=== PATIENT | female | born 1930 | race Caucasian/White ===

== ENCOUNTER → 2016-06-18 | Outpatient (CLI) | payer MEDICARE, OTHER ==
[~2016-06-18] MED LIST: ACID1CHW5 PO; ALLE180T33 PO; AMLO5TAB2 PO; ASPI1TAB PO; ASPI81TA85 PO; CALCTAB68 PO; CLOP75TA2 PO; GABA-279 PO; MULTCAP PO; PLAV75TA38 PO; STRETAB4 PO; VALS1TAB47 PO
--- NOTE | 2016-06-18 17:07 | REPMRS ---
Patient History The patient states she had a clinical breast exam in 05/2016. Patient is postmenopausal and has history of other cancer at age 37. No known family history of cancer. Benign lumpectomy of the left breast. Digital Woman Screen Mammo: June 18, 2016 - Exam #: [id number] Bilateral CC and MLO view(s) were taken. Technologist: Yudy Corrigan, Technologist Prior study comparison: March 20, 2015, digital woman screen mammo performed at [facility]. February 16, 2014, digital woman screen mammo performed at [facility] to [facility]. March 23, 2012, bilateral bilat screen digital mammo, performed at [facility] ([facility]). FINDINGS: The breast tissue is heterogeneously dense. This may lower the sensitivity of mammography. There is a moderate amount of heterogeneously dense fibroglandular tissue which is fairly symmetric. There is no interval development of dominant mass, architectural distortion, or clustered microcalcification typical of malignancy. There has been no change in the appearance of the mammogram from the prior studies. ASSESSMENT: BI-RADS/ACR category 1 mammogram. Negative. Recommendation Routine screening mammogram of both breasts in 1 year (for women over age 40). This mammogram was interpreted with the aid of an FDA-approved computer-aided dectection system. Electronically Signed By: Wu Mathur MD 06/18/16 [id number]
== END ==
LOC: M WHC 14:28
PROVIDERS: ATTEND Nurse Practitioner Family
DX: Z12.31 Encounter for screening mammogram for malignant neoplasm of breast (principal); Z78.0 Asymptomatic menopausal state; Z92.89 Personal history of other medical treatment
CPT/HCPCS: G0202; G0463

== ENCOUNTER → 2016-09-18 | Outpatient (REF) | payer MEDICARE, OTHER ==
[2016-09-18 19:15] LABS: PERCENT SATURATION 15.1 % (13.2-37.4)
== END ==
LOC: M LAB REF 17:23
PROVIDERS: ATTEND Internal Medicine
DX: D64.9 Anemia, unspecified (principal)

== ENCOUNTER → 2017-01-22 | Outpatient (REF) | payer MEDICARE, OTHER, MEDICAID ==
[~2017-01-22] MED LIST changes: +PLAV1TAB2 PO; -PLAV75TA38 PO
[2017-01-22 21:27] LABS: PERCENT SATURATION 20.1 % (13.2-45.0)
== END ==
LOC: M LAB REF 15:01
PROVIDERS: ATTEND Internal Medicine
DX: D50.9 Iron deficiency anemia, unspecified (principal)

== ENCOUNTER → 2017-01-27 | Outpatient (REF) | payer MEDICARE, OTHER, MEDICAID | LOC: M LAB REF 14:54 | PROVIDERS: ATTEND Internal Medicine | DX: N30.00 Acute cystitis without hematuria (principal) ==

== ENCOUNTER 2017-04-13 05:51 | Inpatient (IN) | payer MEDICARE, OTHER, MEDICAID ==
[~2017-04-13] VITALS: Ht 157.5 cm; Wt 58.7 kg
[2017-04-13 07:13] LABS: BASO # 0.1 10^3/uL (0.0-0.2); BASO % 0.4 % (0.0-1.0); EOS # 0.5 10^3/uL (0.0-0.50); EOS % 3.2 % (0.0-3.0); IMMATURE GRANULOCYTE % 0.7 % (0-0); LYMPH # 1.2 10^3/uL (1.5-4.5); LYMPH % 8.2 % (24.0-44.0); MEAN CORPUSCULAR HEMOGLOBIN 30.6 pg (27.0-33.0); MEAN CORPUSCULAR HGB CONC 32.7 g/dl (32.0-36.5); MEAN CORPUSCULAR VOLUME 93.6 fl (80.0-96.0); MONO # 0.5 10^3/uL (0.0-0.8); MONO % 3.8 % (0.0-5.0); NEUTROPHILS # 11.7 10^3/uL (1.8-7.7); NEUTROPHILS % 83.7 % (36.0-66.0); PLATELET COUNT, AUTOMATED 295 10^3/uL (150-450); RED CELL DISTRIBUTION WIDTH 13.7 % (11.5-14.5)
[2017-04-13 07:24] LABS: INR 0.98
[2017-04-13 07:40] LABS: ANION GAP 4 MEQ/L (8-16); BLOOD UREA NITROGEN 14 MG/DL (7-18); CALCIUM LEVEL 8.9 MG/DL (8.8-10.2); CARBON DIOXIDE LEVEL 29 MEQ/L (21-32); CHLORIDE LEVEL 108 MEQ/L (98-107); CREATININE FOR GFR 0.75 MG/DL (0.55-1.02); GLOMERULAR FILTRATION RATE > 60.0 (>32); GLUCOSE, FASTING 110 MG/DL (83-110); POTASSIUM SERUM 4.4 MEQ/L (3.5-5.1); SODIUM LEVEL 141 MEQ/L (136-145)
--- NOTE | 2017-04-13 08:08 | REP ---
Clinical: Trauma. Fall. Technique: Frontal view of the pelvis with AP and cross-table lateral views of the right hip. Findings: There is a comminuted intertrochanteric fracture of the right hip. Underlying osteopenia and degenerative changes noted throughout the visualized lumbosacral spine, pelvis and hips. Vascular calcifications noted. No subcutaneous emphysema. Impression: Acute comminuted intertrochanteric fracture of the right hip. Signed by Julio De La Vega MD 04/13/2017 08:00 A
[2017-04-13] MEDS: VALSARTAN 80 MG TAB (DIOVAN) PO SCH (09:00)
[2017-04-13] MEDS: DOCUSATE SODIUM 100 MG CAP PO SCH ×2 (09:00→21:00)
[2017-04-13] MEDS ORDERED: VALSARTAN 80 MG TAB (DIOVAN) PO ONE (09:00)
[2017-04-13] MEDS ORDERED: amLODIPine 5 MG TAB PO ONE (09:00)
[2017-04-13] MEDS ORDERED: amLODIPine 5 MG TAB PO SCH (09:00)
[2017-04-13] MEDS: FERROUS GLUCONATE 324 MG TAB PO SCH (09:00)
[2017-04-13] MEDS: FEXOFENADINE 60 MG TAB PO SCH (09:00)
--- NOTE | 2017-04-13 09:40 | REP ---
Clinical: Hip fracture. Technique: AP and lateral views of the right knee. Findings: Osteopenia and degenerative changes are appreciated. No acute fracture or dislocation is identified involving the knee. Vascular calcifications noted. Impression: Osteopenia and degenerative changes. No acute knee fracture / dislocation. Signed by Julio De La Vega MD 04/13/2017 09:32 A
[2017-04-13] MEDS ORDERED: MORPHINE 2 MG/ML 1ML SYRINGE IV ONE (10:15)
--- NOTE | 2017-04-13 10:22 | HPEPDOC ---
[facility] Medical History & Physical Date of Admission Apr 13, 2017 Primary Care Physician: TREY GONZALES DO Attending Physician: KEENA TA MD History and Physical PRIMARY CARE PROVIDER: Trey Gonzales ATTENDING: Keena Ta MD CHIEF COMPLAINT: Right hip pain HISTORY OF PRESENT ILLNESS: This is a 86-year-old female past medical history of peripheral artery disease with left leg ischemia and 2013 status post thrombus lysis, osteoporosis, hypertension, history of uterine cancer status post hysterectomy, history of GI bleed who presents with right hip pain status post fall. Patient states her fall was mechanical in nature which occurred as she was getting up to reach for her purse. She reached for her walker for stabilization however lost her balance and fell on her right side resulting in hip pain. Patient denies any loss of consciousness. No head trauma. No chest pain/ shortness of breath/palpitations. No headache or dizziness. No focal weakness. Patient denies nausea/vomiting/abdominal pain. No diarrhea. No dysuria. Says she occasionally has urinary incontinence. Of note, patient does states that she is still functional as she can be with her walker and states she walks all around [facility] with her walker, without chest pain/shortness of breath/palpitations on ambulation. She denies any history of heart disease. PAST MEDICAL HISTORY: As per HPI PAST SURGICAL HISTORY: Hysterectomy and thrombolysis of the left lower extremity in 2012. SOCIAL HISTORY: Denies tobacco, alcohol, illicit drug use. Lives at [facility]. FAMILY HISTORY: Noncontributory ALLERGIES: Please see below. REVIEW OF SYSTEMS: HEENT: Denies sore throat/headache CARDIOVASCULAR: Denies chest pain/palpitations RESPIRATORY: Denies shortness of breath/cough GASTROINTESTINAL: denies nausea/vomiting GENITOURINARY: Denies dysuria/urinary urgency. MUSCULOSKELETAL: Denies myalgias/arthralgias NEUROLOGICAL: Denies any focal weakness HOME MEDICATIONS: Please see below. PHYSICAL EXAMINATION: Vitals: (see below) General: No acute distress, laying comfortably in bed. HEENT: Moist mucous membranes. Neck: No JVD or lymphadenopathy Cardiac: RRR, No murmurs Pulm: Clear to auscultation b/l. No wheezing, rhonchi Abd: NT/ND + BS Ext: No edema or cyanosis. Right hip pain with movements. Distal pulses intact. LABORATORY DATA: See below. IMAGING: X-ray right hip 04/13/17 Impression: Acute comminuted intertrochanteric fracture of the right hip. Chest x-ray 04/13/70 with no acute pulmonary disease MICROBIOLOGY: Please see below. ASSESSMENT/PLAN: 1. Acute comminuted intertrochanteric fracture of the right hip status post mechanical fall. Patient denies any chest pain/syncope/shortness of breath/ palpitations. She has moderate functional status, however is difficult to gauge her exertional status. She has no history of heart disease that she notes. Orthopedics and tends to take the patient to the OR today. We will optimize the patient's blood pressure prior to that. The patient's RCRI score is 0 with a 0.4% risk of major cardiac events. She will be undergoing a intermediate risk procedure. 2. Hypertensive urgency- patient states she did not take her blood pressure medications this morning, and she is in pain is well. We will restart the patient's home blood pressure medications. Blood pressure improved after starting home meds.. 3. Peripheral artery disease status post thrombolysis in 2012- aspirin and Plavix on hold for now pending OR. Consider restarting depending on DVT prophylaxis per orthopedics after the OR. 4. History of osteopenia/osteoporosis- on calcium. We'll need to follow-up with her primary care physician for starting bisphosphonates 5. History of GI bleed, stable. Hemoglobin stable. No need for transfusion at this time. 6. History of uterine cancer status post hysterectomy 7. Leukocytosis- likely reactive secondary to mechanical fall. Afebrile. Denies cough/dysuria. No diarrhea. No rash. Blood cultures sent. Chest x-ray negative. Urinalysis pending. Continue to monitor. If WBC continues to rise, or a source of infection is noted, consider starting antibiotics. DVT prophylaxis- per orthopedics Patient is medically optimized. Vital Signs Vital Signs Date Time Temp Pulse Resp B/P (MAP) Pulse Ox O2 Delivery O2 Flow Rate FiO2 04/13/17 09:51 196/80 04/13/17 09:49 94 04/13/17 06:12 98.3 20 95 Room Air Laboratory Data Labs 24H Laboratory Tests 2 04/13/17 06:56: Immature Granulocyte % (Auto) 0.7H, White Blood Count 14.0H, Red Blood Count 4.38, Hemoglobin 13.4, Hematocrit 41.0, Mean Corpuscular Volume 93.6, Mean Corpuscular Hemoglobin 30.6, Mean Corpuscular Hemoglobin Concent 32.7, Red Cell Distribution Width 13.7, Platelet Count 295, Neutrophils (%) (Auto) 83.7H, Lymphocytes (%) (Auto) 8.2L, Monocytes (%) (Auto) 3.8, Eosinophils (%) (Auto) 3.2H, Basophils (%) (Auto) 0.4, Neutrophils # (Auto) 11.7H, Lymphocytes # (Auto ) 1.2L, Monocytes # (Auto) 0.5, Eosinophils # (Auto) 0.5, Basophils # (Auto) 0.1 , Immature Granulocyte # (Auto) 0.1H, Nucleated Red Blood Cells % (auto) 0.0, Prothrombin Time 13.1, Prothromb Time International Ratio 0.98, Anion Gap 4L, Glomerular Filtration Rate > 60.0, Blood Urea Nitrogen 14, Creatinine 0.75, Sodium Level 141, Potassium Level 4.4, Chloride Level 108H, Carbon Dioxide Level 29, Calcium Level 8.9 CBC/BMP Laboratory Tests 04/13/17 06:56 Red Blood Count 4.38, Mean Corpuscular Volume 93.6, Mean Corpuscular Hemoglobin 30.6, Mean Corpuscular Hemoglobin Concent 32.7, Red Cell Distribution Width 13.7 , Neutrophils (%) (Auto) 83.7 H, Lymphocytes (%) (Auto) 8.2 L, Monocytes (%) ( Auto) 3.8, Eosinophils (%) (Auto) 3.2 H, Basophils (%) (Auto) 0.4, Neutrophils # (Auto) 11.7 H, Lymphocytes # (Auto) 1.2 L, Monocytes # (Auto) 0.5, Eosinophils # (Auto) 0.5, Basophils # (Auto) 0.1, Calcium Level 8.9 Home Medications Scheduled (Dorzolamide HCl/Timolol M 22.3-6.8 mg/ml) 1 Mirna Mirna, 1 DROP OU BID Amlodipine Besylate (Amlodipine Besylate) 5 Mg Tab, 5 MG PO DAILY Calcium/Vitamin D (Calcium 600 + D 600-400 mg-Unit) 1 Tab Tab, 1 TAB PO BID Clopidogrel Bisulfate (Plavix) 75 Mg Tab, 75 MG PO DAILY Ferrous Gluconate (Ferrous Gluconate) 324 Mg Tab, 324 MG PO DAILY Fexofenadine Hydrochloride (Adrienne Allergy) 180 Mg Tab, 180 MG PO DAILY 1200 Gabapentin (Gabapentin) 100 Mg Cap, 100 MG PO QPM Lactobacillus (Acidophilus) 1 Tab Tab, 1 TAB PO BID Latanoprost (Latanoprost) 50 Drop/2.5 Ml Soln, 1 DROP OU QHS Ranitidine HCl (Ranitidine HCl) 150 Mg Tab, 1 TAB PO DAILY 1200 Valsartan (Valsartan) 160 Mg Tab, 160 MG PO DAILY Scheduled PRN Acetaminophen (Acetaminophen) 500 Mg Tab, 500 MG PO Q8H PRN for PAIN Fluocinonide (Fluocinonide-E) 0.05 % Cre, 0.05 % TOP BID PRN for BCC APPLY TO FOREHEAD Milk Of Magnesia (Milk of Magnesia) 1,200 Mg/15 Ml Mabel, 30 ML PO DAILY PRN for CONSTIPATION Allergies Coded Allergies: Sulfa Drugs (Unverified Allergy, Mild, 08/25/12) Sulfa Drugs Cross Reactors (Unverified Allergy, Mild, 08/25/12) KEENA TA MD Apr 13, 2017 10:22
--- NOTE | 2017-04-13 10:49 | REP ---
Clinical: Shortness of breath. Comparison: None . Findings: The mediastinum and cardiac silhouette are stable and within normal limits for portable technique. The lung [place] are clear without acute consolidation, effusion, or pneumothorax. Skeletal structures are intact. Impression: No definite acute cardiopulmonary process by portable examination. Signed by Julio De La Vega MD 04/13/2017 10:40 A
[2017-04-13] MEDS ORDERED: hydrALAZINE INJ 20 MG/ML VIAL IV STA (11:01)
[2017-04-13] MEDS ORDERED: MORPHINE 2 MG/ML 1ML SYRINGE IV PRN ×2 (11:15→22:45)
[2017-04-13] MEDS ORDERED: ONDANSETRON 4MG/2ML VIAL (J2405) IV PRN ×3 (11:15→22:45)
[2017-04-13] MEDS ORDERED: MILKSUS PO (12:31)
[2017-04-13] MEDS ORDERED: FLUOCRE TOP (12:31)
[2017-04-13] MEDS ORDERED: ACET50TAOT PO (12:31)
[2017-04-13] MEDS ORDERED: DORZ2SOL5 OU (12:31)
[2017-04-13] MEDS ORDERED: ACIDTAB7 PO (12:31)
[2017-04-13] MEDS ORDERED: LATA5OPD OU (12:35)
[2017-04-13] MEDS ORDERED: RANI150T PO (12:35)
[2017-04-13] MEDS ORDERED: FERR32TA PO (12:35)
--- NOTE | 2017-04-13 14:44 | CR ---
DATE OF CONSULTATION: 04/13/2017 INDICATION: Right hip fracture. HISTORY OF PRESENT ILLNESS: Mrs. Patel is a very pleasant 86-year-old female who suffered a mechanical fall and landed on her right hip. She had immediate pain and was unable to bear weight. The patient denied loss of consciousness. She is currently admitted to the hospitalist service, but physically in the emergency department. She is reporting right hip pain, 6 out of 10 on the pain scale. Denies right knee pain. Denies numbness and tingling. Past medical history notable for peripheral vascular disease and a left lower extremity thrombus, status post embolectomy. She takes Plavix and aspirin for that. For the rest of the patient's past medical history, past surgical history, medications, allergies, and review of systems, please see the admitting history and physical by the hospitalist, which I personally reviewed. SOCIAL HISTORY: Patient is a walker ambulator and she does get out of the house fairly regularly. She does not smoke, abuse alcohol or illicit drugs. Her daughter Dawna is her healthcare proxy. Phone number [phone]. REVIEW OF SYSTEMS: The patient denies neurologic, cardiac, pulmonary or abdominal symptoms. Musculoskeletal symptoms as above. PHYSICAL EXAMINATION: Exam reveals and elderly female in no distress. She is alert and oriented times three. Neurologic appropriate mood and pleasant affect. HEENT: Patient has a deep abrasion/wound over her forehead from a dermatologic procedure, unrelated to the fall. Extraocular movements intact. CARDIOVASCULAR: She has a 2+ dorsalis pedis pulse with a regular rate and the foot is warm and well perfused. PULMONARY: Regular, nonlabored breathing. ABDOMEN: Nontender, nondistended. SKIN: Skin in the right hip is intact without lesions. MUSCULOSKELETAL: The patient's right leg is slightly shortened and externally rotated. She is tender to palpation at the greater trochanter. There is no significant bruising, no hematoma, and the knee is nontender. She wiggles her toes and sensation to light touch is grossly intact distally. RADIOLOGY: Two views of the right hip, femur and knee were obtained and available for my review. There is a mildly displaced three part proximal femur fracture, which is intertrochanteric. There is mild degenerative changes of the hip joint. I do not appreciate any pathologic lesions. Peripheral artery calcification. ASSESSMENT/PLAN: Mrs. Patel is an 86-year-old female with a right hip intertrochanteric fracture. She has already been evaluated by the hospitalist and has been medically optimized other than getting her blood pressure down a touch. It is already better from admission. The plan is to proceed with an open reduction internal fixation (ORIF) using a long cephalomedullary nail later today if the operating room will accommodate this. I had a long discussion with the patient about operative and nonoperative treatment as well as different surgical options. I have recommended ORIF with a cephalomedullary nail. Plan would be to do a long nail, certainly an intermediate short nail is also acceptable. After a full discussion of the risks and benefits, written informed consent was obtained. I have attempted to reach her daughter Dawna and have been unsuccessful and will try to touch base prior to surgery.
[2017-04-13] MEDS ORDERED: hydrALAZINE INJ 20 MG/ML VIAL IV SCH (15:00)
[2017-04-13 16:00] VITALS: BP 145/72
[2017-04-13] MEDS ORDERED: MOM 30ML SUSPENSION UDC PO PRN (16:30)
[2017-04-13] MEDS ORDERED: FLUOCINONIDE 0.05% CREAM 15 GM TOP PRN (16:30)
[2017-04-13] MEDS ORDERED: ceFAZolin 1GM INJ (J0690) As Ordered ONE ×2 (19:45→20:04)
[2017-04-13] MEDS ORDERED: fentaNYL 100 MCG/2 ML INJECTION (J3010) As Ordered ONE ×2 (20:40→20:57)
[2017-04-13] MEDS ORDERED: ROCURONIUM BROMIDE 50 MG/5 ML VIAL/SYRINGE As Ordered ONE (20:40)
[2017-04-13] MEDS ORDERED: LIDOCAINE 2% INJ 100 MG/5 ML SDV (FOR ANES.) As Ordered ONE (20:40)
[2017-04-13] MEDS ORDERED: MIDAZOLAM INJ 2 MG/2 ML VIAL (J2250) As Ordered ONE (20:40)
[2017-04-13] MEDS ORDERED: PROPOFOL 200 MG/20 ML VIAL As Ordered ONE (20:40)
[2017-04-13] MEDS: COSOPT OCUMETER PLUS 10ML (DORZOLAMIDE/TIMOLOL) OU SCH (21:00)
[2017-04-13] MEDS ORDERED: PHENYLephrine HCL 500 MCG/5 ML (100MCG/ML) SYRINGE (J2370) As Ordered ONE (21:07)
[2017-04-13] MEDS ORDERED: ePHEDrine SULFATE 25 MG/5 ML(5MG/ML) SYRINGE As Ordered ONE (21:08)
[2017-04-13] MEDS ORDERED: ONDANSETRON 4MG/2ML VIAL (J2405) As Ordered ONE ×2 (21:12→22:39)
[2017-04-13] MEDS ORDERED: NEOSTIGMINE 10 MG/10 ML VIAL (J2710) As Ordered ONE (21:13)
[2017-04-13] MEDS ORDERED: GLYCOPYRROLATE INJ 0.2 MG/ML 2 ML VIAL As Ordered ONE (21:13)
--- NOTE | 2017-04-13 21:20 | ECGEPIP ---
Stationary ECG Study [facility] Test Date: 2017-04-13 Pat Name: BEN HIDALGO Department: Room: [place] [address] Gender: F Fire Lieutenant Marine: AFUA : [id number] Requested By: KEENA TA Order Number: [id number] Reading MD: Damion Ku Measurements Intervals [place] Rate: 89 P: 32 AK: 154 QRS: -3 QRSD: 86 T: 0 QT: 354 QTc: 431 Interpretive Statements Normal sinus rhythm Nonspecific ST-T wave abnormalities Comparison tracing not on file Electronically Signed On 04-13-2017 21:20:49 EST by Damion Ku
[2017-04-13] MEDS ORDERED: LR 1,000 ML IV SCH ×2 (22:45)
[2017-04-13] MEDS ORDERED: ACETAMINOPH W/CODEINE #3 TAB UD PO PRN (22:45)
[2017-04-13] MEDS ORDERED: fentaNYL 100 MCG/2 ML INJECTION (J3010) IV PRN ×2 (22:45→23:00)
[2017-04-13] MEDS ORDERED: METOCLOPRAMIDE INJ 10MG/2ML VIAL (J2765) As Ordered ONE (22:56)
[2017-04-13] MEDS ORDERED: FLEET ENEMA PR PRN (23:00)
[2017-04-13] MEDS ORDERED: METOCLOPRAMIDE INJ 10MG/2ML VIAL (J2765) IV PRN (23:15)
[2017-04-14] VITALS (7 sets, daily range): BP systolic 123–152; BP diastolic 50–73
--- NOTE | 2017-04-14 00:32 | RO ---
DATE OF PROCEDURE: 04/13/2017 PREPROCEDURE DIAGNOSIS: Right hip intertrochanteric fracture. POSTPROCEDURE DIAGNOSIS: Right hip intertrochanteric fracture. PROCEDURE: Open reduction internal fixation right femur with a long cephalomedullary nail. SURGEON: Dr. Zachary Aguilar METAL CUTTER: Dr. Guera Black ANESTHESIA: General. IV FLUIDS: Lactated Ringer's. ESTIMATED BLOOD LOSS: 50 mL. URINE OUTPUT: 300 mL IMPLANTS: Synthes long TFN 11 x 320 mm, 85 mm helical blade and distal locking screws times two. CLOSURE: Grace. INDICATIONS: Mrs. Patel is an 86-year-old female who suffered a mechanical fall earlier this morning and sustained a right proximal femur fracture. She was admitted to the hospitalists and medically optimized. I had a long conversation with both the patient and her daughter, who is the healthcare proxy, about operative and nonoperative treatment, as well as various surgical options. I recommended ORIF with a long cephalomedullary nail to stabilize the whole femur. Full risks and benefits were discussed and written informed consent was obtained. DESCRIPTION OF PROCEDURE: The patient was identified in the preoperative holding area, and the right hip was signed by myself. She was brought to the operating room and placed supine on a well-padded operating room (OR) table. General anesthesia induced without complication. She received appropriate intravenous (IV) antibiotics within 1 hour of incision. Preliminarily time-out performed per hospital protocol. The patient was placed into the fracture table, and a successful closed reduction was performed with longitudinal traction and internal rotation. Reduction confirmed on AP and lateral views using the C-arm fluoroscopy. The right leg was then prepped and draped in the normal sterile fashion and a shower curtain placed. Prior to incision, a time-out was performed with myself and all OR staff, confirming the patient's name, medical record number, date of and the correct side, site and procedure. A 3 cm incision was made with the #10 blade just proximal to the tip of the greater trochanter. Hemostasis with electrocautery as this patient was on Plavix. Dissection to the tensor fascia walker, which was then split carefully with curved [place] scissors. Blunt finger dissection down to the tip of the greater trochanter. A threaded guide pin was then placed at the appropriate start point and confirmed on AP and lateral views using the large C-arm. Guide pin was advanced with a mallet to the appropriate depth. The tissue protector and opening reamer were then used over the guide pin to create an opening in the proximal femur. A ball-tip guidewire was then placed through that opening down to the proximal pole of the patella. Position checked on AP and lateral views at the knee. The measuring device was used, and it was felt that a 320 mm nail would be most appropriate. The femur was then sequentially reamed with cannulated reamers up to a 12.5 in diameter. A Synthes long TFN 320 x 11 mm nail was opened, 125-degree neck angle and placed on its consulting business developer. This was placed over the guidewire and malleted to the appropriate depth. The guidewire was then removed. The targeting arm was then used to place the helical blade. The appropriate trocars were positioned and a separate incision made for those trocars. The guide pin was placed on power into the appropriate position on AP and lateral views using fluoroscopy. It measured a 85 mm length. The triple reamer was then used, set to 85. An 85 mm helical blade was then malleted over the guidewire with excellent fixation. The set screw was then placed and kept in the locked position. Repeat AP and lateral views obtained showing a successful ORIF of the right proximal femur. Attention was then turned to distal locking screws. Using perfect atka technique, I placed two distal locking screws, one through the distal most hole and the other through the dynamic slot. There was excellent fixation. Appropriate position confirmed on AP and lateral views using fluoroscopy. Final x-rays of the hip and knee were taken showing successful reduction and hardware placement. All incisions were extensively irrigated with normal saline and then proximally the iliotibial (IT) band closed with [id number] #0 Vicryl sutures, then re-irrigation, closed with #2-0 Vicryl and grace. Distal incisions closed with grace. There was good hemostasis at closure. A bulky sterile bandage was applied. All counts correct times two. Complications: None. Disposition: The patient was transferred to the post-anesthesia care unit (PACU) in stable condition. She will remain under the care of the hospitalists. Twenty-four hours of IV antibiotics.
[2017-04-14] MEDS: CEFAZOLIN SOD 1 GM in APPROPRIATE DILUENT 1 EA IV SCH ×2 (04:25→11:34)
[2017-04-14] MEDS: ACETAMINOPHEN TAB 650MG DOSE (2X325MG) PO PRN ×4 (06:12→20:49)
[2017-04-14 06:41] LABS: MEAN CORPUSCULAR HEMOGLOBIN 30.8 pg (27.0-33.0); MEAN CORPUSCULAR HGB CONC 32.4 g/dl (32.0-36.5); MEAN CORPUSCULAR VOLUME 95.1 fl (80.0-96.0); PLATELET COUNT, AUTOMATED 223 10^3/uL (150-450); RED CELL DISTRIBUTION WIDTH 13.7 % (11.5-14.5)
[2017-04-14 06:58] LABS: ANION GAP 6 MEQ/L (8-16); BLOOD UREA NITROGEN 12 MG/DL (7-18); CALCIUM LEVEL 8.2 MG/DL (8.8-10.2); CARBON DIOXIDE LEVEL 28 MEQ/L (21-32); CHLORIDE LEVEL 106 MEQ/L (98-107); CREATININE FOR GFR 0.87 MG/DL (0.55-1.02); GLOMERULAR FILTRATION RATE > 60.0 (>32); GLUCOSE, FASTING 132 MG/DL (83-110); MAGNESIUM LEVEL 1.6 MG/DL (1.8-2.4); POTASSIUM SERUM 4.1 MEQ/L (3.5-5.1); SODIUM LEVEL 140 MEQ/L (136-145)
[2017-04-14] MEDS ORDERED: MOM 30ML SUSPENSION UDC PO SCH (07:00)
[2017-04-14] MEDS: MIRALAX *UNIT DOSE* 17GM PACKET PO SCH (07:47)
[2017-04-14] MEDS: COSOPT OCUMETER PLUS 10ML (DORZOLAMIDE/TIMOLOL) OU SCH ×2 (07:47→20:49)
[2017-04-14] MEDS: FEXOFENADINE 60 MG TAB PO SCH (07:48)
[2017-04-14] MEDS: ENOXAPARIN 40 MG/0.4 ML SYRINGE (J1650) SC SCH (07:48)
[2017-04-14] MEDS: DOCUSATE SODIUM 100 MG CAP PO SCH ×2 (07:49→20:49)
[2017-04-14] MEDS: VALSARTAN 80 MG TAB (DIOVAN) PO SCH (07:49)
[2017-04-14] MEDS: VITAMIN D 1,000 INTERNATIONAL UNITS TABLET PO SCH (07:49)
[2017-04-14] MEDS: FERROUS GLUCONATE 324 MG TAB PO SCH (07:49)
[2017-04-14] MEDS: amLODIPine 5 MG TAB PO SCH (07:50)
--- NOTE | 2017-04-14 07:55 | REP ---
Clinical: Status post fixation. Technique: Real time intraoperative fluoroscopic imaging. Findings: 15 intraoperative fluoroscopic images demonstrate the patient to be status post open reduction and fixation for intertrochanteric femoral neck fracture. Intermedullary fam and compression screws are identified in satisfactory position. Satisfactory reduction at the fracture is appreciated. Total fluoroscopic time 2 minutes 5 seconds. Impression: Status post open reduction and fixation for intertrochanteric femoral neck fracture. Satisfactory hardware placement and fracture reduction. Signed by Julio De La Vega MD 04/14/2017 07:47 A
[2017-04-14] MEDS ORDERED: SENOKOT S TAB PO SCH (09:00)
--- NOTE | 2017-04-14 09:23 | REP ---
Clinical: Postoperative baseline assessment. Technique: AP and cross-table lateral views of the right femur. Findings: The patient is status post open reduction and fixation for intertrochanteric femoral neck fracture. Intermedullary fam and compression screws are in satisfactory position. Satisfactory reduction at the fracture site noted. Vascular calcifications are identified along with postsurgical changes to the surrounding soft tissues. Impression: Status post open reduction and fixation for intertrochanteric femoral neck fracture. Signed by Julio De La Vega MD 04/14/2017 09:13 A
--- NOTE | 2017-04-14 09:45 | IPN ---
DATE OF SERVICE: 04/14/2017 Ms. Patel has no complaints of pain, chest pain, shortness of breath this morning. No even complaining of any hip pain. Temperature is 98.3, pulse 103, respiratory rate 16, blood pressure 127/53, 98% on 2 liters. Input and output notable for positive fluid balance of 610. No bowel movements noted. Body mass index 21.6. Is awake, appropriately interactive, somewhat inconsistent with her speech in that she does not always answer my questions appropriately. Appears though she may be hard of hearing. Mucous membranes moist. Neck supple. She just finished breakfast. Breathing is symmetric and rested. Heart is distant sounding. Abdomen is soft, doughy, nontender. White cell count 11, hemoglobin 10.6, platelets 223. BUN 12, creatinine 0.87, magnesium 1.6. ASSESSMENT: This is an 86-year-old with mechanical fall and hip fracture status post open reduction internal fixation (ORIF) of the right hip. PLAN: 1. Orthopedic. Deep venous thrombosis (DVT) prophylaxis, gastrointestinal (GI) prophylaxis, activity and pain management per orthopedics. Would minimize pain medication as I suspect it will lead to confusion in this patient. Evidence by lab of post operative acute blood loss anemia. 2. Patient has had elevated blood pressure, was diagnosed with hypertensive urgency at the time of presentation. Currently blood pressure is reasonably well controlled. 3. Patient has a history of peripheral artery disease status post thrombolysis. Aspirin and Plavix are on hold. 4. Patient has osteopenia and osteoporosis. 5. Patient has history of GI bleed. 6. Patient has history of uterine cancer status post hysterectomy. 7. Patient has leukocytosis at the time of presentation which is most likely reactive. 8. This would be an excellent candidate for Pain Medicine and Rehabilitation. YOEL
[2017-04-14] MEDS ORDERED: MAG SULF 1GM/100ML (MAG RUN) 1 GM in APPROPRIATE DILUENT 1 EA IV ONE (10:00)
[2017-04-15 06:00] VITALS: BP 135/63
[2017-04-15] MEDS: ACETAMINOPHEN TAB 650MG DOSE (2X325MG) PO PRN (06:13)
[2017-04-15 06:44] LABS: MEAN CORPUSCULAR HEMOGLOBIN 30.8 pg (27.0-33.0); MEAN CORPUSCULAR HGB CONC 32.4 g/dl (32.0-36.5); MEAN CORPUSCULAR VOLUME 95.1 fl (80.0-96.0); PLATELET COUNT, AUTOMATED 202 10^3/uL (150-450); RED CELL DISTRIBUTION WIDTH 13.9 % (11.5-14.5); WHITE BLOOD COUNT 10.3 10^3/uL (4.0-10.0)
[2017-04-15 07:10] LABS: ANION GAP 6 MEQ/L (8-16); BLOOD UREA NITROGEN 14 MG/DL (7-18); CALCIUM LEVEL 8.1 MG/DL (8.8-10.2); CARBON DIOXIDE LEVEL 29 MEQ/L (21-32); CHLORIDE LEVEL 104 MEQ/L (98-107); CREATININE FOR GFR 0.85 MG/DL (0.55-1.02); GLOMERULAR FILTRATION RATE > 60.0 (>32); GLUCOSE, FASTING 137 MG/DL (83-110); MAGNESIUM LEVEL 2.1 MG/DL (1.8-2.4); POTASSIUM SERUM 4.1 MEQ/L (3.5-5.1); SODIUM LEVEL 139 MEQ/L (136-145)
[2017-04-15] MEDS ORDERED: LOVE1INJ SC (07:57)
[2017-04-15] MEDS ORDERED: HYDR-3713 PO (07:57)
[2017-04-15] MEDS: DOCUSATE SODIUM 100 MG CAP PO SCH (08:37)
[2017-04-15] MEDS: VITAMIN D 1,000 INTERNATIONAL UNITS TABLET PO SCH (08:37)
[2017-04-15] MEDS: FERROUS GLUCONATE 324 MG TAB PO SCH (08:37)
[2017-04-15] MEDS: MIRALAX *UNIT DOSE* 17GM PACKET PO SCH (08:37)
[2017-04-15] MEDS: ENOXAPARIN 40 MG/0.4 ML SYRINGE (J1650) SC SCH (08:38)
[2017-04-15] MEDS: FEXOFENADINE 60 MG TAB PO SCH (08:38)
[2017-04-15 08:40] VITALS: BP 129/54
[2017-04-15] MEDS: amLODIPine 5 MG TAB PO SCH (08:40)
[2017-04-15] MEDS: COSOPT OCUMETER PLUS 10ML (DORZOLAMIDE/TIMOLOL) OU SCH (08:41)
[2017-04-15] MEDS: VALSARTAN 80 MG TAB (DIOVAN) PO SCH (08:41)
[2017-04-15] MEDS ORDERED: NORCO, ANEXSIA 5/325MG TABLET (HYDROcodone/ACETAMINOPHEN) PO PRN ×2 (09:15)
--- NOTE | 2017-04-15 16:52 | DSES ---
DATE OF ADMISSION: 04/13/2017 DATE OF DISCHARGE: 04/15/2017 SPECIALISTS INVOLVED DURING HER STAY: Include: Dr. Aguilar PROCEDURES PERFORMED DURING HER STAY: Included: Open reduction internal fixation (ORIF) of the right femur with a long cephalomedullary nail. No complications during her stay. DISCHARGE DIAGNOSES: 1. Mechanical fall. 2. Right hip fracture. 3. Acute postoperative blood loss anemia, not requiring transfusion. 4. Hypertension. 5. Hypertensive urgency. 6. Peripheral artery disease. 7. Osteopenia. 8. Osteoporosis. 9. History of gastrointestinal (GI) bleed. 10. History of uterine cancer. 11. Leukocytosis, thought to be reactive. SUMMARY OF HER HOSPITALIZATION: This is an 86-year-old resident [facility] who fell as she was reaching for her purse. She had immediate right-sided hip pain and was admitted to the hospitalist service. She was seen by Dr. Aguilar who performed operative repair of her right intratrochanteric hip fracture. She did well postoperatively. Pain is reasonably well controlled with minimal medication in the form of Tylenol. She has required some oxygen which she may require at night until she is up and moving around. On the date of discharge, she is feeling well with no complaints. She has tolerated breakfast. Temperature is 98.8, pulse 81, respiratory rate 15, blood pressure 135/63, 95% on two liters. Intake and output notable for a positive fluid balance of 1420. No bowel movements have been recorded during her stay. She is awake, appropriately interactive, pleasantly conversant. Mucous membranes are moist. Neck is supple. Breathing is symmetrical. Heart is in a regular rate and rhythm. Radial pulses 2+. Capillary refill is less than two seconds. Abdomen is notable for active bowel sounds, nontender. LABORATORY DATA: White cell count is 10.3, hemoglobin 9.4, down from 13.4 at admission, platelets 202. BUN 14, creatinine 0.8. She did have hypomagnesemia during her stay. Her magnesium level is normalized at 2.1. DISCHARGE INSTRUCTIONS: Include the following: Return visit with Dr. Aguilar 04/27/2017. Walking with a walker, weightbearing as tolerated. Diet as tolerated. Continue: - [place] 5/325 every four hours as needed for pain - Lovenox 40 mg subcutaneously every 28 days - Tylenol every eight hours as needed for pain - Norvasc 5 mg by mouth daily - calcium with vitamin D supplement - dorzolamide/timolol eye drops in each eye twice daily - ferrous gluconate 324 mg by mouth daily - Adrienne 180 mg by mouth daily - fluocinonide cream topically twice daily as needed to her forehead - Neurontin 100 mg every evening - lactobacillus one tablet by mouth twice daily - latanoprost one drop in each eye daily at bedtime - milk of magnesia as needed - Zantac 150 mg by mouth daily - valsartan 160 mg by mouth daily Discontinue Plavix for now and this should be reevaluated as an outpatient.
== END 2017-04-15 12:20 | DRG 481 ==
LOC: M ED 05:51 → M ED INP 11:19 → M MS5PR 15:52
PROVIDERS: ADMIT Internal Medicine; ATTEND Internal Medicine
PROC: 0QS604Z Reposition Right Upper Femur with Internal Fixation Device, Open Approach (ICD-10-PCS; principal; 2017-04-13 08:42)
DX: S72.141A Displaced intertrochanteric fracture of right femur, initial encounter for closed fracture (principal); D62 Acute posthemorrhagic anemia; M81.0 Age-related osteoporosis without current pathological fracture; I73.9 Peripheral vascular disease, unspecified; I16.0 Hypertensive urgency; I10 Essential (primary) hypertension; Z85.42 Personal history of malignant neoplasm of other parts of uterus; Z90.710 Acquired absence of both cervix and uterus; Z79.02 Long term (current) use of antithrombotics/antiplatelets; Z79.899 Other long term (current) drug therapy; Z88.2 Allergy status to sulfonamides; Z86.718 Personal history of other venous thrombosis and embolism; W01.0XXA Fall on same level from slipping, tripping and stumbling without subsequent striking against object, initial encounter; Y92.9 Unspecified place or not applicable; Y93.01 Activity, walking, marching and hiking; Y99.9 Unspecified external cause status

== ENCOUNTER → 2017-05-06 | Outpatient (CLI) | payer MEDICARE, OTHER, MEDICAID ==
[~2017-05-06] MED LIST changes: +ACET50TAOT PO; +ACIDTAB7 PO; +DORZ2SOL5 OU; +FERR32TA PO; +FLUOCRE TOP; +HYDR-3713 PO; +LATA5OPD OU; +LOVE1INJ SC; +MILKSUS PO; +RANI150T PO
--- NOTE | 2017-05-06 09:10 | REP ---
CT of the pelvis for fracture: There is gamma nail internal fixation of the right hip. There is callous within the iliac wings posteriorly bilaterally adjacent to the sacroiliac articulations. There is a nondisplaced transverse fracture of the posterior left iliac wing through the area of callus. I suspect there is a nondisplaced fracture in the sacrum on the left adjacent to the fracture in the left iliac wing. There is callus in the sacrum in this location. The I suspect there is a fracture in the area of callus posteriorly in the right iliac wing, but this is difficult to appreciate and is seen to best advantage on the coronal images. No sacral fracture is identified on the right. There is diffuse demineralization. There is grade 4 compression deformity of the L5 vertebral body. There are no retropulsed fragments. Impression: Nondisplaced bilateral iliac wing, sacral and L5 fractures. Diffuse demineralization. Signed by Aaron Ryan MD 05/06/2017 08:57 A
== END ==
LOC: M RAD 08:12
PROVIDERS: ATTEND Orthopaedic Surgery
DX: S72.141D Displaced intertrochanteric fracture of right femur, subsequent encounter for closed fracture with routine healing (principal); X58.XXXD Exposure to other specified factors, subsequent encounter; Y92.89 Other specified places as the place of occurrence of the external cause; Y93.89 Activity, other specified; Y99.8 Other external cause status

== ENCOUNTER → 2017-05-30 | Outpatient (REF) | payer MEDICARE, OTHER, MEDICAID ==
[2017-05-30 11:39] LABS: APPEARANCE, URINE CLOUDY (CLEAR); BACTERIA, URINE AUTO 1+ (NEGATIVE); BILIRUBIN, URINE AUTO NEGATIVE (NEGATIVE); BLOOD, URINE BLOOD 1+ (NEGATIVE); COLOR, URINE YELLOW (YELLOW); GLUCOSE, URINE (UA) AUTO NEGATIVE (NEGATIVE); KETONE, URINE AUTO NEGATIVE (NEGATIVE); LEUKOCYTE ESTERASE, URINE AUTO 3+ (NEGATIVE); MUCUS, URINE SMALL (NEGATIVE); NITRITE, URINE AUTO POSITIVE (NEGATIVE); PROTEIN, URINE AUTO 1+ mg/dL (NEGATIVE); RBC, URINE AUTO 9 /HPF (0-3); SPECIFIC GRAVITY URINE AUTO 1.018 (1.002-1.035); SQUAMOUS EPITHELIAL CELL UR AU 2 /HPF (0-6); UROBILINOGEN, URINE AUTO 0.2 mg/dL (0.0-2.0); WBC, URINE AUTO TNTC /HPF (0-3)
== END ==
LOC: M LAB REF 10:15
DX: N39.0 Urinary tract infection, site not specified (principal)
CPT/HCPCS: 81001

== ENCOUNTER → 2017-06-08 | Outpatient (REF) | payer MEDICARE, OTHER, MEDICAID ==
[2017-06-08 21:13] LABS: APPEARANCE, URINE MANUAL CLOUDY (CLEAR); BILIRUBIN, URINE MANUAL NEGATIVE (NEGATIVE); BLOOD URINE MANUAL POSITIVE (NEGATIVE); COLOR, URINE MANUAL YELLOW (YELLOW); GLUCOSE, URINE (UA) MANUAL NEGATIVE (NEGATIVE); KETONE, URINE MANUAL NEGATIVE (NEGATIVE); LEUKOCYTE ESTERASE, URINE MAN POSITIVE (NEGATIVE); NITRITE, URINE MANUAL POSITIVE (NEGATIVE); PH,URINE MAN 5.5 UNITS (5.0 - 7.0); PROTEIN, URINE MANUAL 2+ mg/dL (NEGATIVE); SPECIFIC GRAVITY,URINE MANUAL 1.015 (1.002-1.035); UROBILINOGEN, URINE MANUAL NORMAL (NORMAL)
[2017-06-08 21:14] LABS: MICROSCOPIC INDICATED? MAN YES (NO)
[2017-06-08 21:26] LABS: BACTERIA, URINE LARGE AMOUNT; HYALINE CAST, URINE NONE SEEN /lpf (0-1); SQUAMOUS EPITHELIAL CELL URINE SMALL AMOUNT /hpf (SMALL AMT); WBC, URINE TNTC /hpf (0-3)
[2017-06-08 21:27] LABS: MICROSCOPIC EXAM PERFORMED
== END ==
LOC: M LAB REF 16:59
DX: N39.0 Urinary tract infection, site not specified (principal)
CPT/HCPCS: 81015

== ENCOUNTER → 2017-08-05 | Outpatient (REF) | payer MEDICARE, OTHER, MEDICAID ==
[2017-08-05 18:19] LABS: APPEARANCE, URINE MANUAL TURBID (CLEAR); COLOR, URINE MANUAL DK YELLOW (YELLOW)
[2017-08-05 18:20] LABS: BILIRUBIN, URINE MANUAL NEGATIVE (NEGATIVE); BLOOD URINE MANUAL POSITIVE (NEGATIVE); GLUCOSE, URINE (UA) MANUAL NEGATIVE (NEGATIVE); KETONE, URINE MANUAL NEGATIVE (NEGATIVE); LEUKOCYTE ESTERASE, URINE MAN POSITIVE (NEGATIVE); MICROSCOPIC INDICATED? MAN YES (NO); NITRITE, URINE MANUAL POSITIVE (NEGATIVE); PROTEIN, URINE MANUAL 2+ mg/dL (NEGATIVE); SPECIFIC GRAVITY,URINE MANUAL 1.025 (1.002-1.035); UROBILINOGEN, URINE MANUAL NORMAL (NORMAL)
[2017-08-05 19:39] LABS: BACTERIA, URINE LARGE AMOUNT; MUCUS, URINE SMALL AMOUNT (NEGATIVE); SQUAMOUS EPITHELIAL CELL URINE MOD AMOUNT /hpf (SMALL AMT); TRANSITIONAL EPI CELLS, URINE SMALL AMOUNT /hpf; WBC, URINE TNTC /hpf (0-3)
[2017-08-05 19:40] LABS: HYALINE CAST, URINE NONE SEEN /lpf (0-1); MICROSCOPIC EXAM PERFORMED
== END ==
LOC: M LAB REF 16:45
DX: N39.0 Urinary tract infection, site not specified (principal)
CPT/HCPCS: 81000

== ENCOUNTER → 2017-10-06 | Outpatient (REF) | payer MEDICARE, OTHER, MEDICAID ==
[2017-10-06 10:40] LABS: APPEARANCE, URINE CLOUDY (CLEAR); BACTERIA, URINE AUTO 2+ (NEGATIVE); BILIRUBIN, URINE AUTO NEGATIVE (NEGATIVE); BLOOD, URINE BLOOD 2+ (NEGATIVE); CALCIUM OXALATE CRYSTALS MODERATE; COLOR, URINE YELLOW (YELLOW); GLUCOSE, URINE (UA) AUTO NEGATIVE (NEGATIVE); KETONE, URINE AUTO NEGATIVE (NEGATIVE); LEUKOCYTE ESTERASE, URINE AUTO 3+ (NEGATIVE); MUCUS, URINE SMALL (NEGATIVE); NITRITE, URINE AUTO NEGATIVE (NEGATIVE); PROTEIN, URINE AUTO NEGATIVE (NEGATIVE); RBC, URINE AUTO 24 /HPF (0-3); SPECIFIC GRAVITY URINE AUTO 1.019 (1.002-1.035); SQUAMOUS EPITHELIAL CELL UR AU 0 /HPF (0-6); UROBILINOGEN, URINE AUTO 0.2 mg/dL (0.0-2.0); WBC, URINE AUTO TNTC /HPF (0-3)
== END ==
DX: R35.0 Frequency of micturition (principal)
CPT/HCPCS: 81001

== ENCOUNTER → 2017-10-22 | Outpatient (REF) | payer MEDICARE, OTHER, MEDICAID ==
[2017-10-22 18:18] LABS: APPEARANCE, URINE TURBID (CLEAR); BACTERIA, URINE AUTO 1+ (NEGATIVE); BILIRUBIN, URINE AUTO NEGATIVE (NEGATIVE); BLOOD, URINE BLOOD 1+ (NEGATIVE); COLOR, URINE YELLOW (YELLOW); GLUCOSE, URINE (UA) AUTO NEGATIVE (NEGATIVE); KETONE, URINE AUTO NEGATIVE (NEGATIVE); LEUKOCYTE ESTERASE, URINE AUTO 3+ (NEGATIVE); NITRITE, URINE AUTO NEGATIVE (NEGATIVE); PROTEIN, URINE AUTO 1+ mg/dL (NEGATIVE); RBC, URINE AUTO 14 /HPF (0-3); SPECIFIC GRAVITY URINE AUTO 1.014 (1.002-1.035); SQUAMOUS EPITHELIAL CELL UR AU 0 /HPF (0-6); UROBILINOGEN, URINE AUTO 0.2 mg/dL (0.0-2.0); WBC, URINE AUTO TNTC /HPF (0-3)
== END ==
DX: R30.9 Painful micturition, unspecified (principal)
CPT/HCPCS: 81001

== ENCOUNTER → 2017-10-30 | Outpatient (REF) | payer MEDICARE, OTHER, MEDICAID ==
[2017-10-30 18:31] LABS: APPEARANCE, URINE CLEAR (CLEAR); BACTERIA, URINE AUTO 1+ (NEGATIVE); BILIRUBIN, URINE AUTO NEGATIVE (NEGATIVE); BLOOD, URINE BLOOD 1+ (NEGATIVE); COLOR, URINE STRAW (YELLOW); GLUCOSE, URINE (UA) AUTO NEGATIVE (NEGATIVE); KETONE, URINE AUTO NEGATIVE (NEGATIVE); LEUKOCYTE ESTERASE, URINE AUTO 2+ (NEGATIVE); MUCUS, URINE SMALL (NEGATIVE); NITRITE, URINE AUTO NEGATIVE (NEGATIVE); PROTEIN, URINE AUTO NEGATIVE (NEGATIVE); RBC, URINE AUTO 1 /HPF (0-3); SPECIFIC GRAVITY URINE AUTO 1.009 (1.002-1.035); SQUAMOUS EPITHELIAL CELL UR AU 0 /HPF (0-6); UROBILINOGEN, URINE AUTO 0.2 mg/dL (0.0-2.0); WBC, URINE AUTO 13 /HPF (0-3)
== END ==
LOC: M SMT 16:53
DX: N39.0 Urinary tract infection, site not specified (principal)
CPT/HCPCS: 81001

== ENCOUNTER → 2017-11-06 | Outpatient (REF) | payer MEDICARE, OTHER, MEDICAID ==
[2017-11-06 19:14] LABS: APPEARANCE, URINE CLOUDY (CLEAR); BACTERIA, URINE AUTO 1+ (NEGATIVE); BILIRUBIN, URINE AUTO NEGATIVE (NEGATIVE); BLOOD, URINE BLOOD 1+ (NEGATIVE); COLOR, URINE YELLOW (YELLOW); GLUCOSE, URINE (UA) AUTO NEGATIVE (NEGATIVE); KETONE, URINE AUTO NEGATIVE (NEGATIVE); LEUKOCYTE ESTERASE, URINE AUTO 3+ (NEGATIVE); MUCUS, URINE SMALL (NEGATIVE); NITRITE, URINE AUTO NEGATIVE (NEGATIVE); PROTEIN, URINE AUTO 1+ mg/dL (NEGATIVE); RBC, URINE AUTO 16 /HPF (0-3); SPECIFIC GRAVITY URINE AUTO 1.018 (1.002-1.035); SQUAMOUS EPITHELIAL CELL UR AU 0 /HPF (0-6); UROBILINOGEN, URINE AUTO 0.2 mg/dL (0.0-2.0); WBC, URINE AUTO TNTC /HPF (0-3)
== END ==
LOC: M LAB REF 12:14
DX: N39.0 Urinary tract infection, site not specified (principal)
CPT/HCPCS: 81001

== ENCOUNTER → 2017-11-12 | Outpatient (REF) | payer MEDICARE, OTHER, MEDICAID ==
[2017-11-12 17:20] LABS: FERRITIN 71 NG/ML (8-252); IRON (FE) 54 UG/DL (50-170); TOTAL IRON BINDING CAPACITY 318 UG/DL (250-450)
== END ==
LOC: M LAB REF 16:51
DX: D50.9 Iron deficiency anemia, unspecified (principal)
CPT/HCPCS: 83550

== ENCOUNTER → 2017-12-03 | Outpatient (CLI) | payer MEDICARE, OTHER, MEDICAID | LOC: M RAD 15:41 | DX: N20.0 Calculus of kidney (principal); M51.04 Intervertebral disc disorders with myelopathy, thoracic region; M51.06 Intervertebral disc disorders with myelopathy, lumbar region | CPT/HCPCS: 74176 ==

== ENCOUNTER → 2017-12-24 | Outpatient (CLI) | payer MEDICARE, OTHER, MEDICAID ==
[2017-12-24 17:53] LABS: HEMATOCRIT 40.7 % (36.0-47.0); MEAN CORPUSCULAR HEMOGLOBIN 30.6 pg (27.0-33.0); MEAN CORPUSCULAR HGB CONC 31.9 g/dl (32.0-36.5); MEAN CORPUSCULAR VOLUME 95.8 fl (80.0-96.0); PLATELET COUNT, AUTOMATED 354 10^3/uL (150-450); RED BLOOD COUNT 4.25 10^6/uL (4.00-5.40); RED CELL DISTRIBUTION WIDTH 14.5 % (11.5-14.5); WHITE BLOOD COUNT 6.4 10^3/uL (4.0-10.0)
[2017-12-24 18:06] LABS: INR 0.93; PARTIAL THROMBOPLASTIN TIME 29.9 SECONDS (25.4-37.6); PROTHROMBIN TIME 12.6 SECONDS (12.1-14.4)
[2017-12-24 19:06] LABS: ANION GAP 8 MEQ/L (8-16); BLOOD UREA NITROGEN 19 MG/DL (7-18); CALCIUM LEVEL 9.6 MG/DL (8.8-10.2); CARBON DIOXIDE LEVEL 32 MEQ/L (21-32); CHLORIDE LEVEL 100 MEQ/L (98-107); CREATININE FOR GFR 0.79 MG/DL (0.55-1.30); GLOMERULAR FILTRATION RATE > 60.0 (>32); GLUCOSE, FASTING 91 MG/DL (70-100); SODIUM LEVEL 140 MEQ/L (136-145)
== END ==
LOC: M SMT 15:40
DX: Z01.818 Encounter for other preprocedural examination (principal); N20.0 Calculus of kidney
CPT/HCPCS: 80048

== ENCOUNTER → 2018-01-14 | Outpatient (REF) | payer MEDICARE, OTHER, MEDICAID ==
[2018-01-15 10:41] LABS: APPEARANCE, URINE HAZY (CLEAR); BACTERIA, URINE AUTO NEGATIVE (NEGATIVE); BILIRUBIN, URINE AUTO NEGATIVE (NEGATIVE); BLOOD, URINE BLOOD NEGATIVE (NEGATIVE); COLOR, URINE YELLOW (YELLOW); GLUCOSE, URINE (UA) AUTO NEGATIVE (NEGATIVE); KETONE, URINE AUTO NEGATIVE (NEGATIVE); LEUKOCYTE ESTERASE, URINE AUTO 3+ (NEGATIVE); MUCUS, URINE SMALL (NEGATIVE); NITRITE, URINE AUTO NEGATIVE (NEGATIVE); PROTEIN, URINE AUTO NEGATIVE (NEGATIVE); RBC, URINE AUTO 2 /HPF (0-3); SPECIFIC GRAVITY URINE AUTO 1.012 (1.002-1.035); SQUAMOUS EPITHELIAL CELL UR AU 0 /HPF (0-6); UROBILINOGEN, URINE AUTO 0.2 mg/dL (0.0-2.0); WBC, URINE AUTO 42 /HPF (0-3)
== END ==
LOC: M SMT 01-15 09:50
DX: N20.0 Calculus of kidney (principal); Z01.818 Encounter for other preprocedural examination
CPT/HCPCS: 81001

== ENCOUNTER 2018-01-21 11:46 | Day surgery (SDC) | payer MEDICARE, OTHER, MEDICAID | END 2018-01-21 14:27 | disposition home or self-care (01) | LOC: M SDC 11:46 | DX: N20.0 Calculus of kidney (principal); Z53.09 Procedure and treatment not carried out because of other contraindication; Z79.02 Long term (current) use of antithrombotics/antiplatelets ==

== ENCOUNTER 2018-01-29 11:40 | Day surgery (SDC) | payer MEDICARE, OTHER, MEDICAID ==
[~2018-01-29 11:40] MED LIST changes: -ACET50TAOT PO; -ACID1CHW5 PO; -ACIDTAB7 PO; -ALLE180T33 PO; -AMLO5TAB2 PO; -ASPI1TAB PO; -ASPI81TA85 PO; -CALCTAB68 PO; -CLOP75TA2 PO; -DORZ2SOL5 OU; -FERR32TA PO; -FLUOCRE TOP; -GABA-279 PO; +GLYCOPYRROLATE INJ 0.2 MG/ML 2 ML VIAL As Ordered; -HYDR-3713 PO; +KETOROLAC 60 MG/2 ML VIAL (J1885) As Ordered; -LATA5OPD OU; +LIDOCAINE 2% INJ 100 MG/5 ML SDV (FOR ANES.) As Ordered; -LOVE1INJ SC; +LR 1,000 ML IV; +MIDAZOLAM INJ 2 MG/2 ML VIAL (J2250) As Ordered; -MILKSUS PO; -MULTCAP PO; +NEOSTIGMINE 10 MG/10 ML VIAL (J2710) As Ordered; +ONDANSETRON 4MG/2ML VIAL (J2405) As Ordered; -PLAV1TAB2 PO; +PROPOFOL 200 MG/20 ML VIAL As Ordered; -RANI150T PO; +ROCURONIUM BROMIDE 50 MG/5 ML VIAL As Ordered; -STRETAB4 PO; -VALS1TAB47 PO; +dexameTHASONE 4 MG/ML 1ML VIAL (J1100) As Ordered; +fentaNYL 100 MCG/2 ML INJECTION (J3010) As Ordered
[2018-01-29] MEDS ORDERED: ePHEDrine SULFATE 25 MG/5 ML(5MG/ML) SYRINGE As Ordered (14:21)
[2018-01-29] MEDS: CONRAY-60 60% 50ML VIAL (Q9961) As Ordered (14:21)
[2018-01-29] MEDS ORDERED: NORCO, ANEXSIA 5/325MG TABLET (HYDROcodone/ACETAMINOPHEN) PO (16:45)
[2018-01-29] MEDS: ONDANSETRON 4MG/2ML VIAL (J2405) IV (16:45)
[2018-01-29] MEDS ORDERED: ACETAMINOPHEN TAB 650MG DOSE (2X325MG) PO (16:45)
[2018-01-29] MEDS ORDERED: LR 1,000 ML IV (16:45)
[2018-01-29] MEDS ORDERED: fentaNYL 100 MCG/2 ML INJECTION (J3010) IV (16:45)
[2018-02-05 14:14] LABS: COMMENT Note: (.); Ca Ox Monohydrate 85 % (.)
== END 2018-01-29 18:40 | disposition home or self-care (01) ==
LOC: M SDC 18:40
DX: N20.0 Calculus of kidney (principal); I10 Essential (primary) hypertension; E78.00 Pure hypercholesterolemia, unspecified; I73.9 Peripheral vascular disease, unspecified; D64.9 Anemia, unspecified; M12.9 Arthropathy, unspecified; Z88.2 Allergy status to sulfonamides; Z79.899 Other long term (current) drug therapy; Z86.718 Personal history of other venous thrombosis and embolism; Z87.440 Personal history of urinary (tract) infections; Z78.0 Asymptomatic menopausal state
CPT/HCPCS: 52356

== ENCOUNTER → 2018-02-02 | Outpatient (REF) | payer MEDICARE, OTHER, MEDICAID ==
[2018-02-02 09:40] LABS: BASO % 0.3 % (0.0-1.0); EOS # 0.3 10^3/uL (0.0-0.50); EOS % 3.8 % (0.0-3.0); HEMATOCRIT 38.6 % (36.0-47.0); HEMOGLOBIN 12.3 g/dl (12.0-15.5); IMMATURE GRANULOCYTE % 0.3 % (0-3.0); LYMPH # 1.3 10^3/uL (1.5-4.5); LYMPH % 14.9 % (24.0-44.0); MEAN CORPUSCULAR HEMOGLOBIN 30.5 pg (27.0-33.0); MEAN CORPUSCULAR HGB CONC 31.9 g/dl (32.0-36.5); MEAN CORPUSCULAR VOLUME 95.8 fl (80.0-96.0); MONO # 0.7 10^3/uL (0.0-0.8); NEUTROPHILS # 6.5 10^3/uL (1.8-7.7); NEUTROPHILS % 72.7 % (36.0-66.0); PLATELET COUNT, AUTOMATED 320 10^3/uL (150-450); RED BLOOD COUNT 4.03 10^6/uL (4.00-5.40); RED CELL DISTRIBUTION WIDTH 14.3 % (11.5-14.5); WHITE BLOOD COUNT 8.9 10^3/uL (4.0-10.0)
[2018-02-02 10:08] LABS: ANION GAP 10 MEQ/L (8-16); BLOOD UREA NITROGEN 16 MG/DL (7-18); CALCIUM LEVEL 9.3 MG/DL (8.8-10.2); CARBON DIOXIDE LEVEL 29 MEQ/L (21-32); CHLORIDE LEVEL 103 MEQ/L (98-107); CREATININE FOR GFR 0.95 MG/DL (0.55-1.30); GLOMERULAR FILTRATION RATE 59.5 (>32); GLUCOSE, FASTING 91 MG/DL (70-100); POTASSIUM SERUM 3.8 MEQ/L (3.5-5.1); SODIUM LEVEL 142 MEQ/L (136-145)
== END ==
DX: N39.0 Urinary tract infection, site not specified (principal)
CPT/HCPCS: 80048

== ENCOUNTER 2018-02-04 06:22 | Day surgery (SDC) | payer MEDICARE, OTHER, MEDICAID ==
[2018-02-04] MEDS ORDERED: LevoFLOXacin IV 500 MG in APPROPRIATE DILUENT 1 EA IV (06:45)
[2018-02-04] MEDS: LR 1,000 ML IV (06:55)
[2018-02-04] MEDS ORDERED: ONDANSETRON 4MG/2ML VIAL (J2405) As Ordered (08:35)
[2018-02-04] MEDS ORDERED: LIDOCAINE 2% INJ 100 MG/5 ML SDV (FOR ANES.) As Ordered (08:35)
[2018-02-04] MEDS ORDERED: fentaNYL 100 MCG/2 ML INJECTION (J3010) As Ordered (08:35)
[2018-02-04] MEDS ORDERED: PROPOFOL 200 MG/20 ML VIAL As Ordered (08:35)
[2018-02-04] MEDS ORDERED: MIDAZOLAM INJ 2 MG/2 ML VIAL (J2250) As Ordered (08:35)
[2018-02-04] MEDS ORDERED: PERCOCET 5MG/325MG TAB PO (09:45)
== END 2018-02-04 10:25 | disposition home or self-care (01) ==
LOC: M SDC 10:25
DX: N20.0 Calculus of kidney (principal); I10 Essential (primary) hypertension; I25.10 Atherosclerotic heart disease of native coronary artery without angina pectoris; E78.00 Pure hypercholesterolemia, unspecified; I73.9 Peripheral vascular disease, unspecified; D50.9 Iron deficiency anemia, unspecified; M12.9 Arthropathy, unspecified; M81.0 Age-related osteoporosis without current pathological fracture; F41.9 Anxiety disorder, unspecified; F32.9 Major depressive disorder, single episode, unspecified; G62.9 Polyneuropathy, unspecified; Z88.2 Allergy status to sulfonamides; Z79.899 Other long term (current) drug therapy; Z79.01 Long term (current) use of anticoagulants; Z87.81 Personal history of (healed) traumatic fracture; Z85.828 Personal history of other malignant neoplasm of skin; Z78.0 Asymptomatic menopausal state; Z85.42 Personal history of malignant neoplasm of other parts of uterus; Z92.3 Personal history of irradiation; Z87.440 Personal history of urinary (tract) infections; Z90.710 Acquired absence of both cervix and uterus
CPT/HCPCS: 50590

== ENCOUNTER → 2018-02-04 | Outpatient (REF) | payer MEDICARE, OTHER | DX: N20.0 Calculus of kidney (principal); Z01.818 Encounter for other preprocedural examination; N39.0 Urinary tract infection, site not specified | CPT/HCPCS: 87086 ==

== ENCOUNTER → 2018-03-02 | Outpatient (CLI) | payer MEDICARE, OTHER | LOC: M SMT 14:52 | DX: N20.0 Calculus of kidney (principal); Z96.0 Presence of urogenital implants; R93.421 Abnormal radiologic findings on diagnostic imaging of right kidney; R93.422 Abnormal radiologic findings on diagnostic imaging of left kidney | CPT/HCPCS: 74018 ==

== ENCOUNTER → 2018-03-10 | Outpatient (REF) | payer MEDICARE, OTHER, MEDICAID | DX: N39.0 Urinary tract infection, site not specified (principal); N20.0 Calculus of kidney | CPT/HCPCS: 87086 ==

== ENCOUNTER → 2018-03-10 | Outpatient (REF) | payer MEDICARE, OTHER, MEDICAID ==
[2018-03-10 09:41] LABS: HEMATOCRIT 39.9 % (36.0-47.0); HEMOGLOBIN 12.8 g/dl (12.0-15.5); MEAN CORPUSCULAR HEMOGLOBIN 30.5 pg (27.0-33.0); MEAN CORPUSCULAR HGB CONC 32.1 g/dl (32.0-36.5); MEAN CORPUSCULAR VOLUME 95.2 fl (80.0-96.0); PLATELET COUNT, AUTOMATED 433 10^3/uL (150-450); RED BLOOD COUNT 4.19 10^6/uL (4.00-5.40); RED CELL DISTRIBUTION WIDTH 13.4 % (11.5-14.5)
[2018-03-10 09:59] LABS: ANION GAP 9 MEQ/L (8-16); BLOOD UREA NITROGEN 21 MG/DL (7-18); CALCIUM LEVEL 9.8 MG/DL (8.8-10.2); CARBON DIOXIDE LEVEL 31 MEQ/L (21-32); CHLORIDE LEVEL 101 MEQ/L (98-107); CREATININE FOR GFR 0.89 MG/DL (0.55-1.30); GLOMERULAR FILTRATION RATE > 60.0 (>32); GLUCOSE, FASTING 99 MG/DL (70-100); POTASSIUM SERUM 4.2 MEQ/L (3.5-5.1); SODIUM LEVEL 141 MEQ/L (136-145)
== END ==
DX: N20.0 Calculus of kidney (principal)
CPT/HCPCS: 80048

== ENCOUNTER → 2018-03-19 | Outpatient (REF) | payer MEDICARE, OTHER, MEDICAID | LOC: M SMT 17:07 | DX: Z01.812 Encounter for preprocedural laboratory examination (principal); N20.0 Calculus of kidney; N39.0 Urinary tract infection, site not specified | CPT/HCPCS: 87086 ==

== ENCOUNTER → 2018-03-24 | Outpatient (REF) | payer MEDICARE, OTHER, MEDICAID ==
[2018-03-25 09:09] LABS: APPEARANCE, URINE CLOUDY (CLEAR); BACTERIA, URINE AUTO 2+ (NEGATIVE); BILIRUBIN, URINE AUTO NEGATIVE (NEGATIVE); BLOOD, URINE BLOOD 2+ (NEGATIVE); COLOR, URINE YELLOW (YELLOW); GLUCOSE, URINE (UA) AUTO NEGATIVE (NEGATIVE); KETONE, URINE AUTO NEGATIVE (NEGATIVE); LEUKOCYTE ESTERASE, URINE AUTO 3+ (NEGATIVE); NITRITE, URINE AUTO NEGATIVE (NEGATIVE); PROTEIN, URINE AUTO 1+ mg/dL (NEGATIVE); RBC, URINE AUTO 20 /HPF (0-3); SPECIFIC GRAVITY URINE AUTO 1.004 (1.002-1.035); SQUAMOUS EPITHELIAL CELL UR AU 0 /HPF (0-6); UROBILINOGEN, URINE AUTO 0.2 mg/dL (0.0-2.0); WBC, URINE AUTO TNTC /HPF (0-3)
== END ==
DX: R39.89 Other symptoms and signs involving the genitourinary system (principal)
CPT/HCPCS: 81001

== ENCOUNTER 2018-03-26 12:58 | Day surgery (SDC) | payer MEDICARE, OTHER, MEDICAID ==
[2018-03-26] MEDS ORDERED: PROPOFOL 200 MG/20 ML VIAL As Ordered ×2 (14:42)
[2018-03-26] MEDS ORDERED: KETOROLAC 60 MG/2 ML VIAL (J1885) As Ordered ×2 (14:42)
[2018-03-26] MEDS ORDERED: LIDOCAINE 2% INJ 100 MG/5 ML SDV (FOR ANES.) As Ordered ×2 (14:42)
[2018-03-26] MEDS ORDERED: ONDANSETRON 4MG/2ML VIAL (J2405) As Ordered ×2 (14:43)
[2018-03-26] MEDS ORDERED: ROCURONIUM BROMIDE 50 MG/5 ML VIAL As Ordered ×2 (14:43)
[2018-03-26] MEDS ORDERED: fentaNYL 100 MCG/2 ML INJECTION (J3010) As Ordered ×4 (14:43→16:18)
[2018-03-26] MEDS ORDERED: MIDAZOLAM INJ 2 MG/2 ML VIAL (J2250) As Ordered ×2 (14:43)
[2018-03-26] MEDS ORDERED: dexameTHASONE 4 MG/ML 1ML VIAL (J1100) As Ordered ×4 (14:43→16:19)
[2018-03-26] MEDS: CONRAY-60 60% 50ML VIAL (Q9961) As Ordered ×2 (15:21)
[2018-03-26] MEDS: ACETAMINOPHEN TAB 650MG DOSE (2X325MG) PO ×2 (17:35)
[2018-03-26] MEDS ORDERED: ACETAMINOPHEN 325 MG TAB As Ordered ×2 (17:35)
[2018-04-06 15:15] LABS: COMMENT Note: (.); Ca Ox Monohydrate 90 % (.)
== END 2018-03-26 19:15 | disposition home or self-care (01) ==
LOC: M SDC 12:58
DX: N20.0 Calculus of kidney (principal); I10 Essential (primary) hypertension; I25.10 Atherosclerotic heart disease of native coronary artery without angina pectoris; Z88.2 Allergy status to sulfonamides; E78.5 Hyperlipidemia, unspecified; F32.9 Major depressive disorder, single episode, unspecified; F41.9 Anxiety disorder, unspecified; Z79.899 Other long term (current) drug therapy
CPT/HCPCS: 52352

== ENCOUNTER → 2018-04-05 | Outpatient (REF) | payer MEDICARE, OTHER, MEDICAID ==
[2018-04-05 19:42] LABS: AMORPHOUS SEDIMENT MODERATE (NEGATIVE); APPEARANCE, URINE TURBID (CLEAR); BACTERIA, URINE AUTO 2+ (NEGATIVE); BILIRUBIN, URINE AUTO NEGATIVE (NEGATIVE); BLOOD, URINE BLOOD 3+ (NEGATIVE); COLOR, URINE YELLOW (YELLOW); GLUCOSE, URINE (UA) AUTO NEGATIVE (NEGATIVE); KETONE, URINE AUTO NEGATIVE (NEGATIVE); LEUKOCYTE ESTERASE, URINE AUTO 3+ (NEGATIVE); NITRITE, URINE AUTO NEGATIVE (NEGATIVE); PROTEIN, URINE AUTO 2+ mg/dL (NEGATIVE); RBC, URINE AUTO TNTC /HPF (0-3); SPECIFIC GRAVITY URINE AUTO 1.014 (1.002-1.035); SQUAMOUS EPITHELIAL CELL UR AU 0 /HPF (0-6); UROBILINOGEN, URINE AUTO 0.2 mg/dL (0.0-2.0); WBC, URINE AUTO TNTC /HPF (0-3)
== END ==
DX: N39.0 Urinary tract infection, site not specified (principal)
CPT/HCPCS: 81001

== ENCOUNTER → 2018-04-09 | Outpatient (CLI) | payer MEDICARE, OTHER, MEDICAID | LOC: M SMT 10:41 | DX: N20.0 Calculus of kidney (principal); Z97.8 Presence of other specified devices | CPT/HCPCS: 74018 ==

== ENCOUNTER 2018-04-10 09:58 | Emergency (ER) | payer MEDICARE, OTHER, MEDICAID ==
[2018-04-10] MEDS: ADACEL/BOOSTRIX VACCINE (DIPHTH/PERTUSS/ACELL/TETANUS)0.5ML SYR (90715) IM (10:43)
[2018-04-10 10:48] LABS: BASO % 0.3 % (0.0-1.0); EOS # 0.1 10^3/uL (0.0-0.50); EOS % 0.9 % (0.0-3.0); HEMATOCRIT 34.5 % (36.0-47.0); HEMOGLOBIN 11.1 g/dl (12.0-15.5); IMMATURE GRANULOCYTE % 0.6 % (0-3.0); LYMPH # 0.9 10^3/uL (1.5-4.5); LYMPH % 6.9 % (24.0-44.0); MEAN CORPUSCULAR HEMOGLOBIN 29.8 pg (27.0-33.0); MEAN CORPUSCULAR HGB CONC 32.2 g/dl (32.0-36.5); MEAN CORPUSCULAR VOLUME 92.5 fl (80.0-96.0); MONO # 0.9 10^3/uL (0.0-0.8); MONO % 6.9 % (0.0-5.0); NEUTROPHILS # 11.1 10^3/uL (1.8-7.7); NEUTROPHILS % 84.4 % (36.0-66.0); PLATELET COUNT, AUTOMATED 426 10^3/uL (150-450); RED BLOOD COUNT 3.73 10^6/uL (4.00-5.40); RED CELL DISTRIBUTION WIDTH 13.2 % (11.5-14.5); WHITE BLOOD COUNT 13.1 10^3/uL (4.0-10.0)
[2018-04-10 11:23] LABS: ANION GAP 9 MEQ/L (8-16); BLOOD UREA NITROGEN 27 MG/DL (7-18); CALCIUM LEVEL 9.3 MG/DL (8.8-10.2); CARBON DIOXIDE LEVEL 29 MEQ/L (21-32); CHLORIDE LEVEL 102 MEQ/L (98-107); CK-MB VALUE MASS < 1.0 NG/ML (<3.6); CPK CREATINE PHOSPHOKINASE 55 U/L (26-192); CREATININE FOR GFR 1.54 MG/DL (0.55-1.30); GLOMERULAR FILTRATION RATE 34.1 (>32); GLUCOSE, FASTING 119 MG/DL (70-100); MB/CK RELATIVE INDEX 1.82 (< OR =4); POTASSIUM SERUM 4.4 MEQ/L (3.5-5.1); SODIUM LEVEL 140 MEQ/L (136-145); TROPONIN I < 0.02 NG/ML (< 0.10)
[2018-04-10] MEDS: NS 500 ML IV (11:44)
== END 2018-04-10 13:32 | disposition home or self-care (01) ==
LOC: M ED 09:58
DX: S51.012A Laceration without foreign body of left elbow, initial encounter (principal); W19.XXXA Unspecified fall, initial encounter; Y92.129 Unspecified place in nursing home as the place of occurrence of the external cause; S22.089A Unspecified fracture of T11-T12 vertebra, initial encounter for closed fracture; S32.050A Wedge compression fracture of fifth lumbar vertebra, initial encounter for closed fracture; X58.XXXA Exposure to other specified factors, initial encounter; Y92.89 Other specified places as the place of occurrence of the external cause; I10 Essential (primary) hypertension; I73.9 Peripheral vascular disease, unspecified; E78.79 Other disorders of bile acid and cholesterol metabolism; H40.9 Unspecified glaucoma; M19.90 Unspecified osteoarthritis, unspecified site; K21.9 Gastro-esophageal reflux disease without esophagitis; F41.9 Anxiety disorder, unspecified; D50.9 Iron deficiency anemia, unspecified; Z88.2 Allergy status to sulfonamides; Z79.01 Long term (current) use of anticoagulants; Z79.899 Other long term (current) drug therapy

== ENCOUNTER 2018-04-10 16:10 | Inpatient (IN) | payer MEDICARE, OTHER, MEDICAID ==
[2018-04-10] MEDS: NS 500 ML IV (17:30)
[2018-04-10 17:46] LABS: BASO # 0.1 10^3/uL (0.0-0.2); BASO % 0.3 % (0.0-1.0); EOS # 0.1 10^3/uL (0.0-0.50); EOS % 0.3 % (0.0-3.0); HEMATOCRIT 32.6 % (36.0-47.0); HEMOGLOBIN 10.6 g/dl (12.0-15.5); IMMATURE GRANULOCYTE % 0.5 % (0-3.0); LYMPH # 0.8 10^3/uL (1.5-4.5); LYMPH % 5.3 % (24.0-44.0); MEAN CORPUSCULAR HEMOGLOBIN 30.1 pg (27.0-33.0); MEAN CORPUSCULAR HGB CONC 32.5 g/dl (32.0-36.5); MEAN CORPUSCULAR VOLUME 92.6 fl (80.0-96.0); MONO # 1.1 10^3/uL (0.0-0.8); MONO % 7.1 % (0.0-5.0); NEUTROPHILS # 13.3 10^3/uL (1.8-7.7); NEUTROPHILS % 86.5 % (36.0-66.0); PLATELET COUNT, AUTOMATED 407 10^3/uL (150-450); RED BLOOD COUNT 3.52 10^6/uL (4.00-5.40); RED CELL DISTRIBUTION WIDTH 13.4 % (11.5-14.5); WHITE BLOOD COUNT 15.4 10^3/uL (4.0-10.0)
[2018-04-10 18:14] LABS: ALBUMIN/GLOBULIN RATIO 0.88 (1.00-1.93); ALKALINE PHOSPHATASE 53 U/L (45-117); ALT/SGPT 11 U/L (12-78); ANION GAP 9 MEQ/L (8-16); AST/SGOT 15 U/L (7-37); BILIRUBIN,DIRECT 0.3 MG/DL (0.0-0.2); BILIRUBIN,TOTAL 0.9 MG/DL (0.2-1.0); BLOOD UREA NITROGEN 28 MG/DL (7-18); CALCIUM LEVEL 8.4 MG/DL (8.8-10.2); CARBON DIOXIDE LEVEL 25 MEQ/L (21-32); CHLORIDE LEVEL 103 MEQ/L (98-107); CPK CREATINE PHOSPHOKINASE 103 U/L (26-192); CREATININE FOR GFR 1.81 MG/DL (0.55-1.30); GLOMERULAR FILTRATION RATE 28.3 (>32); GLUCOSE, FASTING 120 MG/DL (70-100); MB/CK RELATIVE INDEX 1.55 (< OR =4); POTASSIUM SERUM 3.5 MEQ/L (3.5-5.1); SODIUM LEVEL 137 MEQ/L (136-145); TOTAL PROTEIN 6.4 GM/DL (6.4-8.2); TROPONIN I < 0.02 NG/ML (< 0.10)
[2018-04-10 18:16] LABS: AMORPHOUS SEDIMENT RFX SMALL (NEGATIVE); KETONE, URINE AUTO RFX NEGATIVE (NEGATIVE); LEUKOCYTE ESTERASE UR AUTO RFX 3+ (NEGATIVE); MUCUS, URINE RFX SMALL (NEGATIVE); NITRITE, URINE AUTO RFX NEGATIVE (NEGATIVE); RBC, URINE AUTO RFX 26 /HPF (0-3); SPECIFIC GRAVITY UR AUTO RFX 1.014 (1.002-1.035); SQUAM EPITHELIAL CELL UR AURFX 1 /HPF (0-6); WBC, URINE AUTO RFX TNTC /HPF (0-3)
[2018-04-10] MEDS: cefTRIAXone SOD 1 GM in D5W MINI-BAG PLUS 50 ML IV (19:45)
[2018-04-10] MEDS: NS 1,000 ML IV (20:00)
[2018-04-10] MEDS: ACETAMINOPHEN TAB 650MG DOSE (2X325MG) PO (20:00)
[2018-04-10] MEDS: VANCOMYCIN HCL 750 MG, VIAL MATE ADAPTER 1 EACH in D5W 250 ML IV (20:15)
[2018-04-10] MEDS ORDERED: MOM 30ML SUSPENSION UDC PO (21:00)
[2018-04-10] MEDS: LIDOCAINE 2% 5ML JELLY UROJET As Ordered (21:49)
[2018-04-10] MEDS ORDERED: KETAMINE HCL 200 MG/20 ML VIAL As Ordered (21:53)
[2018-04-10] MEDS ORDERED: MIDAZOLAM INJ 2 MG/2 ML VIAL (J2250) As Ordered (21:53)
[2018-04-10] MEDS ORDERED: PROPOFOL 200 MG/20 ML VIAL As Ordered (21:53)
[2018-04-10] MEDS ORDERED: LIDOCAINE 2% INJ 100 MG/5 ML SDV (FOR ANES.) As Ordered (21:53)
[2018-04-10] MEDS ORDERED: ONDANSETRON 4MG/2ML VIAL (J2405) As Ordered (21:53)
[2018-04-10] MEDS ORDERED: fentaNYL 100 MCG/2 ML INJECTION (J3010) As Ordered (21:53)
[2018-04-10] MEDS ORDERED: ONDANSETRON 4MG/2ML VIAL (J2405) IV (22:30)
[2018-04-10] MEDS ORDERED: PERCOCET 5MG/325MG TAB PO (22:30)
[2018-04-10] MEDS ORDERED: HYDROMORPHONE HCL 0.5 MG/ 0.5 ML SYRINGE (J1170 PER 1) IV (22:30)
[2018-04-10] MEDS: LR 1,000 ML IV (22:30)
[2018-04-10] MEDS ORDERED: fentaNYL 100 MCG/2 ML INJECTION (J3010) IV (22:30)
[2018-04-10] MEDS ORDERED: VANCOMYCIN INTERMITTENT/PULSE DOSING BY CLINICAL PHARMACIST PER DOSING PROTOCOL XX (23:00)
[2018-04-11] MEDS: ACETAMINOPHEN TAB 650MG DOSE (2X325MG) PO ×2 (00:26→16:34)
[2018-04-11] MEDS: GABAPENTIN 100 MG CAP PO ×2 (00:26→20:08)
[2018-04-11] MEDS: FAMOTIDINE 20 MG TAB PO ×3 (00:26→20:08)
[2018-04-11] MEDS: NS 1,000 ML IV (00:27)
[2018-04-11] MEDS: VITAMIN D 1,000 INTERNATIONAL UNITS TABLET PO ×2 (00:27→20:08)
[2018-04-11] MEDS: amLODIPine 5 MG TAB PO ×2 (00:28→08:18)
[2018-04-11] MEDS: LATANOPROST 0.005% OPHTH SOLN 2.5 ML OU ×2 (01:53→20:08)
[2018-04-11 05:16] LABS: BASO % 0.3 % (0.0-1.0); EOS # 0.3 10^3/uL (0.0-0.50); EOS % 1.8 % (0.0-3.0); HEMOGLOBIN 9.5 g/dl (12.0-15.5); IMMATURE GRANULOCYTE % 0.7 % (0-3.0); LYMPH # 1.3 10^3/uL (1.5-4.5); LYMPH % 8.8 % (24.0-44.0); MEAN CORPUSCULAR HEMOGLOBIN 29.8 pg (27.0-33.0); MEAN CORPUSCULAR HGB CONC 31.7 g/dl (32.0-36.5); MONO # 1.1 10^3/uL (0.0-0.8); MONO % 7.3 % (0.0-5.0); NEUTROPHILS # 12.3 10^3/uL (1.8-7.7); NEUTROPHILS % 81.1 % (36.0-66.0); PLATELET COUNT, AUTOMATED 310 10^3/uL (150-450); RED BLOOD COUNT 3.19 10^6/uL (4.00-5.40); RED CELL DISTRIBUTION WIDTH 13.4 % (11.5-14.5); WHITE BLOOD COUNT 15.2 10^3/uL (4.0-10.0)
[2018-04-11 05:44] LABS: VANCOMYCIN RANDOM 8.5 UG/ML
[2018-04-11 05:54] LABS: ALBUMIN 2.2 GM/DL (3.2-5.2); ALBUMIN/GLOBULIN RATIO 0.65 (1.00-1.93); ALKALINE PHOSPHATASE 41 U/L (45-117); ALT/SGPT 12 U/L (12-78); ANION GAP 7 MEQ/L (8-16); AST/SGOT 16 U/L (7-37); BILIRUBIN,TOTAL 0.7 MG/DL (0.2-1.0); BLOOD UREA NITROGEN 23 MG/DL (7-18); CALCIUM LEVEL 7.7 MG/DL (8.8-10.2); CARBON DIOXIDE LEVEL 25 MEQ/L (21-32); CHLORIDE LEVEL 109 MEQ/L (98-107); GLUCOSE, FASTING 108 MG/DL (70-100); POTASSIUM SERUM 3.2 MEQ/L (3.5-5.1); SODIUM LEVEL 141 MEQ/L (136-145); TOTAL PROTEIN 5.6 GM/DL (6.4-8.2)
[2018-04-11] MEDS: VANCOMYCIN HCL 750 MG, VIAL MATE ADAPTER 1 EACH in D5W 250 ML IV (06:04)
[2018-04-11] MEDS: POTASSIUM CHLORIDE 10 MEQ SR TABLET PO (06:43)
[2018-04-11] MEDS: KCL 40MEQ in NS 1000ML 1,000 ML IV (08:15)
[2018-04-11] MEDS: FEXOFENADINE 60 MG TAB PO (08:16)
[2018-04-11] MEDS: CLOPIDOGREL 75 MG TAB PO (08:16)
[2018-04-11] MEDS: FERROUS GLUCONATE 324 MG TAB PO (08:16)
[2018-04-11] MEDS: cefTRIAXone SOD 1 GM in D5W MINI-BAG PLUS 50 ML IV (20:08)
[2018-04-12 05:30] LABS: BASO % 0.3 % (0.0-1.0); EOS # 0.5 10^3/uL (0.0-0.50); EOS % 3.8 % (0.0-3.0); HEMATOCRIT 30.8 % (36.0-47.0); HEMOGLOBIN 9.7 g/dl (12.0-15.5); IMMATURE GRANULOCYTE % 0.6 % (0-3.0); LYMPH # 1.2 10^3/uL (1.5-4.5); LYMPH % 9.9 % (24.0-44.0); MEAN CORPUSCULAR HEMOGLOBIN 29.7 pg (27.0-33.0); MEAN CORPUSCULAR HGB CONC 31.5 g/dl (32.0-36.5); MEAN CORPUSCULAR VOLUME 94.2 fl (80.0-96.0); MONO # 0.8 10^3/uL (0.0-0.8); MONO % 6.7 % (0.0-5.0); NEUTROPHILS # 9.3 10^3/uL (1.8-7.7); NEUTROPHILS % 78.7 % (36.0-66.0); PLATELET COUNT, AUTOMATED 334 10^3/uL (150-450); RED BLOOD COUNT 3.27 10^6/uL (4.00-5.40); RED CELL DISTRIBUTION WIDTH 13.7 % (11.5-14.5); WHITE BLOOD COUNT 11.8 10^3/uL (4.0-10.0)
[2018-04-12] MEDS: SLF 3 ML SYR IV ×3 (05:38→20:26)
[2018-04-12 05:42] LABS: ALBUMIN 2.4 GM/DL (3.2-5.2); ALBUMIN/GLOBULIN RATIO 0.63 (1.00-1.93); ALKALINE PHOSPHATASE 50 U/L (45-117); ALT/SGPT 10 U/L (12-78); ANION GAP 8 MEQ/L (8-16); AST/SGOT 15 U/L (7-37); BILIRUBIN,TOTAL 0.4 MG/DL (0.2-1.0); BLOOD UREA NITROGEN 17 MG/DL (7-18); CALCIUM LEVEL 8.1 MG/DL (8.8-10.2); CARBON DIOXIDE LEVEL 25 MEQ/L (21-32); CHLORIDE LEVEL 110 MEQ/L (98-107); CREATININE FOR GFR 0.95 MG/DL (0.55-1.30); GLOMERULAR FILTRATION RATE 59.5 (>32); GLUCOSE, FASTING 101 MG/DL (70-100); SODIUM LEVEL 143 MEQ/L (136-145); TOTAL PROTEIN 6.2 GM/DL (6.4-8.2); VANCOMYCIN RANDOM 10.2 UG/ML
[2018-04-12] MEDS: VANCOMYCIN HCL 1,000 MG, VIAL MATE ADAPTER 1 EACH in D5W 250 ML IV (06:10)
[2018-04-12] MEDS: FEXOFENADINE 60 MG TAB PO (08:32)
[2018-04-12] MEDS: CLOPIDOGREL 75 MG TAB PO (08:32)
[2018-04-12] MEDS: FERROUS GLUCONATE 324 MG TAB PO (08:33)
[2018-04-12] MEDS: amLODIPine 5 MG TAB PO (08:34)
[2018-04-12] MEDS: FAMOTIDINE 20 MG TAB PO ×2 (08:34→20:25)
[2018-04-12] MEDS: LATANOPROST 0.005% OPHTH SOLN 2.5 ML OU (20:25)
[2018-04-12] MEDS: GABAPENTIN 100 MG CAP PO (20:25)
[2018-04-12] MEDS: VITAMIN D 1,000 INTERNATIONAL UNITS TABLET PO (20:26)
[2018-04-12] MEDS: cefTRIAXone SOD 1 GM in D5W MINI-BAG PLUS 50 ML IV (20:26)
[2018-04-12] MEDS: ACETAMINOPHEN TAB 650MG DOSE (2X325MG) PO (20:27)
[2018-04-13] MEDS: VANCOMYCIN HCL 1,000 MG, VIAL MATE ADAPTER 1 EACH in D5W 250 ML IV (05:48)
[2018-04-13] MEDS: SLF 3 ML SYR IV ×3 (05:49→21:27)
[2018-04-13] MEDS: amLODIPine 5 MG TAB PO (09:25)
[2018-04-13] MEDS: FERROUS GLUCONATE 324 MG TAB PO (09:25)
[2018-04-13] MEDS: CLOPIDOGREL 75 MG TAB PO (09:25)
[2018-04-13] MEDS: FAMOTIDINE 20 MG TAB PO ×2 (09:25→21:27)
[2018-04-13] MEDS: FEXOFENADINE 60 MG TAB PO (09:26)
[2018-04-13 09:55] LABS: ANION GAP 7 MEQ/L (8-16); BLOOD UREA NITROGEN 17 MG/DL (7-18); CALCIUM LEVEL 8.1 MG/DL (8.8-10.2); CARBON DIOXIDE LEVEL 26 MEQ/L (21-32); CHLORIDE LEVEL 106 MEQ/L (98-107); CREATININE FOR GFR 1.29 MG/DL (0.55-1.30); GLOMERULAR FILTRATION RATE 41.8 (>32); GLUCOSE, FASTING 123 MG/DL (70-100); POTASSIUM SERUM 4.1 MEQ/L (3.5-5.1); SODIUM LEVEL 139 MEQ/L (136-145)
[2018-04-13] MEDS: ACETAMINOPHEN TAB 650MG DOSE (2X325MG) PO ×2 (13:10→21:27)
[2018-04-13] MEDS: VITAMIN D 1,000 INTERNATIONAL UNITS TABLET PO (21:27)
[2018-04-13] MEDS: LATANOPROST 0.005% OPHTH SOLN 2.5 ML OU (21:27)
[2018-04-13] MEDS: GABAPENTIN 100 MG CAP PO (21:27)
[2018-04-13] MEDS: cefTRIAXone SOD 1 GM in D5W MINI-BAG PLUS 50 ML IV (21:27)
[2018-04-14] MEDS: ACETAMINOPHEN TAB 650MG DOSE (2X325MG) PO ×2 (04:38→13:52)
[2018-04-14 06:01] LABS: VANCOMYCIN LEVEL TROUGH 19.5 UG/ML (10.0-20.0)
[2018-04-14] MEDS: VANCOMYCIN HCL 1,000 MG, VIAL MATE ADAPTER 1 EACH in D5W 250 ML IV (06:15)
[2018-04-14] MEDS: SLF 3 ML SYR IV ×3 (06:15→20:38)
[2018-04-14] MEDS: FEXOFENADINE 60 MG TAB PO (08:40)
[2018-04-14] MEDS: amLODIPine 5 MG TAB PO (08:41)
[2018-04-14] MEDS: CLOPIDOGREL 75 MG TAB PO (08:41)
[2018-04-14] MEDS: FAMOTIDINE 20 MG TAB PO ×2 (08:41→20:38)
[2018-04-14] MEDS: FERROUS GLUCONATE 324 MG TAB PO (08:41)
[2018-04-14 09:24] LABS: ANION GAP 6 MEQ/L (8-16); BLOOD UREA NITROGEN 20 MG/DL (7-18); CALCIUM LEVEL 8.1 MG/DL (8.8-10.2); CARBON DIOXIDE LEVEL 26 MEQ/L (21-32); CHLORIDE LEVEL 107 MEQ/L (98-107); CREATININE FOR GFR 1.91 MG/DL (0.55-1.30); GLOMERULAR FILTRATION RATE 26.6 (>32); GLUCOSE, FASTING 112 MG/DL (70-100); POTASSIUM SERUM 4.2 MEQ/L (3.5-5.1); SODIUM LEVEL 139 MEQ/L (136-145)
[2018-04-14] MEDS: IBUPROFEN 600 MG TAB PO (14:52)
[2018-04-14] MEDS: VITAMIN D 1,000 INTERNATIONAL UNITS TABLET PO (20:37)
[2018-04-14] MEDS: LATANOPROST 0.005% OPHTH SOLN 2.5 ML OU (20:37)
[2018-04-14] MEDS: GABAPENTIN 100 MG CAP PO (20:37)
[2018-04-14] MEDS: cefTRIAXone SOD 1 GM in D5W MINI-BAG PLUS 50 ML IV (20:38)
[2018-04-15] MEDS: SLF 3 ML SYR IV ×3 (06:08→20:43)
[2018-04-15 07:37] LABS: BASO # 0.1 10^3/uL (0.0-0.2); BASO % 0.4 % (0.0-1.0); EOS # 0.6 10^3/uL (0.0-0.50); EOS % 4.8 % (0.0-3.0); HEMATOCRIT 31.5 % (36.0-47.0); HEMOGLOBIN 10.1 g/dl (12.0-15.5); IMMATURE GRANULOCYTE % 0.8 % (0-3.0); LYMPH # 1.1 10^3/uL (1.5-4.5); LYMPH % 8.1 % (24.0-44.0); MEAN CORPUSCULAR HEMOGLOBIN 29.7 pg (27.0-33.0); MEAN CORPUSCULAR HGB CONC 32.1 g/dl (32.0-36.5); MEAN CORPUSCULAR VOLUME 92.6 fl (80.0-96.0); MONO # 0.9 10^3/uL (0.0-0.8); MONO % 6.4 % (0.0-5.0); NEUTROPHILS # 10.7 10^3/uL (1.8-7.7); NEUTROPHILS % 79.5 % (36.0-66.0); PLATELET COUNT, AUTOMATED 354 10^3/uL (150-450); WHITE BLOOD COUNT 13.5 10^3/uL (4.0-10.0)
[2018-04-15 07:58] LABS: ALBUMIN 2.3 GM/DL (3.2-5.2); ALBUMIN/GLOBULIN RATIO 0.51 (1.00-1.93); ALKALINE PHOSPHATASE 87 U/L (45-117); ALT/SGPT 47 U/L (12-78); ANION GAP 8 MEQ/L (8-16); AST/SGOT 61 U/L (7-37); BILIRUBIN,TOTAL 0.4 MG/DL (0.2-1.0); BLOOD UREA NITROGEN 26 MG/DL (7-18); CALCIUM LEVEL 8.2 MG/DL (8.8-10.2); CARBON DIOXIDE LEVEL 24 MEQ/L (21-32); CHLORIDE LEVEL 107 MEQ/L (98-107); CREATININE FOR GFR 2.26 MG/DL (0.55-1.30); GLOMERULAR FILTRATION RATE 21.9 (>32); GLUCOSE, FASTING 92 MG/DL (70-100); POTASSIUM SERUM 3.9 MEQ/L (3.5-5.1); SODIUM LEVEL 139 MEQ/L (136-145); TOTAL PROTEIN 6.8 GM/DL (6.4-8.2)
[2018-04-15] MEDS: FERROUS GLUCONATE 324 MG TAB PO (08:00)
[2018-04-15] MEDS: CLOPIDOGREL 75 MG TAB PO (08:00)
[2018-04-15] MEDS: amLODIPine 5 MG TAB PO (08:00)
[2018-04-15] MEDS: FEXOFENADINE 60 MG TAB PO (08:00)
[2018-04-15] MEDS: FAMOTIDINE 20 MG TAB PO ×2 (08:00→20:58)
[2018-04-15] MEDS ORDERED: VANCOMYCIN HCL 750 MG, VIAL MATE ADAPTER 1 EACH in D5W 250 ML IV (09:00)
[2018-04-15] MEDS: NS 1,000 ML IV ×2 (11:56→20:57)
[2018-04-15] MEDS: ACETAMINOPHEN TAB 650MG DOSE (2X325MG) PO (18:36)
[2018-04-15] MEDS: cefTRIAXone SOD 1 GM in D5W MINI-BAG PLUS 50 ML IV (20:57)
[2018-04-15] MEDS: LATANOPROST 0.005% OPHTH SOLN 2.5 ML OU (20:57)
[2018-04-15] MEDS: GABAPENTIN 100 MG CAP PO (20:58)
[2018-04-15] MEDS: VITAMIN D 1,000 INTERNATIONAL UNITS TABLET PO (20:58)
[2018-04-16] MEDS: SLF 3 ML SYR IV ×3 (01:37→22:07)
[2018-04-16] MEDS: FAMOTIDINE 20 MG TAB PO ×2 (08:13→20:05)
[2018-04-16] MEDS: FERROUS GLUCONATE 324 MG TAB PO (08:14)
[2018-04-16] MEDS: FEXOFENADINE 60 MG TAB PO (08:14)
[2018-04-16] MEDS: amLODIPine 5 MG TAB PO (08:14)
[2018-04-16] MEDS: CLOPIDOGREL 75 MG TAB PO (08:14)
[2018-04-16 09:49] LABS: BASO % 0.4 % (0.0-1.0); EOS # 0.4 10^3/uL (0.0-0.50); EOS % 3.9 % (0.0-3.0); HEMOGLOBIN 9.6 g/dl (12.0-15.5); IMMATURE GRANULOCYTE % 1.3 % (0-3.0); LYMPH % 9.1 % (24.0-44.0); MEAN CORPUSCULAR HEMOGLOBIN 29.7 pg (27.0-33.0); MEAN CORPUSCULAR VOLUME 92.9 fl (80.0-96.0); MONO # 0.8 10^3/uL (0.0-0.8); MONO % 7.6 % (0.0-5.0); NEUTROPHILS # 8.4 10^3/uL (1.8-7.7); NEUTROPHILS % 77.7 % (36.0-66.0); PLATELET COUNT, AUTOMATED 398 10^3/uL (150-450); RED BLOOD COUNT 3.23 10^6/uL (4.00-5.40); RED CELL DISTRIBUTION WIDTH 13.9 % (11.5-14.5); WHITE BLOOD COUNT 10.8 10^3/uL (4.0-10.0)
[2018-04-16 10:14] LABS: ANION GAP 9 MEQ/L (8-16); BLOOD UREA NITROGEN 22 MG/DL (7-18); CALCIUM LEVEL 7.8 MG/DL (8.8-10.2); CARBON DIOXIDE LEVEL 22 MEQ/L (21-32); CHLORIDE LEVEL 110 MEQ/L (98-107); GLOMERULAR FILTRATION RATE 26.7 (>32); GLUCOSE, FASTING 112 MG/DL (70-100); SODIUM LEVEL 141 MEQ/L (136-145)
[2018-04-16] MEDS: ACETAMINOPHEN TAB 650MG DOSE (2X325MG) PO ×2 (13:18→20:52)
[2018-04-16] MEDS: VITAMIN D 1,000 INTERNATIONAL UNITS TABLET PO (20:06)
[2018-04-16] MEDS: GABAPENTIN 100 MG CAP PO (20:06)
[2018-04-16] MEDS: LATANOPROST 0.005% OPHTH SOLN 2.5 ML OU (20:06)
[2018-04-16] MEDS: cefTRIAXone SOD 1 GM in D5W MINI-BAG PLUS 50 ML IV (20:06)
[2018-04-17] MEDS: SLF 3 ML SYR IV ×3 (05:27→20:56)
[2018-04-17 06:18] LABS: BASO # 0.1 10^3/uL (0.0-0.2); BASO % 0.6 % (0.0-1.0); EOS # 0.5 10^3/uL (0.0-0.50); EOS % 5.8 % (0.0-3.0); HEMATOCRIT 29.2 % (36.0-47.0); HEMOGLOBIN 9.4 g/dl (12.0-15.5); MEAN CORPUSCULAR HEMOGLOBIN 29.3 pg (27.0-33.0); MEAN CORPUSCULAR HGB CONC 32.2 g/dl (32.0-36.5); MONO # 0.7 10^3/uL (0.0-0.8); NEUTROPHILS # 6.1 10^3/uL (1.8-7.7); NEUTROPHILS % 72.6 % (36.0-66.0); PLATELET COUNT, AUTOMATED 429 10^3/uL (150-450); RED BLOOD COUNT 3.21 10^6/uL (4.00-5.40); RED CELL DISTRIBUTION WIDTH 14.1 % (11.5-14.5); WHITE BLOOD COUNT 8.4 10^3/uL (4.0-10.0)
[2018-04-17 06:36] LABS: ANION GAP 8 MEQ/L (8-16); BLOOD UREA NITROGEN 20 MG/DL (7-18); CALCIUM LEVEL 8.2 MG/DL (8.8-10.2); CARBON DIOXIDE LEVEL 25 MEQ/L (21-32); CHLORIDE LEVEL 112 MEQ/L (98-107); CREATININE FOR GFR 1.44 MG/DL (0.55-1.30); GLOMERULAR FILTRATION RATE 36.8 (>32); GLUCOSE, FASTING 92 MG/DL (70-100); POTASSIUM SERUM 3.8 MEQ/L (3.5-5.1); SODIUM LEVEL 145 MEQ/L (136-145)
[2018-04-17] MEDS: amLODIPine 5 MG TAB PO ×2 (08:23→20:56)
[2018-04-17] MEDS: CLOPIDOGREL 75 MG TAB PO (08:23)
[2018-04-17] MEDS: FAMOTIDINE 20 MG TAB PO ×2 (08:23→20:55)
[2018-04-17] MEDS: FEXOFENADINE 60 MG TAB PO (08:23)
[2018-04-17] MEDS: FERROUS GLUCONATE 324 MG TAB PO (08:23)
[2018-04-17] MEDS: VITAMIN D 1,000 INTERNATIONAL UNITS TABLET PO (20:54)
[2018-04-17] MEDS: GABAPENTIN 100 MG CAP PO (20:54)
[2018-04-17] MEDS: LATANOPROST 0.005% OPHTH SOLN 2.5 ML OU (20:56)
[2018-04-18] MEDS: SLF 3 ML SYR IV ×3 (05:06→20:28)
[2018-04-18 05:56] LABS: BASO % 0.5 % (0.0-1.0); EOS # 0.5 10^3/uL (0.0-0.50); EOS % 6.4 % (0.0-3.0); HEMATOCRIT 28.6 % (36.0-47.0); HEMOGLOBIN 9.2 g/dl (12.0-15.5); IMMATURE GRANULOCYTE % 1.3 % (0-3.0); LYMPH # 1.3 10^3/uL (1.5-4.5); LYMPH % 15.1 % (24.0-44.0); MEAN CORPUSCULAR HEMOGLOBIN 29.6 pg (27.0-33.0); MEAN CORPUSCULAR HGB CONC 32.2 g/dl (32.0-36.5); MONO # 0.7 10^3/uL (0.0-0.8); MONO % 7.8 % (0.0-5.0); NEUTROPHILS # 5.8 10^3/uL (1.8-7.7); NEUTROPHILS % 68.9 % (36.0-66.0); PLATELET COUNT, AUTOMATED 463 10^3/uL (150-450); RED BLOOD COUNT 3.11 10^6/uL (4.00-5.40); RED CELL DISTRIBUTION WIDTH 14.3 % (11.5-14.5); WHITE BLOOD COUNT 8.3 10^3/uL (4.0-10.0)
[2018-04-18 06:10] LABS: ANION GAP 7 MEQ/L (8-16); BLOOD UREA NITROGEN 16 MG/DL (7-18); C REACTIVE PROTEIN QUANTITATIV 6.84 MG/DL (0.00-0.30); CALCIUM LEVEL 8.1 MG/DL (8.8-10.2); CARBON DIOXIDE LEVEL 26 MEQ/L (21-32); CHLORIDE LEVEL 112 MEQ/L (98-107); CREATININE FOR GFR 1.38 MG/DL (0.55-1.30); GLOMERULAR FILTRATION RATE 38.7 (>32); GLUCOSE, FASTING 92 MG/DL (70-100); POTASSIUM SERUM 3.9 MEQ/L (3.5-5.1); SODIUM LEVEL 145 MEQ/L (136-145)
[2018-04-18] MEDS: amLODIPine 5 MG TAB PO ×2 (08:10→20:28)
[2018-04-18] MEDS: CLOPIDOGREL 75 MG TAB PO (08:10)
[2018-04-18] MEDS: FEXOFENADINE 60 MG TAB PO (08:10)
[2018-04-18] MEDS: FERROUS GLUCONATE 324 MG TAB PO (08:10)
[2018-04-18] MEDS: FAMOTIDINE 20 MG TAB PO ×2 (08:10→20:28)
[2018-04-18] MEDS: ACETAMINOPHEN TAB 650MG DOSE (2X325MG) PO ×2 (15:07→20:28)
[2018-04-18] MEDS: VITAMIN D 1,000 INTERNATIONAL UNITS TABLET PO (20:27)
[2018-04-18] MEDS: GABAPENTIN 100 MG CAP PO (20:27)
[2018-04-18] MEDS: LATANOPROST 0.005% OPHTH SOLN 2.5 ML OU (20:34)
[2018-04-19] MEDS: SLF 3 ML SYR IV ×3 (05:25→20:14)
[2018-04-19 05:59] LABS: BASO # 0.1 10^3/uL (0.0-0.2); BASO % 0.4 % (0.0-1.0); EOS # 0.4 10^3/uL (0.0-0.50); EOS % 3.2 % (0.0-3.0); HEMATOCRIT 29.5 % (36.0-47.0); HEMOGLOBIN 9.5 g/dl (12.0-15.5); IMMATURE GRANULOCYTE % 0.9 % (0-3.0); LYMPH # 1.3 10^3/uL (1.5-4.5); LYMPH % 9.9 % (24.0-44.0); MEAN CORPUSCULAR HEMOGLOBIN 29.2 pg (27.0-33.0); MEAN CORPUSCULAR HGB CONC 32.2 g/dl (32.0-36.5); MEAN CORPUSCULAR VOLUME 90.8 fl (80.0-96.0); MONO # 0.9 10^3/uL (0.0-0.8); MONO % 6.9 % (0.0-5.0); NEUTROPHILS % 78.7 % (36.0-66.0); PLATELET COUNT, AUTOMATED 478 10^3/uL (150-450); RED BLOOD COUNT 3.25 10^6/uL (4.00-5.40); RED CELL DISTRIBUTION WIDTH 14.1 % (11.5-14.5); WHITE BLOOD COUNT 12.7 10^3/uL (4.0-10.0)
[2018-04-19 07:12] LABS: ANION GAP 6 MEQ/L (8-16); BLOOD UREA NITROGEN 18 MG/DL (7-18); CALCIUM LEVEL 8.3 MG/DL (8.8-10.2); CARBON DIOXIDE LEVEL 27 MEQ/L (21-32); CHLORIDE LEVEL 110 MEQ/L (98-107); CREATININE FOR GFR 1.76 MG/DL (0.55-1.30); GLOMERULAR FILTRATION RATE 29.2 (>32); GLUCOSE, FASTING 99 MG/DL (70-100); SODIUM LEVEL 143 MEQ/L (136-145)
[2018-04-19] MEDS: FEXOFENADINE 60 MG TAB PO (10:29)
[2018-04-19] MEDS: FERROUS GLUCONATE 324 MG TAB PO (10:29)
[2018-04-19] MEDS: FAMOTIDINE 20 MG TAB PO ×2 (10:30→20:12)
[2018-04-19] MEDS: amLODIPine 5 MG TAB PO ×2 (10:30→20:13)
[2018-04-19] MEDS: CLOPIDOGREL 75 MG TAB PO (10:30)
[2018-04-19] MEDS: NS 1,000 ML IV (10:36)
[2018-04-19 17:03] LABS: C REACTIVE PROTEIN QUANTITATIV 7.43 MG/DL (0.00-0.30)
[2018-04-19] MEDS: cefTRIAXone SOD 1 GM in D5W MINI-BAG PLUS 50 ML IV (17:16)
[2018-04-19 17:51] LABS: AMORPHOUS SEDIMENT SMALL (NEGATIVE); APPEARANCE, URINE CLOUDY (CLEAR); BACTERIA, URINE AUTO 1+ (NEGATIVE); BILIRUBIN, URINE AUTO NEGATIVE (NEGATIVE); BLOOD, URINE BLOOD 1+ (NEGATIVE); COLOR, URINE YELLOW (YELLOW); GLUCOSE, URINE (UA) AUTO NEGATIVE (NEGATIVE); KETONE, URINE AUTO NEGATIVE (NEGATIVE); LEUKOCYTE ESTERASE, URINE AUTO 3+ (NEGATIVE); NITRITE, URINE AUTO NEGATIVE (NEGATIVE); PROTEIN, URINE AUTO NEGATIVE (NEGATIVE); RBC, URINE AUTO 16 /HPF (0-3); SPECIFIC GRAVITY URINE AUTO 1.009 (1.002-1.035); SQUAMOUS EPITHELIAL CELL UR AU 0 /HPF (0-6); UROBILINOGEN, URINE AUTO 0.2 mg/dL (0.0-2.0); WBC, URINE AUTO TNTC /HPF (0-3)
[2018-04-19] MEDS: ACETAMINOPHEN TAB 650MG DOSE (2X325MG) PO (17:59)
[2018-04-19 19:55] LABS: ERYTHROCYTE SEDIMENTATION RATE > 140 mm/hr (0-42)
[2018-04-19] MEDS: GABAPENTIN 100 MG CAP PO (20:12)
[2018-04-19] MEDS: VITAMIN D 1,000 INTERNATIONAL UNITS TABLET PO (20:12)
[2018-04-19] MEDS: LATANOPROST 0.005% OPHTH SOLN 2.5 ML OU (20:13)
[2018-04-20] MEDS: SLF 3 ML SYR IV ×3 (05:23→20:03)
[2018-04-20 05:48] LABS: BASO # 0.1 10^3/uL (0.0-0.2); BASO % 0.6 % (0.0-1.0); EOS # 0.6 10^3/uL (0.0-0.50); EOS % 6.7 % (0.0-3.0); HEMATOCRIT 29.7 % (36.0-47.0); HEMOGLOBIN 9.5 g/dl (12.0-15.5); IMMATURE GRANULOCYTE % 1.5 % (0-3.0); LYMPH # 1.1 10^3/uL (1.5-4.5); LYMPH % 12.3 % (24.0-44.0); MEAN CORPUSCULAR HEMOGLOBIN 29.7 pg (27.0-33.0); MEAN CORPUSCULAR VOLUME 92.8 fl (80.0-96.0); MONO # 0.6 10^3/uL (0.0-0.8); MONO % 6.4 % (0.0-5.0); NEUTROPHILS # 6.5 10^3/uL (1.8-7.7); NEUTROPHILS % 72.5 % (36.0-66.0); PLATELET COUNT, AUTOMATED 439 10^3/uL (150-450); RED CELL DISTRIBUTION WIDTH 14.2 % (11.5-14.5); WHITE BLOOD COUNT 8.9 10^3/uL (4.0-10.0)
[2018-04-20 06:12] LABS: ANION GAP 7 MEQ/L (8-16); BLOOD UREA NITROGEN 16 MG/DL (7-18); CALCIUM LEVEL 8.1 MG/DL (8.8-10.2); CARBON DIOXIDE LEVEL 25 MEQ/L (21-32); CHLORIDE LEVEL 112 MEQ/L (98-107); CREATININE FOR GFR 1.22 MG/DL (0.55-1.30); GLOMERULAR FILTRATION RATE 44.6 (>32); GLUCOSE, FASTING 91 MG/DL (70-100); POTASSIUM SERUM 3.7 MEQ/L (3.5-5.1); SODIUM LEVEL 144 MEQ/L (136-145)
[2018-04-20 10:37] LABS: NT-PRO BNP 2570 PG/ML (<450)
[2018-04-20] MEDS: CLOPIDOGREL 75 MG TAB PO (10:51)
[2018-04-20] MEDS: FEXOFENADINE 60 MG TAB PO (10:51)
[2018-04-20] MEDS: FAMOTIDINE 20 MG TAB PO ×2 (10:52→20:03)
[2018-04-20] MEDS: FERROUS GLUCONATE 324 MG TAB PO (10:52)
[2018-04-20] MEDS: amLODIPine 5 MG TAB PO ×2 (10:53→20:03)
[2018-04-20 12:10] LABS: ERYTHROCYTE SEDIMENTATION RATE 73 mm/hr (0-42)
[2018-04-20] MEDS: ENOXAPARIN 30 MG/0.3 ML SYR (J1650) SC (12:35)
[2018-04-20] MEDS: FUROSEMIDE 40 MG/4 ML VIAL (J1940) IV ×2 (15:17→20:02)
[2018-04-20] MEDS: cefTRIAXone SOD 1 GM in D5W MINI-BAG PLUS 50 ML IV (15:59)
[2018-04-20] MEDS: GABAPENTIN 100 MG CAP PO (20:02)
[2018-04-20] MEDS: VITAMIN D 1,000 INTERNATIONAL UNITS TABLET PO (20:02)
[2018-04-20] MEDS: LATANOPROST 0.005% OPHTH SOLN 2.5 ML OU (20:03)
[2018-04-20 22:51] LABS: ANION GAP 9 MEQ/L (8-16); BLOOD UREA NITROGEN 17 MG/DL (7-18); CALCIUM LEVEL 7.9 MG/DL (8.8-10.2); CARBON DIOXIDE LEVEL 25 MEQ/L (21-32); CHLORIDE LEVEL 108 MEQ/L (98-107); CREATININE FOR GFR 1.49 MG/DL (0.55-1.30); GLOMERULAR FILTRATION RATE 35.4 (>32); GLUCOSE, FASTING 103 MG/DL (70-100); POTASSIUM SERUM 3.6 MEQ/L (3.5-5.1); SODIUM LEVEL 142 MEQ/L (136-145)
[2018-04-21] MEDS: SLF 3 ML SYR IV ×3 (04:56→20:29)
[2018-04-21 06:17] LABS: BASO # 0.1 10^3/uL (0.0-0.2); BASO % 0.6 % (0.0-1.0); EOS # 0.6 10^3/uL (0.0-0.50); EOS % 6.6 % (0.0-3.0); HEMATOCRIT 29.9 % (36.0-47.0); HEMOGLOBIN 9.5 g/dl (12.0-15.5); IMMATURE GRANULOCYTE % 1.1 % (0-3.0); LYMPH # 1.1 10^3/uL (1.5-4.5); LYMPH % 13.2 % (24.0-44.0); MEAN CORPUSCULAR HEMOGLOBIN 29.1 pg (27.0-33.0); MEAN CORPUSCULAR HGB CONC 31.8 g/dl (32.0-36.5); MEAN CORPUSCULAR VOLUME 91.4 fl (80.0-96.0); MONO # 0.6 10^3/uL (0.0-0.8); MONO % 6.7 % (0.0-5.0); NEUTROPHILS % 71.8 % (36.0-66.0); PLATELET COUNT, AUTOMATED 501 10^3/uL (150-450); RED BLOOD COUNT 3.27 10^6/uL (4.00-5.40); RED CELL DISTRIBUTION WIDTH 14.1 % (11.5-14.5); WHITE BLOOD COUNT 8.3 10^3/uL (4.0-10.0)
[2018-04-21 06:39] LABS: ANION GAP 8 MEQ/L (8-16); BLOOD UREA NITROGEN 16 MG/DL (7-18); CALCIUM LEVEL 8.1 MG/DL (8.8-10.2); CARBON DIOXIDE LEVEL 27 MEQ/L (21-32); CHLORIDE LEVEL 108 MEQ/L (98-107); CREATININE FOR GFR 1.41 MG/DL (0.55-1.30); GLOMERULAR FILTRATION RATE 37.7 (>32); GLUCOSE, FASTING 89 MG/DL (70-100); POTASSIUM SERUM 3.5 MEQ/L (3.5-5.1); SODIUM LEVEL 143 MEQ/L (136-145)
[2018-04-21] MEDS: ENOXAPARIN 30 MG/0.3 ML SYR (J1650) SC (09:08)
[2018-04-21] MEDS: FAMOTIDINE 20 MG TAB PO ×2 (09:08→20:29)
[2018-04-21] MEDS: CLOPIDOGREL 75 MG TAB PO (09:08)
[2018-04-21] MEDS: amLODIPine 5 MG TAB PO ×2 (09:08→20:29)
[2018-04-21] MEDS: FERROUS GLUCONATE 324 MG TAB PO (09:08)
[2018-04-21] MEDS: FEXOFENADINE 60 MG TAB PO (09:08)
[2018-04-21] MEDS: cefTRIAXone SOD 1 GM in D5W MINI-BAG PLUS 50 ML IV (16:46)
[2018-04-21] MEDS: CETACAINE SPRAY 5GM As Ordered (18:16)
[2018-04-21] MEDS ORDERED: LIDOCAINE 2% INJ 100 MG/5 ML SDV (FOR ANES.) As Ordered (18:28)
[2018-04-21] MEDS ORDERED: PROPOFOL 200 MG/20 ML VIAL As Ordered (18:28)
[2018-04-21] MEDS ORDERED: ONDANSETRON 4MG/2ML VIAL (J2405) IV (19:00)
[2018-04-21] MEDS: LR 1,000 ML IV (19:00)
[2018-04-21] MEDS: LATANOPROST 0.005% OPHTH SOLN 2.5 ML OU (20:29)
[2018-04-21] MEDS: GABAPENTIN 100 MG CAP PO (20:29)
[2018-04-21] MEDS: VITAMIN D 1,000 INTERNATIONAL UNITS TABLET PO (20:29)
[2018-04-22] MEDS: SLF 3 ML SYR IV ×3 (05:19→21:02)
[2018-04-22 06:52] LABS: BASO # 0.1 10^3/uL (0.0-0.2); BASO % 0.5 % (0.0-1.0); EOS # 0.3 10^3/uL (0.0-0.50); EOS % 1.8 % (0.0-3.0); HEMATOCRIT 31.6 % (36.0-47.0); HEMOGLOBIN 10.2 g/dl (12.0-15.5); IMMATURE GRANULOCYTE % 0.5 % (0-3.0); LYMPH # 1.6 10^3/uL (1.5-4.5); LYMPH % 11.1 % (24.0-44.0); MEAN CORPUSCULAR HGB CONC 32.3 g/dl (32.0-36.5); MEAN CORPUSCULAR VOLUME 89.8 fl (80.0-96.0); MONO # 0.7 10^3/uL (0.0-0.8); MONO % 4.9 % (0.0-5.0); NEUTROPHILS % 81.2 % (36.0-66.0); PLATELET COUNT, AUTOMATED 566 10^3/uL (150-450); RED BLOOD COUNT 3.52 10^6/uL (4.00-5.40); WHITE BLOOD COUNT 14.8 10^3/uL (4.0-10.0)
[2018-04-22 07:21] LABS: ANION GAP 9 MEQ/L (8-16); BLOOD UREA NITROGEN 13 MG/DL (7-18); CALCIUM LEVEL 8.5 MG/DL (8.8-10.2); CARBON DIOXIDE LEVEL 27 MEQ/L (21-32); CHLORIDE LEVEL 107 MEQ/L (98-107); GLUCOSE, FASTING 99 MG/DL (70-100); POTASSIUM SERUM 3.2 MEQ/L (3.5-5.1); SODIUM LEVEL 143 MEQ/L (136-145)
[2018-04-22] MEDS: ENOXAPARIN 30 MG/0.3 ML SYR (J1650) SC (09:54)
[2018-04-22] MEDS: CLOPIDOGREL 75 MG TAB PO (09:55)
[2018-04-22] MEDS: POTASSIUM CHLORIDE 10 MEQ SR TABLET PO (09:55)
[2018-04-22] MEDS: FEXOFENADINE 60 MG TAB PO (09:55)
[2018-04-22] MEDS: FERROUS GLUCONATE 324 MG TAB PO (09:56)
[2018-04-22] MEDS: FAMOTIDINE 20 MG TAB PO ×2 (09:56→21:01)
[2018-04-22] MEDS: amLODIPine 5 MG TAB PO ×2 (09:56→21:01)
[2018-04-22] MEDS: cefTRIAXone SOD 1 GM in D5W MINI-BAG PLUS 50 ML IV (17:07)
[2018-04-22] MEDS: ACETAMINOPHEN TAB 650MG DOSE (2X325MG) PO ×2 (21:01)
[2018-04-22] MEDS: GABAPENTIN 100 MG CAP PO (21:01)
[2018-04-22] MEDS: LATANOPROST 0.005% OPHTH SOLN 2.5 ML OU (21:02)
[2018-04-22] MEDS: VITAMIN D 1,000 INTERNATIONAL UNITS TABLET PO (21:02)
[2018-04-23] MEDS: SLF 3 ML SYR IV ×3 (05:12→21:43)
[2018-04-23 06:29] LABS: BASO # 0.1 10^3/uL (0.0-0.2); BASO % 0.6 % (0.0-1.0); EOS # 0.5 10^3/uL (0.0-0.50); EOS % 5.3 % (0.0-3.0); HEMATOCRIT 30.2 % (36.0-47.0); HEMOGLOBIN 9.8 g/dl (12.0-15.5); IMMATURE GRANULOCYTE % 0.9 % (0-3.0); LYMPH # 1.2 10^3/uL (1.5-4.5); LYMPH % 13.9 % (24.0-44.0); MEAN CORPUSCULAR HEMOGLOBIN 29.6 pg (27.0-33.0); MEAN CORPUSCULAR HGB CONC 32.5 g/dl (32.0-36.5); MEAN CORPUSCULAR VOLUME 91.2 fl (80.0-96.0); MONO # 0.6 10^3/uL (0.0-0.8); MONO % 6.4 % (0.0-5.0); NEUTROPHILS # 6.4 10^3/uL (1.8-7.7); NEUTROPHILS % 72.9 % (36.0-66.0); PLATELET COUNT, AUTOMATED 480 10^3/uL (150-450); RED BLOOD COUNT 3.31 10^6/uL (4.00-5.40); RED CELL DISTRIBUTION WIDTH 13.9 % (11.5-14.5); WHITE BLOOD COUNT 8.8 10^3/uL (4.0-10.0)
[2018-04-23 06:52] LABS: ANION GAP 7 MEQ/L (8-16); BLOOD UREA NITROGEN 13 MG/DL (7-18); CALCIUM LEVEL 8.4 MG/DL (8.8-10.2); CARBON DIOXIDE LEVEL 28 MEQ/L (21-32); CHLORIDE LEVEL 107 MEQ/L (98-107); GLOMERULAR FILTRATION RATE 50.3 (>32); GLUCOSE, FASTING 91 MG/DL (70-100); SODIUM LEVEL 142 MEQ/L (136-145)
[2018-04-23 09:34] LABS: C REACTIVE PROTEIN QUANTITATIV 6.18 MG/DL (0.00-0.30)
[2018-04-23] MEDS: FEXOFENADINE 60 MG TAB PO (10:22)
[2018-04-23] MEDS: FERROUS GLUCONATE 324 MG TAB PO (10:23)
[2018-04-23] MEDS: CLOPIDOGREL 75 MG TAB PO (10:23)
[2018-04-23] MEDS: FAMOTIDINE 20 MG TAB PO ×2 (10:23→21:41)
[2018-04-23] MEDS: ENOXAPARIN 30 MG/0.3 ML SYR (J1650) SC (10:23)
[2018-04-23] MEDS: amLODIPine 5 MG TAB PO ×2 (10:25→21:42)
[2018-04-23 11:04] LABS: ERYTHROCYTE SEDIMENTATION RATE 79 mm/hr (0-42)
[2018-04-23] MEDS: AMOXICILLIN 500 MG CAP PO ×2 (14:02→21:41)
[2018-04-23] MEDS: FUROSEMIDE 40 MG/4 ML VIAL (J1940) IV ×2 (14:02→18:00)
[2018-04-23 20:22] LABS: ANION GAP 7 MEQ/L (8-16); BLOOD UREA NITROGEN 16 MG/DL (7-18); CALCIUM LEVEL 7.9 MG/DL (8.8-10.2); CARBON DIOXIDE LEVEL 29 MEQ/L (21-32); CHLORIDE LEVEL 105 MEQ/L (98-107); CREATININE FOR GFR 1.25 MG/DL (0.55-1.30); GLOMERULAR FILTRATION RATE 43.4 (>32); GLUCOSE, FASTING 109 MG/DL (70-100); MAGNESIUM LEVEL 1.9 MG/DL (1.8-2.4); POTASSIUM SERUM 3.7 MEQ/L (3.5-5.1); SODIUM LEVEL 141 MEQ/L (136-145)
[2018-04-23] MEDS: LATANOPROST 0.005% OPHTH SOLN 2.5 ML OU (21:41)
[2018-04-23] MEDS: GABAPENTIN 100 MG CAP PO (21:41)
[2018-04-23] MEDS: ACETAMINOPHEN TAB 650MG DOSE (2X325MG) PO (21:41)
[2018-04-23] MEDS: VITAMIN D 1,000 INTERNATIONAL UNITS TABLET PO (21:41)
[2018-04-24] MEDS: AMOXICILLIN 500 MG CAP PO ×3 (05:55→21:27)
[2018-04-24] MEDS: SLF 3 ML SYR IV ×4 (05:55→21:33)
[2018-04-24] MEDS: ENOXAPARIN 30 MG/0.3 ML SYR (J1650) SC (09:13)
[2018-04-24] MEDS: CLOPIDOGREL 75 MG TAB PO (09:13)
[2018-04-24] MEDS: FEXOFENADINE 60 MG TAB PO (09:13)
[2018-04-24] MEDS: FERROUS GLUCONATE 324 MG TAB PO (09:14)
[2018-04-24] MEDS: amLODIPine 5 MG TAB PO ×2 (09:14→21:28)
[2018-04-24] MEDS: FAMOTIDINE 20 MG TAB PO ×2 (09:14→21:27)
[2018-04-24] MEDS: MAG SULF 1GM/100ML (MAG RUN) 1 GM in APPROPRIATE DILUENT 1 EA IV (11:41)
[2018-04-24] MEDS: POTASSIUM CHLORIDE 10 MEQ SR TABLET PO (11:42)
[2018-04-24] MEDS: FUROSEMIDE 20 MG/2 ML VIAL (J1940) IV ×3 (11:42→20:00)
[2018-04-24 20:24] LABS: ANION GAP 8 MEQ/L (8-16); BLOOD UREA NITROGEN 19 MG/DL (7-18); CALCIUM LEVEL 8.1 MG/DL (8.8-10.2); CARBON DIOXIDE LEVEL 29 MEQ/L (21-32); CHLORIDE LEVEL 104 MEQ/L (98-107); CREATININE FOR GFR 1.53 MG/DL (0.55-1.30); GLOMERULAR FILTRATION RATE 34.3 (>32); GLUCOSE, FASTING 104 MG/DL (70-100); MAGNESIUM LEVEL 2.3 MG/DL (1.8-2.4); POTASSIUM SERUM 4.3 MEQ/L (3.5-5.1); SODIUM LEVEL 141 MEQ/L (136-145)
[2018-04-24] MEDS: VITAMIN D 1,000 INTERNATIONAL UNITS TABLET PO (21:27)
[2018-04-24] MEDS: GABAPENTIN 100 MG CAP PO (21:27)
[2018-04-24] MEDS: LATANOPROST 0.005% OPHTH SOLN 2.5 ML OU (21:29)
[2018-04-24] MEDS: ACETAMINOPHEN TAB 650MG DOSE (2X325MG) PO (21:29)
[2018-04-25 05:43] LABS: BASO # 0.1 10^3/uL (0.0-0.2); BASO % 0.8 % (0.0-1.0); EOS # 0.5 10^3/uL (0.0-0.50); EOS % 5.8 % (0.0-3.0); HEMATOCRIT 29.2 % (36.0-47.0); HEMOGLOBIN 9.4 g/dl (12.0-15.5); IMMATURE GRANULOCYTE % 0.8 % (0-3.0); LYMPH # 1.4 10^3/uL (1.5-4.5); LYMPH % 18.4 % (24.0-44.0); MEAN CORPUSCULAR HEMOGLOBIN 29.2 pg (27.0-33.0); MEAN CORPUSCULAR HGB CONC 32.2 g/dl (32.0-36.5); MEAN CORPUSCULAR VOLUME 90.7 fl (80.0-96.0); MONO # 0.6 10^3/uL (0.0-0.8); NEUTROPHILS # 5.2 10^3/uL (1.8-7.7); NEUTROPHILS % 66.2 % (36.0-66.0); PLATELET COUNT, AUTOMATED 507 10^3/uL (150-450); RED BLOOD COUNT 3.22 10^6/uL (4.00-5.40); RED CELL DISTRIBUTION WIDTH 13.9 % (11.5-14.5); WHITE BLOOD COUNT 7.8 10^3/uL (4.0-10.0)
[2018-04-25 05:55] LABS: ANION GAP 7 MEQ/L (8-16); BLOOD UREA NITROGEN 18 MG/DL (7-18); CALCIUM LEVEL 8.1 MG/DL (8.8-10.2); CARBON DIOXIDE LEVEL 30 MEQ/L (21-32); CHLORIDE LEVEL 105 MEQ/L (98-107); CREATININE FOR GFR 1.54 MG/DL (0.55-1.30); GLOMERULAR FILTRATION RATE 34.1 (>32); GLUCOSE, FASTING 88 MG/DL (70-100); MAGNESIUM LEVEL 2.4 MG/DL (1.8-2.4); POTASSIUM SERUM 3.9 MEQ/L (3.5-5.1); SODIUM LEVEL 142 MEQ/L (136-145)
[2018-04-25] MEDS: AMOXICILLIN 500 MG CAP PO ×3 (06:00→22:02)
[2018-04-25] MEDS: SLF 3 ML SYR IV ×3 (06:01→22:02)
[2018-04-25] MEDS: ENOXAPARIN 30 MG/0.3 ML SYR (J1650) SC (08:18)
[2018-04-25] MEDS: CLOPIDOGREL 75 MG TAB PO (08:19)
[2018-04-25] MEDS: FERROUS GLUCONATE 324 MG TAB PO (08:19)
[2018-04-25] MEDS: amLODIPine 5 MG TAB PO ×2 (08:19→20:39)
[2018-04-25] MEDS: FAMOTIDINE 20 MG TAB PO ×2 (08:19→20:39)
[2018-04-25] MEDS: FEXOFENADINE 60 MG TAB PO (08:19)
[2018-04-25 16:46] LABS: BEDSIDE GLUCOSE 85 MG/DL (83-110)
[2018-04-25] MEDS: ACETAMINOPHEN TAB 650MG DOSE (2X325MG) PO (20:38)
[2018-04-25] MEDS: VITAMIN D 1,000 INTERNATIONAL UNITS TABLET PO (20:39)
[2018-04-25] MEDS: GABAPENTIN 100 MG CAP PO (20:39)
[2018-04-25] MEDS: LATANOPROST 0.005% OPHTH SOLN 2.5 ML OU (20:39)
[2018-04-26] MEDS: AMOXICILLIN 500 MG CAP PO ×3 (05:23→20:22)
[2018-04-26] MEDS: SLF 3 ML SYR IV ×3 (05:24→20:22)
[2018-04-26 06:01] LABS: BASO # 0.1 10^3/uL (0.0-0.2); BASO % 0.8 % (0.0-1.0); EOS # 0.5 10^3/uL (0.0-0.50); EOS % 7.3 % (0.0-3.0); HEMATOCRIT 31.5 % (36.0-47.0); HEMOGLOBIN 9.8 g/dl (12.0-15.5); IMMATURE GRANULOCYTE % 0.9 % (0-3.0); LYMPH # 1.3 10^3/uL (1.5-4.5); LYMPH % 19.9 % (24.0-44.0); MEAN CORPUSCULAR HEMOGLOBIN 28.5 pg (27.0-33.0); MEAN CORPUSCULAR HGB CONC 31.1 g/dl (32.0-36.5); MEAN CORPUSCULAR VOLUME 91.6 fl (80.0-96.0); MONO # 0.5 10^3/uL (0.0-0.8); MONO % 7.6 % (0.0-5.0); NEUTROPHILS # 4.1 10^3/uL (1.8-7.7); NEUTROPHILS % 63.5 % (36.0-66.0); PLATELET COUNT, AUTOMATED 509 10^3/uL (150-450); RED BLOOD COUNT 3.44 10^6/uL (4.00-5.40); RED CELL DISTRIBUTION WIDTH 13.8 % (11.5-14.5); WHITE BLOOD COUNT 6.4 10^3/uL (4.0-10.0)
[2018-04-26 06:18] LABS: ANION GAP 5 MEQ/L (8-16); BLOOD UREA NITROGEN 18 MG/DL (7-18); CALCIUM LEVEL 8.6 MG/DL (8.8-10.2); CARBON DIOXIDE LEVEL 31 MEQ/L (21-32); CHLORIDE LEVEL 105 MEQ/L (98-107); CREATININE FOR GFR 1.31 MG/DL (0.55-1.30); GLOMERULAR FILTRATION RATE 41.1 (>32); GLUCOSE, FASTING 93 MG/DL (70-100); MAGNESIUM LEVEL 2.3 MG/DL (1.8-2.4); POTASSIUM SERUM 4.2 MEQ/L (3.5-5.1); SODIUM LEVEL 141 MEQ/L (136-145)
[2018-04-26] MEDS: ENOXAPARIN 30 MG/0.3 ML SYR (J1650) SC (08:35)
[2018-04-26] MEDS: FERROUS GLUCONATE 324 MG TAB PO (08:35)
[2018-04-26] MEDS: FEXOFENADINE 60 MG TAB PO (08:35)
[2018-04-26] MEDS: FAMOTIDINE 20 MG TAB PO ×2 (08:36→20:23)
[2018-04-26] MEDS: amLODIPine 5 MG TAB PO ×2 (08:36→20:23)
[2018-04-26] MEDS: CLOPIDOGREL 75 MG TAB PO (08:36)
[2018-04-26 11:59] LABS: APPEARANCE, URINE HAZY (CLEAR); BACTERIA, URINE AUTO 1+ (NEGATIVE); BILIRUBIN, URINE AUTO NEGATIVE (NEGATIVE); BLOOD, URINE BLOOD 1+ (NEGATIVE); COLOR, URINE YELLOW (YELLOW); GLUCOSE, URINE (UA) AUTO NEGATIVE (NEGATIVE); KETONE, URINE AUTO NEGATIVE (NEGATIVE); LEUKOCYTE ESTERASE, URINE AUTO 3+ (NEGATIVE); MUCUS, URINE SMALL (NEGATIVE); NITRITE, URINE AUTO NEGATIVE (NEGATIVE); PROTEIN, URINE AUTO 1+ mg/dL (NEGATIVE); RBC, URINE AUTO 24 /HPF (0-3); SPECIFIC GRAVITY URINE AUTO 1.009 (1.002-1.035); SQUAMOUS EPITHELIAL CELL UR AU 0 /HPF (0-6); UROBILINOGEN, URINE AUTO 0.2 mg/dL (0.0-2.0); WBC, URINE AUTO 58 /HPF (0-3)
[2018-04-26 15:56] LABS: C REACTIVE PROTEIN QUANTITATIV 2.24 MG/DL (0.00-0.30)
[2018-04-26] MEDS: GABAPENTIN 100 MG CAP PO (20:22)
[2018-04-26] MEDS: LATANOPROST 0.005% OPHTH SOLN 2.5 ML OU (20:23)
[2018-04-26] MEDS: VITAMIN D 1,000 INTERNATIONAL UNITS TABLET PO (20:23)
[2018-04-27] MEDS: SLF 3 ML SYR IV ×3 (06:25→20:11)
[2018-04-27] MEDS: AMOXICILLIN 500 MG CAP PO ×3 (06:25→20:11)
[2018-04-27 06:33] LABS: BASO % 0.6 % (0.0-1.0); EOS # 0.4 10^3/uL (0.0-0.50); EOS % 6.6 % (0.0-3.0); HEMATOCRIT 29.9 % (36.0-47.0); HEMOGLOBIN 9.5 g/dl (12.0-15.5); IMMATURE GRANULOCYTE % 0.8 % (0-3.0); LYMPH # 1.3 10^3/uL (1.5-4.5); LYMPH % 20.5 % (24.0-44.0); MEAN CORPUSCULAR HEMOGLOBIN 28.5 pg (27.0-33.0); MEAN CORPUSCULAR HGB CONC 31.8 g/dl (32.0-36.5); MEAN CORPUSCULAR VOLUME 89.8 fl (80.0-96.0); MONO # 0.6 10^3/uL (0.0-0.8); MONO % 8.5 % (0.0-5.0); NEUTROPHILS # 4.1 10^3/uL (1.8-7.7); PLATELET COUNT, AUTOMATED 537 10^3/uL (150-450); RED BLOOD COUNT 3.33 10^6/uL (4.00-5.40); RED CELL DISTRIBUTION WIDTH 13.8 % (11.5-14.5); WHITE BLOOD COUNT 6.5 10^3/uL (4.0-10.0)
[2018-04-27 06:59] LABS: ANION GAP 8 MEQ/L (8-16); BLOOD UREA NITROGEN 13 MG/DL (7-18); CALCIUM LEVEL 8.1 MG/DL (8.8-10.2); CARBON DIOXIDE LEVEL 27 MEQ/L (21-32); CHLORIDE LEVEL 107 MEQ/L (98-107); CREATININE FOR GFR 1.03 MG/DL (0.55-1.30); GLOMERULAR FILTRATION RATE 54.2 (>32); GLUCOSE, FASTING 89 MG/DL (70-100); MAGNESIUM LEVEL 2.2 MG/DL (1.8-2.4); SODIUM LEVEL 142 MEQ/L (136-145)
[2018-04-27] MEDS: ENOXAPARIN 30 MG/0.3 ML SYR (J1650) SC (09:09)
[2018-04-27] MEDS: amLODIPine 5 MG TAB PO ×2 (09:48→20:11)
[2018-04-27] MEDS: FERROUS GLUCONATE 324 MG TAB PO (09:48)
[2018-04-27] MEDS: FAMOTIDINE 20 MG TAB PO ×2 (09:48→20:10)
[2018-04-27] MEDS: CLOPIDOGREL 75 MG TAB PO (09:48)
[2018-04-27] MEDS: FEXOFENADINE 60 MG TAB PO (09:52)
[2018-04-27] MEDS: GABAPENTIN 100 MG CAP PO (20:10)
[2018-04-27] MEDS: LATANOPROST 0.005% OPHTH SOLN 2.5 ML OU (20:11)
[2018-04-27] MEDS: VITAMIN D 1,000 INTERNATIONAL UNITS TABLET PO (20:11)
[2018-04-28 06:09] LABS: BASO # 0.1 10^3/uL (0.0-0.2); BASO % 1.4 % (0.0-1.0); EOS # 0.4 10^3/uL (0.0-0.50); EOS % 6.7 % (0.0-3.0); HEMATOCRIT 30.9 % (36.0-47.0); HEMOGLOBIN 9.5 g/dl (12.0-15.5); IMMATURE GRANULOCYTE % 0.3 % (0-3.0); LYMPH # 1.2 10^3/uL (1.5-4.5); LYMPH % 20.8 % (24.0-44.0); MEAN CORPUSCULAR HEMOGLOBIN 28.5 pg (27.0-33.0); MEAN CORPUSCULAR HGB CONC 30.7 g/dl (32.0-36.5); MEAN CORPUSCULAR VOLUME 92.8 fl (80.0-96.0); MONO # 0.5 10^3/uL (0.0-0.8); MONO % 7.8 % (0.0-5.0); NEUTROPHILS # 3.7 10^3/uL (1.8-7.7); PLATELET COUNT, AUTOMATED 434 10^3/uL (150-450); RED BLOOD COUNT 3.33 10^6/uL (4.00-5.40); RED CELL DISTRIBUTION WIDTH 14.1 % (11.5-14.5); WHITE BLOOD COUNT 5.9 10^3/uL (4.0-10.0)
[2018-04-28] MEDS: AMOXICILLIN 500 MG CAP PO (06:19)
[2018-04-28] MEDS: SLF 3 ML SYR IV (06:19)
[2018-04-28 06:37] LABS: ANION GAP 7 MEQ/L (8-16); BLOOD UREA NITROGEN 13 MG/DL (7-18); CALCIUM LEVEL 8.5 MG/DL (8.8-10.2); CARBON DIOXIDE LEVEL 27 MEQ/L (21-32); CHLORIDE LEVEL 108 MEQ/L (98-107); CREATININE FOR GFR 0.98 MG/DL (0.55-1.30); GLOMERULAR FILTRATION RATE 57.4 (>32); GLUCOSE, FASTING 91 MG/DL (70-100); MAGNESIUM LEVEL 2.2 MG/DL (1.8-2.4); POTASSIUM SERUM 3.9 MEQ/L (3.5-5.1); SODIUM LEVEL 142 MEQ/L (136-145)
[2018-04-28] MEDS: FEXOFENADINE 60 MG TAB PO (08:22)
[2018-04-28] MEDS: CLOPIDOGREL 75 MG TAB PO (08:22)
[2018-04-28] MEDS: FAMOTIDINE 20 MG TAB PO (08:22)
[2018-04-28] MEDS: amLODIPine 5 MG TAB PO (08:22)
[2018-04-28] MEDS: FERROUS GLUCONATE 324 MG TAB PO (08:22)
[2018-04-28] MEDS: ENOXAPARIN 30 MG/0.3 ML SYR (J1650) SC (08:23)
== END 2018-04-28 13:00 | DRG 659 ==
LOC: M PCU 04-11 17:59 → M MSPAV 04-12 13:26 → M ED 16:10 → M ED INP 20:43 → M PCU 22:51
PROC: 0T768DZ Dilation of Right Ureter with Intraluminal Device, Via Natural or Artificial Opening Endoscopic (ICD-10-PCS; principal; 2018-04-10 21:00)
PROC: B246ZZ4 Ultrasonography of Right and Left Heart, Transesophageal (ICD-10-PCS; 2018-04-10 21:31)
DX: N13.6 Pyonephrosis (principal); G93.41 Metabolic encephalopathy; I50.31 Acute diastolic (congestive) heart failure; S22.089A Unspecified fracture of T11-T12 vertebra, initial encounter for closed fracture; S32.050A Wedge compression fracture of fifth lumbar vertebra, initial encounter for closed fracture; S51.012A Laceration without foreign body of left elbow, initial encounter; W19.XXXA Unspecified fall, initial encounter; Y92.129 Unspecified place in nursing home as the place of occurrence of the external cause; X58.XXXA Exposure to other specified factors, initial encounter; I08.0 Rheumatic disorders of both mitral and aortic valves; G62.9 Polyneuropathy, unspecified; N17.9 Acute kidney failure, unspecified; Y92.89 Other specified places as the place of occurrence of the external cause; J84.10 Pulmonary fibrosis, unspecified; I11.0 Hypertensive heart disease with heart failure; H35.30 Unspecified macular degeneration; I73.9 Peripheral vascular disease, unspecified; E78.79 Other disorders of bile acid and cholesterol metabolism; H40.9 Unspecified glaucoma; M19.90 Unspecified osteoarthritis, unspecified site; K21.9 Gastro-esophageal reflux disease without esophagitis; F41.9 Anxiety disorder, unspecified; D50.9 Iron deficiency anemia, unspecified; Z88.2 Allergy status to sulfonamides; Z79.01 Long term (current) use of anticoagulants; Z79.899 Other long term (current) drug therapy; Z97.8 Presence of other specified devices; Z86.718 Personal history of other venous thrombosis and embolism

== ENCOUNTER → 2018-05-04 | Outpatient (REF) ==
[2018-05-04 10:02] LABS: HEMATOCRIT 35.7 % (36.0-47.0); HEMOGLOBIN 11.2 g/dl (12.0-15.5); MEAN CORPUSCULAR HGB CONC 31.4 g/dl (32.0-36.5); MEAN CORPUSCULAR VOLUME 92.5 fl (80.0-96.0); PLATELET COUNT, AUTOMATED 490 10^3/uL (150-450); RED BLOOD COUNT 3.86 10^6/uL (4.00-5.40); RED CELL DISTRIBUTION WIDTH 14.4 % (11.5-14.5); WHITE BLOOD COUNT 6.3 10^3/uL (4.0-10.0)
[2018-05-04 10:35] LABS: ANION GAP 8 MEQ/L (8-16); BLOOD UREA NITROGEN 16 MG/DL (7-18); CALCIUM LEVEL 9.3 MG/DL (8.8-10.2); CARBON DIOXIDE LEVEL 30 MEQ/L (21-32); CHLORIDE LEVEL 102 MEQ/L (98-107); CREATININE FOR GFR 1.06 MG/DL (0.55-1.30); GLOMERULAR FILTRATION RATE 52.4 (>32); GLUCOSE, FASTING 118 MG/DL (70-100); POTASSIUM SERUM 3.9 MEQ/L (3.5-5.1); SODIUM LEVEL 140 MEQ/L (136-145)
== END ==
DX: I10 Essential (primary) hypertension (principal)

== ENCOUNTER → 2018-05-11 | Outpatient (REF) ==
[2018-05-11 10:22] LABS: HEMATOCRIT 36.1 % (36.0-47.0); HEMOGLOBIN 11.2 g/dl (12.0-15.5); MEAN CORPUSCULAR HEMOGLOBIN 28.3 pg (27.0-33.0); MEAN CORPUSCULAR VOLUME 91.2 fl (80.0-96.0); PLATELET COUNT, AUTOMATED 404 10^3/uL (150-450); RED BLOOD COUNT 3.96 10^6/uL (4.00-5.40); RED CELL DISTRIBUTION WIDTH 14.9 % (11.5-14.5); WHITE BLOOD COUNT 7.3 10^3/uL (4.0-10.0)
[2018-05-11 10:49] LABS: ANION GAP 9 MEQ/L (8-16); BLOOD UREA NITROGEN 17 MG/DL (7-18); CALCIUM LEVEL 8.7 MG/DL (8.8-10.2); CARBON DIOXIDE LEVEL 30 MEQ/L (21-32); CHLORIDE LEVEL 101 MEQ/L (98-107); CREATININE FOR GFR 1.01 MG/DL (0.55-1.30); GLOMERULAR FILTRATION RATE 55.5 (>32); GLUCOSE, FASTING 113 MG/DL (70-100); POTASSIUM SERUM 3.9 MEQ/L (3.5-5.1); SODIUM LEVEL 140 MEQ/L (136-145)
== END ==
DX: I10 Essential (primary) hypertension (principal)

== ENCOUNTER → 2018-05-26 | Outpatient (REF) ==
[~2018-05-26] MED LIST changes: +ACE65ERTAB PO; +ACET500T15 PO; +ACID1CHW5 PO; +ACIDTAB7 PO; +ALLE180T33 PO; +AMLO5TAB4 PO; +AMOX500C PO; +APAP325T4 PO; +ASPI1TAB PO; +ASPI81TA85 PO; +CALCTAB68 PO; +CIPR500T3 PO; +CLOP75TA2 PO; +CRAN1TAB PO; +DORZ2SOL5 OU; +FERR32TA PO; +FLUOCRE TOP; +GABA-1171 PO; -GLYCOPYRROLATE INJ 0.2 MG/ML 2 ML VIAL As Ordered; +HYDR-3713 PO; -KETOROLAC 60 MG/2 ML VIAL (J1885) As Ordered; +LATA5OPD OU; -LIDOCAINE 2% INJ 100 MG/5 ML SDV (FOR ANES.) As Ordered; +LOSA100T8 PO; +LOVE1INJ SC; -LR 1,000 ML IV; +MACR100C43 PO; -MIDAZOLAM INJ 2 MG/2 ML VIAL (J2250) As Ordered; +MILK12002 PO; +MULT1TAB10 PO; +MULTCAP PO; -NEOSTIGMINE 10 MG/10 ML VIAL (J2710) As Ordered; -ONDANSETRON 4MG/2ML VIAL (J2405) As Ordered; +PLAV1TAB2 PO; -PROPOFOL 200 MG/20 ML VIAL As Ordered; +RANI150T PO; -ROCURONIUM BROMIDE 50 MG/5 ML VIAL As Ordered; +STRETAB4 PO; +TYLE500T78 PO; +VALS1TAB47 PO; +VITA20008 PO; +XALA0.007 OU; -dexameTHASONE 4 MG/ML 1ML VIAL (J1100) As Ordered; -fentaNYL 100 MCG/2 ML INJECTION (J3010) As Ordered
[2018-05-26 11:33] LABS: HEMATOCRIT 40.4 % (36.0-47.0); HEMOGLOBIN 12.6 g/dl (12.0-15.5); MEAN CORPUSCULAR HEMOGLOBIN 29.1 pg (27.0-33.0); MEAN CORPUSCULAR HGB CONC 31.2 g/dl (32.0-36.5); MEAN CORPUSCULAR VOLUME 93.3 fl (80.0-96.0); PLATELET COUNT, AUTOMATED 388 10^3/uL (150-450); RED BLOOD COUNT 4.33 10^6/uL (4.00-5.40); WHITE BLOOD COUNT 6.9 10^3/uL (4.0-10.0)
[2018-05-26 12:07] LABS: BLOOD UREA NITROGEN 17 MG/DL (7-18); CALCIUM LEVEL 9.4 MG/DL (8.8-10.2); CARBON DIOXIDE LEVEL 30 MEQ/L (21-32); CHLORIDE LEVEL 101 MEQ/L (98-107); CREATININE FOR GFR 0.91 MG/DL (0.55-1.30); GLOMERULAR FILTRATION RATE > 60.0 (>32); GLUCOSE, FASTING 67 MG/DL (70-100); POTASSIUM SERUM 4.2 MEQ/L (3.5-5.1); SODIUM LEVEL 140 MEQ/L (136-145)
== END ==
PROVIDERS: ATTEND Internal Medicine
DX: I10 Essential (primary) hypertension (principal)

== ENCOUNTER → 2018-06-18 | Outpatient (REF) ==
[~2018-06-18] MED LIST changes: -AMLO5TAB4 PO; +AMLO5TAB6 PO; +MILK120011 PO; -MILK12002 PO
[2018-06-18 13:12] LABS: HEMATOCRIT 35.6 % (36.0-47.0); HEMOGLOBIN 11.4 g/dl (12.0-15.5); MEAN CORPUSCULAR HEMOGLOBIN 28.7 pg (27.0-33.0); MEAN CORPUSCULAR VOLUME 89.7 fl (80.0-96.0); PLATELET COUNT, AUTOMATED 323 10^3/uL (150-450); RED BLOOD COUNT 3.97 10^6/uL (4.00-5.40); WHITE BLOOD COUNT 11.9 10^3/uL (4.0-10.0)
[2018-06-18 13:56] LABS: CREATININE FOR GFR 1.88 MG/DL (0.55-1.30); GLOMERULAR FILTRATION RATE 27.1 (>32); POTASSIUM SERUM 3.9 MEQ/L (3.5-5.1)
[2018-06-18 14:15] LABS: INFLUENZA A AMPLIFICATION NEGATIVE (NEGATIVE); INFLUENZA B AMPLIFICATION NEGATIVE (NEGATIVE)
[2018-06-19 10:14] LABS: APPEARANCE, URINE TURBID (CLEAR); BACTERIA, URINE AUTO 2+ (NEGATIVE); BILIRUBIN, URINE AUTO NEGATIVE (NEGATIVE); BLOOD, URINE BLOOD 3+ (NEGATIVE); COLOR, URINE YELLOW (YELLOW); GLUCOSE, URINE (UA) AUTO NEGATIVE (NEGATIVE); KETONE, URINE AUTO NEGATIVE (NEGATIVE); LEUKOCYTE ESTERASE, URINE AUTO 3+ (NEGATIVE); MUCUS, URINE SMALL (NEGATIVE); NITRITE, URINE AUTO NEGATIVE (NEGATIVE); PROTEIN, URINE AUTO 2+ mg/dL (NEGATIVE); RBC, URINE AUTO 53 /HPF (0-3); SQUAMOUS EPITHELIAL CELL UR AU 0 /HPF (0-6); UROBILINOGEN, URINE AUTO 0.2 mg/dL (0.0-2.0); WBC, URINE AUTO TNTC /HPF (0-3)
== END ==
PROVIDERS: ATTEND Internal Medicine
DX: R11.10 Vomiting, unspecified (principal)

== ENCOUNTER → 2018-06-19 | Outpatient (REF) | payer MEDICARE, MEDICAID | PROVIDERS: ATTEND Internal Medicine | DX: R50.9 Fever, unspecified (principal) ==

== ENCOUNTER → 2018-06-21 | Outpatient (CLI) | payer MEDICARE, MEDICAID ==
--- NOTE | 2018-06-21 14:31 | REP ---
Clinical: Acute right lower quadrant pain. Technique: Axial noncontrast images from the lung bases to the pubic symphysis with coronal and sagittal re-formations. Comparison: 04/15/2018. Findings: Lung bases demonstrate small residual pleural effusions and bibasilar atelectasis which appears improved compared to prior examination. A right ureteral stent is again identified in satisfactory position and while the overall appearance to the right kidney is unchanged - again demonstrating hydroureteronephrosis and nephroureterolithiasis, there appears to be moderately increased perinephric stranding primarily adjacent to the renal pelvis which may reflect associated pyelonephritis and possibly related to patient's symptoms. Right intrarenal calculi measure up to approximately 11 mm and few distal right ureteral calculi adjacent to the stent measure approximately 3 mm each. Left kidney again appears atrophic and demonstrates 3 mm intrarenal calculus and mild chronic perinephric stranding without hydronephrosis or hydroureter. Liver, spleen, pancreas, gallbladder, and bilateral adrenal glands are relatively normal / stable. The enteric system is without obstruction or acute inflammatory process. The cecum is identified in the deep pelvis and while the terminal ileum and appendix are not visualized, there is no definite evidence to suggest acute appendicitis. Pelvis demonstrates collapsed bladder. No significant ascites. No free air. No obvious adenopathy. Extensive atherosclerotic disease to the aorta and vasculature noted without aneurysm. Musculoskeletal structures demonstrate advanced osteopenia and degenerative changes without acute focal osseous abnormality. Vertebra plana at T12 and L5 again noted along with mild nonacute compression deformity at L3. Impression: 1. Findings related to the right kidney with mildly increased perinephric stranding may reflect pyelonephritis and be related to patient's symptoms. 2. No evidence for acute appendicitis by current CT evaluation. 3. Further chronic stable changes as described above. Electronically Signed by Julio De La Vega MD 06/21/2018 02:22 P
== END ==
LOC: M RAD 13:40
PROVIDERS: ATTEND Physician Assistant
DX: R93.5 Abnormal findings on diagnostic imaging of other abdominal regions, including retroperitoneum (principal); R10.31 Right lower quadrant pain; E86.0 Dehydration

== ENCOUNTER → 2018-06-21 | Outpatient (REF) | payer MEDICARE, OTHER, MEDICAID ==
[~2018-06-21] MED LIST changes: +LOSA50TA5 PO; +POTA1TAB14 PO
[2018-06-21 10:23] LABS: HEMATOCRIT 28.1 % (36.0-47.0); HEMOGLOBIN 9.3 g/dl (12.0-15.5); MEAN CORPUSCULAR HEMOGLOBIN 29.4 pg (27.0-33.0); MEAN CORPUSCULAR HGB CONC 33.1 g/dl (32.0-36.5); MEAN CORPUSCULAR VOLUME 88.9 fl (80.0-96.0); PLATELET COUNT, AUTOMATED 302 10^3/uL (150-450); RED BLOOD COUNT 3.16 10^6/uL (4.00-5.40); WHITE BLOOD COUNT 14.9 10^3/uL (4.0-10.0)
[2018-06-21 10:44] LABS: CALCIUM LEVEL 8.1 MG/DL (8.8-10.2); CREATININE FOR GFR 1.07 MG/DL (0.55-1.30); GLOMERULAR FILTRATION RATE 51.9 (>32); POTASSIUM SERUM 3.6 MEQ/L (3.5-5.1)
== END ==
PROVIDERS: ATTEND Internal Medicine
DX: E86.0 Dehydration (principal)

== ENCOUNTER → 2018-06-22 | Outpatient (REF) | payer MEDICARE, MEDICAID ==
[~2018-06-22] MED LIST changes: -LOSA50TA5 PO; -POTA1TAB14 PO
[2018-06-22 09:06] LABS: HEMATOCRIT 31.2 % (36.0-47.0); HEMOGLOBIN 10.1 g/dl (12.0-15.5); MEAN CORPUSCULAR HEMOGLOBIN 28.9 pg (27.0-33.0); MEAN CORPUSCULAR HGB CONC 32.4 g/dl (32.0-36.5); MEAN CORPUSCULAR VOLUME 89.1 fl (80.0-96.0); PLATELET COUNT, AUTOMATED 383 10^3/uL (150-450); WHITE BLOOD COUNT 11.3 10^3/uL (4.0-10.0)
[2018-06-22 09:30] LABS: CALCIUM LEVEL 8.1 MG/DL (8.8-10.2); CREATININE FOR GFR 0.97 MG/DL (0.55-1.30); GLOMERULAR FILTRATION RATE 58.1 (>32); POTASSIUM SERUM 3.1 MEQ/L (3.5-5.1)
== END ==
PROVIDERS: ATTEND Internal Medicine
DX: R10.9 Unspecified abdominal pain (principal)

== ENCOUNTER → 2018-06-24 | Outpatient (REF) | payer MEDICARE, MEDICAID ==
[2018-06-24 12:30] LABS: HEMATOCRIT 31.3 % (36.0-47.0); HEMOGLOBIN 10.1 g/dl (12.0-15.5); MEAN CORPUSCULAR HEMOGLOBIN 29.2 pg (27.0-33.0); MEAN CORPUSCULAR HGB CONC 32.3 g/dl (32.0-36.5); MEAN CORPUSCULAR VOLUME 90.5 fl (80.0-96.0); PLATELET COUNT, AUTOMATED 478 10^3/uL (150-450); RED BLOOD COUNT 3.46 10^6/uL (4.00-5.40); WHITE BLOOD COUNT 7.9 10^3/uL (4.0-10.0)
[2018-06-24 12:52] LABS: BLOOD UREA NITROGEN 14 MG/DL (7-18); CALCIUM LEVEL 8.5 MG/DL (8.8-10.2); CARBON DIOXIDE LEVEL 29 MEQ/L (21-32); CHLORIDE LEVEL 102 MEQ/L (98-107); CREATININE FOR GFR 0.77 MG/DL (0.55-1.30); GLOMERULAR FILTRATION RATE > 60.0 (>32); GLUCOSE, FASTING 109 MG/DL (70-100); POTASSIUM SERUM 3.6 MEQ/L (3.5-5.1); SODIUM LEVEL 140 MEQ/L (136-145)
== END ==
PROVIDERS: ATTEND Internal Medicine
DX: E87.6 Hypokalemia (principal)

== ENCOUNTER → 2018-06-29 | Outpatient (REF) | payer MEDICARE, MEDICAID ==
[~2018-06-29] MED LIST changes: +LOSA50TA5 PO; +POTA1TAB14 PO
[2018-06-29 13:39] LABS: INR 1.02; PROTHROMBIN TIME 13.5 SECONDS (12.1-14.4)
[2018-06-29 13:40] LABS: PARTIAL THROMBOPLASTIN TIME 32.5 SECONDS (25.4-37.6)
[2018-06-29 13:42] LABS: BLOOD UREA NITROGEN 13 MG/DL (7-18); CALCIUM LEVEL 9.1 MG/DL (8.8-10.2); CARBON DIOXIDE LEVEL 28 MEQ/L (21-32); CHLORIDE LEVEL 104 MEQ/L (98-107); CREATININE FOR GFR 0.81 MG/DL (0.55-1.30); GLOMERULAR FILTRATION RATE > 60.0 (>32); GLUCOSE, FASTING 94 MG/DL (70-100); POTASSIUM SERUM 4.7 MEQ/L (3.5-5.1); SODIUM LEVEL 140 MEQ/L (136-145)
[2018-06-29 21:19] LABS: APPEARANCE, URINE HAZY (CLEAR); BACTERIA, URINE AUTO 1+ (NEGATIVE); BILIRUBIN, URINE AUTO NEGATIVE (NEGATIVE); BLOOD, URINE BLOOD 1+ (NEGATIVE); COLOR, URINE YELLOW (YELLOW); GLUCOSE, URINE (UA) AUTO NEGATIVE (NEGATIVE); KETONE, URINE AUTO NEGATIVE (NEGATIVE); LEUKOCYTE ESTERASE, URINE AUTO 2+ (NEGATIVE); MUCUS, URINE SMALL (NEGATIVE); NITRITE, URINE AUTO NEGATIVE (NEGATIVE); PROTEIN, URINE AUTO 1+ mg/dL (NEGATIVE); RBC, URINE AUTO 9 /HPF (0-3); SPECIFIC GRAVITY URINE AUTO 1.013 (1.002-1.035); SQUAMOUS EPITHELIAL CELL UR AU 0 /HPF (0-6); UROBILINOGEN, URINE AUTO 0.2 mg/dL (0.0-2.0); WBC, URINE AUTO 79 /HPF (0-3)
== END ==
PROVIDERS: ATTEND Internal Medicine
DX: Z01.818 Encounter for other preprocedural examination (principal); Z79.899 Other long term (current) drug therapy

== ENCOUNTER → 2018-06-30 | Outpatient (REF) | payer MEDICARE, MEDICAID ==
[2018-06-30 08:47] LABS: HEMOGLOBIN 11.1 g/dl (12.0-15.5); MEAN CORPUSCULAR HEMOGLOBIN 28.8 pg (27.0-33.0); MEAN CORPUSCULAR HGB CONC 30.8 g/dl (32.0-36.5); MEAN CORPUSCULAR VOLUME 93.5 fl (80.0-96.0); PLATELET COUNT, AUTOMATED 682 10^3/uL (150-450); RED BLOOD COUNT 3.85 10^6/uL (4.00-5.40); WHITE BLOOD COUNT 6.8 10^3/uL (4.0-10.0)
== END ==
PROVIDERS: ATTEND Internal Medicine
DX: E87.6 Hypokalemia (principal); R10.9 Unspecified abdominal pain

== ENCOUNTER 2018-07-07 08:02 | Day surgery (SDC) | payer MEDICARE, MEDICAID ==
[~2018-07-07] VITALS: Ht 121.9 cm; Wt 45.8 kg
[~2018-07-07 08:02] MED LIST changes: +CONRAY-60 60% 50ML VIAL (Q9961) As Ordered ONE; +LR 1,000 ML IV ONE
[2018-07-07] MEDS ORDERED: PROPOFOL 200 MG/20 ML VIAL As Ordered ONE (09:12)
[2018-07-07] MEDS ORDERED: LIDOCAINE 2% INJ 100 MG/5 ML SDV (FOR ANES.) As Ordered ONE (09:12)
[2018-07-07] MEDS ORDERED: dexameTHASONE 4 MG/ML 1ML VIAL (J1100) As Ordered ONE (09:12)
[2018-07-07] MEDS ORDERED: ONDANSETRON 4MG/2ML VIAL (J2405) As Ordered ONE (09:12)
[2018-07-07] MEDS ORDERED: fentaNYL 100 MCG/2 ML INJECTION (J3010) As Ordered ONE (09:13)
[2018-07-07] MEDS ORDERED: LIDOCAINE 2% 5ML JELLY UROJET As Ordered ONE (11:22)
[2018-07-07 13:00] VITALS: BP 172/73
--- NOTE | 2018-07-07 15:43 | REP ---
C-ARM VIEWS DURING RIGHT URETERAL STENT PLACEMENT: Multiple C-ARM views are performed. Contrast partially opacifies the mildly dilated right pelvicaliceal system. A right ureteral stent is placed. The proximal end is coiled in the right upper pole collecting system. The distal end is coiled in the region of the urinary bladder. 17 seconds of fluoroscopy was utilized. Electronically Signed by Aaron Holley MD 07/07/2018 08:13 P
--- NOTE | 2018-07-09 14:59 | RO ---
DATE OF PROCEDURE: 07/07/2018 PREPROCEDURE DIAGNOSIS: Kidney stones. POSTPROCEDURE DIAGNOSIS: Kidney stones. PROCEDURE: Cystoscopy, right ureteral stent exchange, right ureteral dilation, right retrograde pyelogram with intraoperative interpretation of images. SURGEON: Dr. Jovany Smith QUENCHING CAR OPERATOR: None. ANESTHESIA: MAC. OPERATIVE INDICATIONS: This is a 37-year-old female with kidney stones, which were treated previously. We have had difficulty clearing her stone burden and each time we removed her stent, she would become obstructed again with another stone. It was therefore recommended to manage her with chronic ureteral stenting. She is here today for stent exchange. DESCRIPTION OF PROCEDURE: The patient was brought to the operating room, where MAC anesthesia was administered. Prophylactic antibiotics were infused. She was then placed in the dorsal lithotomy position and prepped and draped in the usual sterile fashion. A rigid cystoscope was then inserted into the urethral meatus and advanced into the bladder. The previously placed stent was seen and then grasped. It was withdrawn until the distal end was seen protruding from the urethral meatus. A wire was then advanced up the right collecting system and the stent was removed. I then tried to advance the cannula for the Resonance stent over the wire but it would not go. I therefore, dilated the ureter to 12-Kinyarwanda using blue Cook fascial dilators. Once that was done, I was able to get the cannula over the wire. The wire was then removed and a retrograde pyelogram was performed. It was notable for moderate right hydronephrosis without extravasation. I then advanced 6Fr x 22cm Resonance stent up the cannula into the right collecting system. It was pushed all the way up until there was an adequate curl in the right kidney. The cannula was removed leaving an adequate curl inside the bladder. The bladder was then emptied of all fluid, and this marked the conclusion of the procedure. The patient was then taken out of the dorsal lithotomy position, awakened from anesthesia, and transported to the recovery room in stable condition. ESTIMATED BLOOD LOSS: 5 mL. COMPLICATIONS: None. SPECIMENS: None. PLAN: I will have the patient get an ultrasound of the kidneys in approximately 3 months, assuming there is no hydronephrosis, I will keep the stent in longer, but the goal will be to try to keep the stent in for up to a year before we have to change it. [facility]
== END 2018-07-07 13:15 | disposition home or self-care (01) ==
LOC: M SDC 08:02
PROVIDERS: ATTEND Urology
DX: N20.0 Calculus of kidney (principal); I10 Essential (primary) hypertension; I25.10 Atherosclerotic heart disease of native coronary artery without angina pectoris; E78.5 Hyperlipidemia, unspecified; Z88.2 Allergy status to sulfonamides; Z79.01 Long term (current) use of anticoagulants; Z79.899 Other long term (current) drug therapy; I73.9 Peripheral vascular disease, unspecified
CPT/HCPCS: 52332; 52341; 74420; C1769; C2625; J0690; J1100; J2405; J3010; Q9961

== ENCOUNTER → 2018-07-27 | Outpatient (REF) | payer MEDICARE, MEDICAID ==
[~2018-07-27] MED LIST changes: -CONRAY-60 60% 50ML VIAL (Q9961) As Ordered ONE; -LR 1,000 ML IV ONE
[2018-07-27 10:06] LABS: HEMATOCRIT 38.9 % (36.0-47.0); HEMOGLOBIN 12.2 g/dl (12.0-15.5); MEAN CORPUSCULAR HEMOGLOBIN 29.1 pg (27.0-33.0); MEAN CORPUSCULAR HGB CONC 31.4 g/dl (32.0-36.5); MEAN CORPUSCULAR VOLUME 92.8 fl (80.0-96.0); PLATELET COUNT, AUTOMATED 358 10^3/uL (150-450); RED BLOOD COUNT 4.19 10^6/uL (4.00-5.40); WHITE BLOOD COUNT 6.9 10^3/uL (4.0-10.0)
[2018-07-27 11:24] LABS: BLOOD UREA NITROGEN 17 MG/DL (7-18); CALCIUM LEVEL 9.2 MG/DL (8.8-10.2); CARBON DIOXIDE LEVEL 29 MEQ/L (21-32); CHLORIDE LEVEL 102 MEQ/L (98-107); CREATININE FOR GFR 0.89 MG/DL (0.55-1.30); GLOMERULAR FILTRATION RATE > 60.0 (>32); GLUCOSE, FASTING 121 MG/DL (70-100); POTASSIUM SERUM 3.8 MEQ/L (3.5-5.1); SODIUM LEVEL 140 MEQ/L (136-145)
== END ==
PROVIDERS: ATTEND Internal Medicine
DX: I10 Essential (primary) hypertension (principal)

== ENCOUNTER → 2018-08-12 | Outpatient (REF) | payer MEDICARE, MEDICAID ==
[2018-08-12 19:53] LABS: HEMATOCRIT 34.6 % (36.0-47.0); HEMOGLOBIN 11.2 g/dl (12.0-15.5); MEAN CORPUSCULAR HEMOGLOBIN 28.8 pg (27.0-33.0); MEAN CORPUSCULAR HGB CONC 32.4 g/dl (32.0-36.5); MEAN CORPUSCULAR VOLUME 88.9 fl (80.0-96.0); PLATELET COUNT, AUTOMATED 394 10^3/uL (150-450); RED BLOOD COUNT 3.89 10^6/uL (4.00-5.40); WHITE BLOOD COUNT 10.6 10^3/uL (4.0-10.0)
[2018-08-12 20:21] LABS: ALBUMIN 3.2 GM/DL (3.2-5.2); BILIRUBIN,TOTAL 0.7 MG/DL (0.2-1.0); CALCIUM LEVEL 8.8 MG/DL (8.8-10.2); CREATININE FOR GFR 0.97 MG/DL (0.55-1.30); GLOMERULAR FILTRATION RATE 58.1 (>32); POTASSIUM SERUM 3.9 MEQ/L (3.5-5.1); TOTAL PROTEIN 6.9 GM/DL (6.4-8.2)
[2018-08-12 20:27] LABS: INFLUENZA A AMPLIFICATION NEGATIVE (NEGATIVE); INFLUENZA B AMPLIFICATION NEGATIVE (NEGATIVE)
== END ==
PROVIDERS: ATTEND Internal Medicine
DX: R50.9 Fever, unspecified (principal)

== ENCOUNTER → 2018-08-13 | Outpatient (REF) | payer MEDICARE, MEDICAID ==
[2018-08-13 04:59] LABS: APPEARANCE, URINE MANUAL CLOUDY (CLEAR)
[2018-08-13 05:00] LABS: COLOR, URINE MANUAL LT YELLOW (YELLOW); PROTEIN, URINE MANUAL 2+ mg/dL (NEGATIVE); SPECIFIC GRAVITY,URINE MANUAL 1.015 (1.002-1.035)
[2018-08-13 05:01] LABS: BILIRUBIN, URINE MANUAL NEGATIVE (NEGATIVE); BLOOD URINE MANUAL POSITIVE (NEGATIVE); GLUCOSE, URINE (UA) MANUAL NEGATIVE (NEGATIVE); KETONE, URINE MANUAL NEGATIVE (NEGATIVE); LEUKOCYTE ESTERASE, URINE MAN POSITIVE (NEGATIVE); NITRITE, URINE MANUAL NEGATIVE (NEGATIVE); UROBILINOGEN, URINE MANUAL NORMAL (NORMAL)
[2018-08-13 05:09] LABS: WBC, URINE TNTC /hpf (0-3)
[2018-08-13 05:10] LABS: HYALINE CAST, URINE NONE SEEN /lpf (0-1)
[2018-08-13 05:11] LABS: SQUAMOUS EPITHELIAL CELL URINE NONE SEEN /hpf (SMALL AMT)
[2018-08-13 05:12] LABS: BACTERIA, URINE LARGE AMOUNT; MUCUS, URINE SMALL AMOUNT (NEGATIVE)
== END ==
DX: R50.9 Fever, unspecified (principal); Z79.899 Other long term (current) drug therapy

== ENCOUNTER → 2018-08-25 | Outpatient (REF) | payer MEDICARE, MEDICAID ==
[2018-08-25 09:06] LABS: HEMOGLOBIN 10.8 g/dl (12.0-15.5); MEAN CORPUSCULAR HEMOGLOBIN 28.9 pg (27.0-33.0); MEAN CORPUSCULAR HGB CONC 31.8 g/dl (32.0-36.5); MEAN CORPUSCULAR VOLUME 90.9 fl (80.0-96.0); PLATELET COUNT, AUTOMATED 476 10^3/uL (150-450); RED BLOOD COUNT 3.74 10^6/uL (4.00-5.40); WHITE BLOOD COUNT 8.7 10^3/uL (4.0-10.0)
[2018-08-25 09:31] LABS: BLOOD UREA NITROGEN 19 MG/DL (7-18); CALCIUM LEVEL 8.6 MG/DL (8.8-10.2); CARBON DIOXIDE LEVEL 29 MEQ/L (21-32); CHLORIDE LEVEL 103 MEQ/L (98-107); CREATININE FOR GFR 0.83 MG/DL (0.55-1.30); GLOMERULAR FILTRATION RATE > 60.0 (>32); GLUCOSE, FASTING 82 MG/DL (70-100); POTASSIUM SERUM 4.5 MEQ/L (3.5-5.1); SODIUM LEVEL 138 MEQ/L (136-145)
== END ==
PROVIDERS: ATTEND Internal Medicine
DX: I10 Essential (primary) hypertension (principal); Z79.899 Other long term (current) drug therapy

== ENCOUNTER → 2018-09-02 | Outpatient (REF) | payer MEDICARE, MEDICAID ==
[~2018-09-02] MED LIST changes: -ASPI1TAB PO; +ASPI81TA26 PO; +LATA0.0013 OU; -LATA5OPD OU; -VALS1TAB47 PO; +VALS1TAB67 PO
== END ==
PROVIDERS: ATTEND Internal Medicine
DX: R31.9 Hematuria, unspecified (principal); D72.829 Elevated white blood cell count, unspecified

== ENCOUNTER → 2018-09-28 | Outpatient (CLI) | payer MEDICARE, MEDICAID ==
--- NOTE | 2018-09-28 14:20 | REP ---
REASON: Chronic renal stent. Evaluate for hydronephrosis. Right kidney measures 10 x 7.1 x 4.7 cm and left measures 8.1 x 3.5 x 3.3 cm. There is no hydronephrosis, cystic, or solid mass on either side. There is an echogenic structure/specular reflection seen in the right kidney upper pole region consistent with a stent. Also seen in the right kidney but in the lower pole region, there is acoustic shadowing from an echogenic focus possibly representing calculi. There is mild bilateral renal cortical thinning but with good cortical medullary differentiation. IMPRESSION: 1. Right renal stent suspected as described above. 2. Possible right renal calculi. 3. Evidence of bilateral age-related renal atrophic changes seen as cortical thinning. Electronically Signed by Rell Reaves DO 09/28/2018 03:41 P
== END ==
LOC: M RAD 10:45
PROVIDERS: ATTEND Urology
DX: N13.30 Unspecified hydronephrosis (principal)

== ENCOUNTER → 2018-09-29 | Outpatient (REF) | payer MEDICARE, MEDICAID ==
[2018-09-29 09:15] LABS: HEMATOCRIT 40.2 % (36.0-47.0); HEMOGLOBIN 12.7 g/dl (12.0-15.5); MEAN CORPUSCULAR HEMOGLOBIN 28.9 pg (27.0-33.0); MEAN CORPUSCULAR HGB CONC 31.6 g/dl (32.0-36.5); MEAN CORPUSCULAR VOLUME 91.4 fl (80.0-96.0); PLATELET COUNT, AUTOMATED 461 10^3/uL (150-450); WHITE BLOOD COUNT 7.6 10^3/uL (4.0-10.0)
[2018-09-29 09:35] LABS: CALCIUM LEVEL 10.1 MG/DL (8.8-10.2); CREATININE FOR GFR 0.98 MG/DL (0.55-1.30); GLOMERULAR FILTRATION RATE 57.4 (>32)
== END ==
PROVIDERS: ATTEND Family Medicine
DX: I10 Essential (primary) hypertension (principal)

== ENCOUNTER → 2018-10-27 | Outpatient (REF) ==
[2018-10-27 10:12] LABS: HEMATOCRIT 36.6 % (36.0-47.0); HEMOGLOBIN 11.7 g/dl (12.0-15.5); MEAN CORPUSCULAR HEMOGLOBIN 29.7 pg (27.0-33.0); MEAN CORPUSCULAR VOLUME 92.9 fl (80.0-96.0); PLATELET COUNT, AUTOMATED 347 10^3/uL (150-450); RED BLOOD COUNT 3.94 10^6/uL (4.00-5.40); WHITE BLOOD COUNT 6.2 10^3/uL (4.0-10.0)
[2018-10-27 10:41] LABS: BLOOD UREA NITROGEN 21 MG/DL (7-18); CALCIUM LEVEL 9.7 MG/DL (8.8-10.2); CARBON DIOXIDE LEVEL 29 MEQ/L (21-32); CHLORIDE LEVEL 103 MEQ/L (98-107); CREATININE FOR GFR 0.88 MG/DL (0.55-1.30); GLOMERULAR FILTRATION RATE > 60.0 (>32); GLUCOSE, FASTING 109 MG/DL (70-100); POTASSIUM SERUM 3.7 MEQ/L (3.5-5.1); SODIUM LEVEL 140 MEQ/L (136-145)
== END ==
PROVIDERS: ATTEND Internal Medicine
DX: I10 Essential (primary) hypertension (principal)

== ENCOUNTER → 2018-11-24 | Outpatient (REF) ==
[2018-11-24 09:35] LABS: HEMATOCRIT 40.7 % (36.0-47.0); HEMOGLOBIN 12.8 g/dl (12.0-15.5); MEAN CORPUSCULAR HEMOGLOBIN 29.5 pg (27.0-33.0); MEAN CORPUSCULAR HGB CONC 31.4 g/dl (32.0-36.5); MEAN CORPUSCULAR VOLUME 93.8 fl (80.0-96.0); PLATELET COUNT, AUTOMATED 435 10^3/uL (150-450); RED BLOOD COUNT 4.34 10^6/uL (4.00-5.40); WHITE BLOOD COUNT 7.9 10^3/uL (4.0-10.0)
[2018-11-24 09:52] LABS: BLOOD UREA NITROGEN 24 MG/DL (7-18); CHLORIDE LEVEL 104 MEQ/L (98-107); CREATININE FOR GFR 0.94 MG/DL (0.55-1.30); GLOMERULAR FILTRATION RATE > 60.0 (>32); GLUCOSE, FASTING 73 MG/DL (70-100); POTASSIUM SERUM 3.8 MEQ/L (3.5-5.1); SODIUM LEVEL 139 MEQ/L (136-145)
[2018-11-24 09:53] LABS: CALCIUM LEVEL 9.6 MG/DL (8.8-10.2); CARBON DIOXIDE LEVEL 27 MEQ/L (21-32)
== END ==
PROVIDERS: ATTEND Internal Medicine
DX: I10 Essential (primary) hypertension (principal)

== ENCOUNTER → 2018-12-21 | Outpatient (REF) ==
[2018-12-21 11:22] LABS: HEMATOCRIT 32.5 % (36.0-47.0); HEMOGLOBIN 10.5 g/dl (12.0-15.5); MEAN CORPUSCULAR HEMOGLOBIN 29.5 pg (27.0-33.0); MEAN CORPUSCULAR HGB CONC 32.3 g/dl (32.0-36.5); MEAN CORPUSCULAR VOLUME 91.3 fl (80.0-96.0); PLATELET COUNT, AUTOMATED 336 10^3/uL (150-450); RED BLOOD COUNT 3.56 10^6/uL (4.00-5.40); WHITE BLOOD COUNT 13.6 10^3/uL (4.0-10.0)
[2018-12-21 11:39] LABS: CALCIUM LEVEL 8.4 MG/DL (8.8-10.2); CREATININE FOR GFR 2.65 MG/DL (0.55-1.30); GLOMERULAR FILTRATION RATE 18.2 (>32); POTASSIUM SERUM 3.7 MEQ/L (3.5-5.1)
== END ==
PROVIDERS: ATTEND Internal Medicine
DX: D72.829 Elevated white blood cell count, unspecified (principal)

== ENCOUNTER → 2018-12-22 | Outpatient (CLI) | payer MEDICARE, MEDICAID ==
--- NOTE | 2018-12-22 15:41 | REP ---
Clinical: Chronic medical renal disease. Technique: Real time encinas scale ultrasound examination using curved array transducer. Findings: Right kidney is normal in reniform shape and includes increased medullary echogenicity with cortical thinning and moderate hydronephrosis along with stent extending into the renal pelvis. Multiple calcifications consistent with nonobstructing stones measuring up to 2.4 cm noted. Left kidney is poorly evaluated due to positioning and demonstrates normal reniform shape without hydronephrosis. Blakely catheter identified in bladder. Impression: Moderate right-sided hydronephrosis with multiple nonobstructing calculi up to 2.4 cm and stent extending into the right renal pelvis. Electronically Signed by Julio De La Vega MD 12/22/2018 03:31 P
== END ==
LOC: M RAD 14:22
PROVIDERS: ATTEND Physician Assistant
DX: N18.9 Chronic kidney disease, unspecified (principal)

== ENCOUNTER → 2018-12-22 | Outpatient (REF) ==
[2018-12-22 11:36] LABS: HEMATOCRIT 33.7 % (36.0-47.0); HEMOGLOBIN 10.8 g/dl (12.0-15.5); MEAN CORPUSCULAR VOLUME 90.3 fl (80.0-96.0); PLATELET COUNT, AUTOMATED 434 10^3/uL (150-450); RED BLOOD COUNT 3.73 10^6/uL (4.00-5.40); WHITE BLOOD COUNT 17.1 10^3/uL (4.0-10.0)
[2018-12-22 11:53] LABS: CALCIUM LEVEL 8.5 MG/DL (8.8-10.2); CREATININE FOR GFR 2.29 MG/DL (0.55-1.30); GLOMERULAR FILTRATION RATE 21.5 (>32); POTASSIUM SERUM 4.2 MEQ/L (3.5-5.1)
[2018-12-22 13:35] LABS: C REACTIVE PROTEIN QUANTITATIV 19.5 MG/DL (0.00-0.30)
== END ==
PROVIDERS: ATTEND Internal Medicine
DX: N39.0 Urinary tract infection, site not specified (principal)

== ENCOUNTER → 2018-12-23 | Outpatient (REF) | payer MEDICARE, MEDICAID ==
[2018-12-23 07:16] LABS: HEMATOCRIT 28.8 % (36.0-47.0); HEMOGLOBIN 9.3 g/dl (12.0-15.5); MEAN CORPUSCULAR HEMOGLOBIN 29.1 pg (27.0-33.0); MEAN CORPUSCULAR HGB CONC 32.3 g/dl (32.0-36.5); PLATELET COUNT, AUTOMATED 379 10^3/uL (150-450); WHITE BLOOD COUNT 12.2 10^3/uL (4.0-10.0)
[2018-12-23 07:30] LABS: CALCIUM LEVEL 8.1 MG/DL (8.8-10.2); CREATININE FOR GFR 1.96 MG/DL (0.55-1.30); GLOMERULAR FILTRATION RATE 25.7 (>32); POTASSIUM SERUM 4.5 MEQ/L (3.5-5.1)
== END ==
PROVIDERS: ATTEND Internal Medicine
DX: N39.0 Urinary tract infection, site not specified (principal)

== ENCOUNTER → 2018-12-24 | Outpatient (CLI) | payer MEDICARE, MEDICAID ==
--- NOTE | 2018-12-24 14:19 | REP ---
Clinical: Lower abdominal pain. Technique: Axial noncontrast images from the lung bases to the pubic symphysis with coronal and sagittal re-formations. Comparison: 06/21/2018. Findings: Lung bases demonstrate moderate pleural effusions with bibasilar atelectasis. Left kidney is atrophic and demonstrates stable renovascular calcifications without hydroureteronephrosis. The right kidney is asymmetrically enlarged, includes renovascular calcifications as well as nonobstructing calyces of calcifications and grade 4 chronic hydroureteronephrosis perinephric and periureteral stranding. A right ureteral stent is identified in satisfactory stable position. Blakely catheter noted in collapsed bladder. These findings are essentially stable compared to 06/21/2018. Liver, spleen, pancreas, distended gallbladder, and bilateral adrenal glands are normal / stable. The enteric system is without obstruction or acute inflammatory process. Pelvis is incompletely evaluated due to metallic streak artifact from right hip/femoral orthopedic hardware. No significant ascites. No free air. No obvious adenopathy. Severe atherosclerotic changes of the aorta and vasculature throughout the abdomen and pelvis noted. Osseous structures demonstrate degenerative changes including stable vertebra plana and compression deformities involving the thoracic and lumbar vertebral bodies. Impression: 1. Chronic stable findings as detailed above essentially unchanged when compared with 06/21/2018. Electronically Signed by Julio De La Vega MD 12/24/2018 02:10 P
== END ==
LOC: M RAD 13:24
PROVIDERS: ATTEND Physician Assistant
DX: R10.30 Lower abdominal pain, unspecified (principal); N39.0 Urinary tract infection, site not specified; Z96.0 Presence of urogenital implants

== ENCOUNTER → 2018-12-24 | Outpatient (REF) | payer MEDICARE, MEDICAID ==
[2018-12-24 07:13] LABS: HEMATOCRIT 26.2 % (36.0-47.0); HEMOGLOBIN 8.6 g/dl (12.0-15.5); MEAN CORPUSCULAR HGB CONC 32.8 g/dl (32.0-36.5); MEAN CORPUSCULAR VOLUME 88.2 fl (80.0-96.0); PLATELET COUNT, AUTOMATED 358 10^3/uL (150-450); RED BLOOD COUNT 2.97 10^6/uL (4.00-5.40); WHITE BLOOD COUNT 8.6 10^3/uL (4.0-10.0)
[2018-12-24 07:40] LABS: CALCIUM LEVEL 7.9 MG/DL (8.8-10.2); CREATININE FOR GFR 1.61 MG/DL (0.55-1.30); GLOMERULAR FILTRATION RATE 32.3 (>32); POTASSIUM SERUM 4.7 MEQ/L (3.5-5.1)
== END ==
PROVIDERS: ATTEND Internal Medicine
DX: N39.0 Urinary tract infection, site not specified (principal)

== ENCOUNTER → 2018-12-26 | Outpatient (REF) | payer MEDICARE, MEDICAID ==
[2018-12-26 06:49] LABS: HEMATOCRIT 27.6 % (36.0-47.0); HEMOGLOBIN 9.1 g/dl (12.0-15.5); MEAN CORPUSCULAR HEMOGLOBIN 29.8 pg (27.0-33.0); MEAN CORPUSCULAR VOLUME 90.5 fl (80.0-96.0); PLATELET COUNT, AUTOMATED 395 10^3/uL (150-450); RED BLOOD COUNT 3.05 10^6/uL (4.00-5.40); WHITE BLOOD COUNT 8.9 10^3/uL (4.0-10.0)
[2018-12-26 07:00] LABS: CALCIUM LEVEL 8.6 MG/DL (8.8-10.2); CREATININE FOR GFR 1.12 MG/DL (0.55-1.30); GLOMERULAR FILTRATION RATE 49.1 (>32); POTASSIUM SERUM 4.3 MEQ/L (3.5-5.1)
== END ==
PROVIDERS: ATTEND Internal Medicine
DX: N39.0 Urinary tract infection, site not specified (principal)

== ENCOUNTER → 2018-12-27 | Outpatient (REF) | payer MEDICARE, MEDICAID ==
[2018-12-27 10:16] LABS: HEMATOCRIT 32.1 % (36.0-47.0); HEMOGLOBIN 10.3 g/dl (12.0-15.5); MEAN CORPUSCULAR HEMOGLOBIN 29.5 pg (27.0-33.0); MEAN CORPUSCULAR HGB CONC 32.1 g/dl (32.0-36.5); PLATELET COUNT, AUTOMATED 430 10^3/uL (150-450); RED BLOOD COUNT 3.49 10^6/uL (4.00-5.40); WHITE BLOOD COUNT 9.3 10^3/uL (4.0-10.0)
[2018-12-27 10:36] LABS: CALCIUM LEVEL 8.6 MG/DL (8.8-10.2); CREATININE FOR GFR 0.99 MG/DL (0.55-1.30); GLOMERULAR FILTRATION RATE 56.6 (>32); POTASSIUM SERUM 4.2 MEQ/L (3.5-5.1)
== END ==
PROVIDERS: ATTEND Internal Medicine
DX: N39.0 Urinary tract infection, site not specified (principal)

== ENCOUNTER → 2018-12-29 | Outpatient (REF) ==
[2018-12-29 08:21] LABS: HEMATOCRIT 29.2 % (36.0-47.0); HEMOGLOBIN 9.3 g/dl (12.0-15.5); MEAN CORPUSCULAR HEMOGLOBIN 28.2 pg (27.0-33.0); MEAN CORPUSCULAR HGB CONC 31.8 g/dl (32.0-36.5); MEAN CORPUSCULAR VOLUME 88.5 fl (80.0-96.0); PLATELET COUNT, AUTOMATED 426 10^3/uL (150-450); WHITE BLOOD COUNT 7.1 10^3/uL (4.0-10.0)
[2018-12-29 08:54] LABS: BLOOD UREA NITROGEN 14 MG/DL (7-18); CALCIUM LEVEL 8.6 MG/DL (8.8-10.2); CARBON DIOXIDE LEVEL 29 MEQ/L (21-32); CHLORIDE LEVEL 107 MEQ/L (98-107); CREATININE FOR GFR 0.82 MG/DL (0.55-1.30); GLOMERULAR FILTRATION RATE > 60.0 (>32); GLUCOSE, FASTING 81 MG/DL (70-100); SODIUM LEVEL 144 MEQ/L (136-145)
== END ==
PROVIDERS: ATTEND Internal Medicine
DX: I10 Essential (primary) hypertension (principal)

== ENCOUNTER → 2019-01-26 | Outpatient (REF) | payer MEDICARE, MEDICAID ==
[2019-01-26 11:33] LABS: HEMATOCRIT 33.8 % (36.0-47.0); HEMOGLOBIN 10.9 g/dl (12.0-15.5); MEAN CORPUSCULAR HEMOGLOBIN 29.9 pg (27.0-33.0); MEAN CORPUSCULAR HGB CONC 32.2 g/dl (32.0-36.5); MEAN CORPUSCULAR VOLUME 92.6 fl (80.0-96.0); PLATELET COUNT, AUTOMATED 331 10^3/uL (150-450); RED BLOOD COUNT 3.65 10^6/uL (4.00-5.40)
[2019-01-26 12:04] LABS: BLOOD UREA NITROGEN 31 MG/DL (7-18); CALCIUM LEVEL 8.9 MG/DL (8.8-10.2); CARBON DIOXIDE LEVEL 29 MEQ/L (21-32); CHLORIDE LEVEL 103 MEQ/L (98-107); GLOMERULAR FILTRATION RATE > 60.0 (>32); GLUCOSE, FASTING 126 MG/DL (70-100); POTASSIUM SERUM 3.4 MEQ/L (3.5-5.1); SODIUM LEVEL 140 MEQ/L (136-145)
== END ==
PROVIDERS: ATTEND Physician Assistant
DX: D64.9 Anemia, unspecified (principal)

== ENCOUNTER → 2019-02-04 | Outpatient (REF) | payer MEDICARE, MEDICAID ==
[~2019-02-04] MED LIST changes: +ACET650S3 PO; +ACIDTAB3 PO; +ALPR0.5T3 PO; +BISA10SU20 PR; +CALC-239 PO; +CEFE1INJ5 IV; +CRAN400C PO; +MILKSUS21 PO; +ROXI1TAB2 PO; +TRAM50TA2 PO; +VITA200016 PO; +ZOFR4TAB16 PO
[2019-02-04 11:20] LABS: AMORPHOUS SEDIMENT SMALL (NEGATIVE); APPEARANCE, URINE TURBID (CLEAR); BACTERIA, URINE AUTO 3+ (NEGATIVE); BILIRUBIN, URINE AUTO NEGATIVE (NEGATIVE); BLOOD, URINE BLOOD 1+ (NEGATIVE); COLOR, URINE YELLOW (YELLOW); GLUCOSE, URINE (UA) AUTO NEGATIVE (NEGATIVE); KETONE, URINE AUTO NEGATIVE (NEGATIVE); LEUKOCYTE ESTERASE, URINE AUTO 3+ (NEGATIVE); MUCUS, URINE SMALL (NEGATIVE); NITRITE, URINE AUTO NEGATIVE (NEGATIVE); PROTEIN, URINE AUTO 2+ mg/dL (NEGATIVE); RBC, URINE AUTO 47 /HPF (0-3); SPECIFIC GRAVITY URINE AUTO 1.015 (1.002-1.035); SQUAMOUS EPITHELIAL CELL UR AU 0 /HPF (0-6); UROBILINOGEN, URINE AUTO 0.2 mg/dL (0.0-2.0); WBC, URINE AUTO TNTC /HPF (0-3)
[2019-02-04 14:06] LABS: CALCIUM LEVEL 9.2 MG/DL (8.8-10.2); CREATININE FOR GFR 1.96 MG/DL (0.55-1.30); GLOMERULAR FILTRATION RATE 25.7 (>32); POTASSIUM SERUM 3.9 MEQ/L (3.5-5.1)
== END ==
PROVIDERS: ATTEND Internal Medicine
DX: R79.89 Other specified abnormal findings of blood chemistry (principal); N39.0 Urinary tract infection, site not specified; I10 Essential (primary) hypertension

== ENCOUNTER → 2019-02-08 | Outpatient (REF) | payer MEDICARE, MEDICAID ==
[~2019-02-08] MED LIST changes: -ACET650S3 PO; -ACIDTAB3 PO; -ALPR0.5T3 PO; -BISA10SU20 PR; -CALC-239 PO; -CEFE1INJ5 IV; -CRAN400C PO; -MILKSUS21 PO; -ROXI1TAB2 PO; -TRAM50TA2 PO; -VITA200016 PO; -ZOFR4TAB16 PO
[2019-02-08 10:08] LABS: HEMATOCRIT 30.3 % (36.0-47.0); HEMOGLOBIN 9.7 g/dl (12.0-15.5); MEAN CORPUSCULAR HEMOGLOBIN 29.5 pg (27.0-33.0); MEAN CORPUSCULAR VOLUME 92.1 fl (80.0-96.0); PLATELET COUNT, AUTOMATED 483 10^3/uL (150-450); RED BLOOD COUNT 3.29 10^6/uL (4.00-5.40); WHITE BLOOD COUNT 11.9 10^3/uL (4.0-10.0)
[2019-02-08 10:29] LABS: CALCIUM LEVEL 8.8 MG/DL (8.8-10.2); CREATININE FOR GFR 2.09 MG/DL (0.55-1.30); GLOMERULAR FILTRATION RATE 23.9 (>32); POTASSIUM SERUM 4.2 MEQ/L (3.5-5.1)
== END ==
PROVIDERS: ATTEND Internal Medicine
DX: N39.0 Urinary tract infection, site not specified (principal)

== ENCOUNTER → 2019-02-09 | Outpatient (REF) | payer MEDICARE, MEDICAID ==
[~2019-02-09] MED LIST changes: +ACET650S3 PO; +ACIDTAB3 PO; +ALPR0.5T3 PO; +BISA10SU20 PR; +CALC-239 PO; +CEFE1INJ5 IV; +CRAN400C PO; +MILKSUS21 PO; +ROXI1TAB2 PO; +TRAM50TA2 PO; +VITA200016 PO; +ZOFR4TAB16 PO
[2019-02-09 09:22] LABS: HEMATOCRIT 27.3 % (36.0-47.0); HEMOGLOBIN 8.8 g/dl (12.0-15.5); MEAN CORPUSCULAR HEMOGLOBIN 29.2 pg (27.0-33.0); MEAN CORPUSCULAR HGB CONC 32.2 g/dl (32.0-36.5); MEAN CORPUSCULAR VOLUME 90.7 fl (80.0-96.0); PLATELET COUNT, AUTOMATED 449 10^3/uL (150-450); RED BLOOD COUNT 3.01 10^6/uL (4.00-5.40); WHITE BLOOD COUNT 12.2 10^3/uL (4.0-10.0)
[2019-02-09 09:47] LABS: CALCIUM LEVEL 8.2 MG/DL (8.8-10.2); CREATININE FOR GFR 1.73 MG/DL (0.55-1.30); GLOMERULAR FILTRATION RATE 29.7 (>32); POTASSIUM SERUM 4.2 MEQ/L (3.5-5.1)
== END ==
PROVIDERS: ATTEND Internal Medicine
DX: N39.0 Urinary tract infection, site not specified (principal)
CPT/HCPCS: 36415; 80048; 85027; G0463

== ENCOUNTER → 2019-02-10 | Outpatient (REF) | payer MEDICARE, MEDICAID ==
[~2019-02-10] MED LIST changes: -ACET650S3 PO; -ACIDTAB3 PO; -ALPR0.5T3 PO; -BISA10SU20 PR; -CALC-239 PO; -CEFE1INJ5 IV; -CRAN400C PO; -MILKSUS21 PO; -ROXI1TAB2 PO; -TRAM50TA2 PO; -VITA200016 PO; -ZOFR4TAB16 PO
[2019-02-10 12:39] LABS: HEMATOCRIT 29.6 % (36.0-47.0); HEMOGLOBIN 9.3 g/dl (12.0-15.5); MEAN CORPUSCULAR HEMOGLOBIN 29.1 pg (27.0-33.0); MEAN CORPUSCULAR HGB CONC 31.4 g/dl (32.0-36.5); MEAN CORPUSCULAR VOLUME 92.5 fl (80.0-96.0); PLATELET COUNT, AUTOMATED 492 10^3/uL (150-450); WHITE BLOOD COUNT 12.7 10^3/uL (4.0-10.0)
[2019-02-10 13:03] LABS: CALCIUM LEVEL 8.6 MG/DL (8.8-10.2); CREATININE FOR GFR 1.64 MG/DL (0.55-1.30); GLOMERULAR FILTRATION RATE 31.6 (>32); POTASSIUM SERUM 4.6 MEQ/L (3.5-5.1)
== END ==
PROVIDERS: ATTEND Internal Medicine
DX: N39.0 Urinary tract infection, site not specified (principal)

== ENCOUNTER → 2019-02-14 | Outpatient (REF) ==
[~2019-02-14] MED LIST changes: +ACET650S3 PO; +ACIDTAB3 PO; +BISA10SU20 PR; +CALC-239 PO; +CRAN400C PO; +MILKSUS21 PO; +TRAM50TA2 PO; +VITA200016 PO; +ZOFR4TAB16 PO
--- NOTE | 2019-02-14 12:26 | REP ---
PA and lateral chest: Comparison is 04/26/2018. There is chronic mild diffuse interstitial coarsening compatible with chronic lung disease, unchanged. The lung [place] are, otherwise, clear. Cardiac size is normal. The key[place], mediastinum, skeletal structures are unchanged. Compression deformities of the approximate L1 and T6 vertebral bodies are again identified, unchanged. Impression: No acute cardiopulmonary findings. Electronically Signed by Aaron Ryan MD 02/14/2019 12:18 P
== END ==
LOC: M RAD 10:54
PROVIDERS: ATTEND Internal Medicine
DX: Z01.818 Encounter for other preprocedural examination (principal)

== ENCOUNTER → 2019-02-15 | Outpatient (REF) ==
[2019-02-15 10:55] LABS: HEMATOCRIT 27.7 % (36.0-47.0); HEMOGLOBIN 8.7 g/dl (12.0-15.5); MEAN CORPUSCULAR HEMOGLOBIN 29.2 pg (27.0-33.0); MEAN CORPUSCULAR HGB CONC 31.4 g/dl (32.0-36.5); PLATELET COUNT, AUTOMATED 598 10^3/uL (150-450); RED BLOOD COUNT 2.98 10^6/uL (4.00-5.40); WHITE BLOOD COUNT 9.4 10^3/uL (4.0-10.0)
[2019-02-15 11:08] LABS: INR 1.16; PROTHROMBIN TIME 14.5 SECONDS (11.8-14.0)
[2019-02-15 11:09] LABS: PARTIAL THROMBOPLASTIN TIME 37.2 SECONDS (25.0-38.4)
[2019-02-15 11:19] LABS: CALCIUM LEVEL 8.4 MG/DL (8.8-10.2); CREATININE FOR GFR 1.54 MG/DL (0.55-1.30); POTASSIUM SERUM 4.6 MEQ/L (3.5-5.1)
== END ==
PROVIDERS: ATTEND Internal Medicine
DX: N17.9 Acute kidney failure, unspecified (principal)

== ENCOUNTER → 2019-02-23 | Outpatient (REF) ==
[2019-02-23 08:56] LABS: HEMATOCRIT 31.5 % (36.0-47.0); HEMOGLOBIN 9.7 g/dl (12.0-15.5); MEAN CORPUSCULAR HEMOGLOBIN 28.2 pg (27.0-33.0); MEAN CORPUSCULAR HGB CONC 30.8 g/dl (32.0-36.5); MEAN CORPUSCULAR VOLUME 91.6 fl (80.0-96.0); PLATELET COUNT, AUTOMATED 529 10^3/uL (150-450); RED BLOOD COUNT 3.44 10^6/uL (4.00-5.40); WHITE BLOOD COUNT 11.3 10^3/uL (4.0-10.0)
[2019-02-23 09:19] LABS: CALCIUM LEVEL 9.6 MG/DL (8.8-10.2); CREATININE FOR GFR 1.55 MG/DL (0.55-1.30); GLOMERULAR FILTRATION RATE 33.7 (>32)
== END ==
PROVIDERS: ATTEND Internal Medicine
DX: I10 Essential (primary) hypertension (principal)

== ENCOUNTER → 2019-03-01 | Outpatient (REF) | payer MEDICARE ==
[2019-03-01 18:28] LABS: APPEARANCE, URINE TURBID (CLEAR); BACTERIA, URINE AUTO 2+ (NEGATIVE); BILIRUBIN, URINE AUTO NEGATIVE (NEGATIVE); BLOOD, URINE BLOOD 2+ (NEGATIVE); COLOR, URINE YELLOW (YELLOW); GLUCOSE, URINE (UA) AUTO NEGATIVE (NEGATIVE); KETONE, URINE AUTO NEGATIVE (NEGATIVE); LEUKOCYTE ESTERASE, URINE AUTO 3+ (NEGATIVE); NITRITE, URINE AUTO NEGATIVE (NEGATIVE); PROTEIN, URINE AUTO 2+ mg/dL (NEGATIVE); RBC, URINE AUTO 63 /HPF (0-3); SPECIFIC GRAVITY URINE AUTO 1.014 (1.002-1.035); SQUAMOUS EPITHELIAL CELL UR AU 0 /HPF (0-6); UROBILINOGEN, URINE AUTO 0.2 mg/dL (0.0-2.0); WBC, URINE AUTO TNTC /HPF (0-3)
== END ==
PROVIDERS: ATTEND Internal Medicine
DX: Z01.818 Encounter for other preprocedural examination (principal); N39.0 Urinary tract infection, site not specified

== ENCOUNTER 2019-03-07 18:44 | Emergency (ER) | payer MEDICARE, OTHER, MEDICAID ==
[~2019-03-07 18:44] MED LIST changes: -ALPR0.5T3 PO; -CEFE1INJ5 IV; -ROXI1TAB2 PO
[2019-03-07] MEDS ORDERED: ALPR0.5T3 PO (19:46)
[2019-03-07] MEDS ORDERED: CEFE1INJ5 IV (19:46)
[2019-03-07] MEDS ORDERED: ROXI1TAB2 PO (19:46)
[2019-03-07 21:04] LABS: BASO # 0.1 10^3/uL (0.0-0.2); BASO % 0.6 % (0.0-1.0); EOS # 0.4 10^3/uL (0.0-0.5); EOS % 3.4 % (0.0-3.0); HEMATOCRIT 29.3 % (36.0-47.0); HEMOGLOBIN 8.8 g/dl (12.0-15.5); LYMPH # 1.4 10^3/uL (1.5-5.0); MEAN CORPUSCULAR HEMOGLOBIN 27.1 pg (27.0-33.0); MEAN CORPUSCULAR VOLUME 90.2 fl (80.0-96.0); MONO # 0.8 10^3/uL (0.0-0.8); MONO % 6.2 % (0.0-5.0); NEUTROPHILS # 9.5 10^3/uL (1.5-8.5); NEUTROPHILS % 76.2 % (36.0-66.0); PLATELET COUNT, AUTOMATED 506 10^3/uL (150-450); RED BLOOD COUNT 3.25 10^6/uL (4.00-5.40); WHITE BLOOD COUNT 12.5 10^3/uL (4.0-10.0)
[2019-03-07 21:16] LABS: INR 1.18; PROTHROMBIN TIME 14.7 SECONDS (11.8-14.0)
[2019-03-07 21:17] LABS: PARTIAL THROMBOPLASTIN TIME 33.5 SECONDS (25.0-38.4)
[2019-03-07 21:38] LABS: CALCIUM LEVEL 9.6 MG/DL (8.8-10.2); CREATININE FOR GFR 1.55 MG/DL (0.55-1.30); GLOMERULAR FILTRATION RATE 33.7 (>32); POTASSIUM SERUM 5.6 MEQ/L (3.5-5.1)
[2019-03-07] MEDS ORDERED: OLANZapine INTRAMUSCULAR 10 MG VIAL (S0166) IM ONE (22:45)
[2019-03-08] MEDS ORDERED: SOD POLYSTYRENE SULFONATE SUSP 15 GM/60 ML UD PO ONE
[2019-03-08] MEDS ORDERED: ISOVUE-370 76% 100ML VIAL (Q9967) As Ordered ONE (00:07)
[2019-03-08] MEDS ORDERED: OLANZapine INTRAMUSCULAR 10 MG VIAL (S0166) IM ONE (00:15)
--- NOTE | 2019-03-08 01:13 | REPVR ---
PROCEDURE INFORMATION: Exam: CTA Right Lower Extremity With Contrast Exam date and time: 03/07/2019 11:49 PM Clinical history: 88 years old, female; Pain; Toes; Right; Additional info: R toe ischemia TECHNIQUE: Imaging protocol: CTA images of the Right lower extremity with intravenous contrast using CT angiography protocol. 3D rendering: MIP reconstructed images were created and reviewed. Radiation optimization: All CT scans at this facility use at least one of these dose optimization techniques: automated exposure control; mA and/or kV adjustment per patient size (includes targeted exams where dose is matched to clinical indication); or iterative reconstruction. Contrast material: ISO; Contrast volume: 100 ml; Contrast route: FOREARM; COMPARISON: No relevant prior studies available. FINDINGS: Right femoral/popliteal arteries: The visualized distal right popliteal artery demonstrates mild multifocal stenoses. Right infrapopliteal arteries: In the calf, there is probable origin stenosis of the right anterior tibial artery and multifocal stenoses of the posterior tibial/peroneal trunk with probable occlusion of the distal trunk. Prominent atherosclerotic calcification with prominent atherosclerotic calcification of the right posterior tibial artery. There is reconstitution of the peroneal artery which demonstrates additional multifocal stenoses appears to extend to the distal calf. The posterior tibial artery appears to be occluded proximally. The degree of heavy atherosclerotic calcification limits visualization of any reconstitution. The anterior tibial artery appears to be patent to the dorsalis pedis and appears to be the dominant vessel to the foot. Bones/joints: Right femoral medullary fam. Soft tissues: Unremarkable. IMPRESSION: 1. Prominent atherosclerotic calcification. 2. Mild multifocal stenoses of the popliteal artery. 3. Probable high-grade origin stenosis of the anterior tibial artery which is otherwise patent and apparently the dominant vessel to the foot as the dorsalis pedis. 4. Occlusion of the distal posterior tibial/peroneal trunk with some reconstitution of the peroneal artery which demonstrates multifocal stenoses and probable occlusion just above the ankle. 5. Occlusion of the proximal posterior tibial artery. Reconstitution is difficult to evaluate due to the degree of heavy atherosclerotic calcification of this vessel extending into the hindfoot. Electronically signed by: Tin Cordero On 03/08/2019 01:12:39 AM
--- NOTE | 2019-03-08 02:09 | ED PDOC ---
Post-Departure Follow-Up D/W daughter who requests to call Dr Kennedy, vascular surgeon at [facility]. Dr Lane covering for Dr Kennedy. Case presented to Dr Lane, including findings of CT angiogram of lower leg. Dr Lane declined to accept for further evaluation or treatment at [facility]. He states she can follow up at office of Dr Kennedy. D/W Dr Abreu @ [facility] who was gracious to accept this symptomatic pt. for further evaluation than is possible here at the present time. At the present time there is no Vascular surgery coverage. AYDE ADAMS DO Mar 08, 2019 02:09
[2019-03-08 03:24] VITALS: BP 159/70
== END 2019-03-08 03:33 | disposition short-term general hospital (02) ==
LOC: M ED 18:44
DX: I73.89 Other specified peripheral vascular diseases (principal); N39.0 Urinary tract infection, site not specified; F03.90 Unspecified dementia, unspecified severity, without behavioral disturbance, psychotic disturbance, mood disturbance, and anxiety; D64.9 Anemia, unspecified; Z86.718 Personal history of other venous thrombosis and embolism; Z87.440 Personal history of urinary (tract) infections; Z79.899 Other long term (current) drug therapy; Z79.01 Long term (current) use of anticoagulants; Z88.1 Allergy status to other antibiotic agents; Z88.2 Allergy status to sulfonamides
CPT/HCPCS: 73706; 80048; 81001; 85025; 85027; 85610; 85730; 87088; 87186; 96372; 99285; Q9967

== ENCOUNTER → 2019-03-07 | Outpatient (REF) | payer MEDICARE ==
[~2019-03-07] MED LIST changes: +ALPR0.5T3 PO; +CEFE1INJ5 IV; +ROXI1TAB2 PO
[2019-03-07 13:51] LABS: AMORPHOUS SEDIMENT MODERATE (NEGATIVE); APPEARANCE, URINE TURBID (CLEAR); BACTERIA, URINE AUTO 2+ (NEGATIVE); BILIRUBIN, URINE AUTO NEGATIVE (NEGATIVE); BLOOD, URINE BLOOD 3+ (NEGATIVE); GLUCOSE, URINE (UA) AUTO NEGATIVE (NEGATIVE); KETONE, URINE AUTO NEGATIVE (NEGATIVE); LEUKOCYTE ESTERASE, URINE AUTO 3+ (NEGATIVE); NITRITE, URINE AUTO NEGATIVE (NEGATIVE); PROTEIN, URINE AUTO 2+ mg/dL (NEGATIVE); RBC, URINE AUTO 136 /HPF (0-3); SPECIFIC GRAVITY URINE AUTO 1.011 (1.002-1.035); SQUAMOUS EPITHELIAL CELL UR AU 0 /HPF (0-6); TRANSITIONAL EPITHELIAL AUTO 3 /HPF; UROBILINOGEN, URINE AUTO 0.2 mg/dL (0.0-2.0); WBC, URINE AUTO TNTC /HPF (0-3)
[2019-03-07 14:00] LABS: COLOR, URINE YELLOW (YELLOW)
[2019-03-07 17:12] LABS: HEMATOCRIT 28.2 % (36.0-47.0); HEMOGLOBIN 8.4 g/dl (12.0-15.5); MEAN CORPUSCULAR HEMOGLOBIN 26.8 pg (27.0-33.0); MEAN CORPUSCULAR HGB CONC 29.8 g/dl (32.0-36.5); MEAN CORPUSCULAR VOLUME 90.1 fl (80.0-96.0); PLATELET COUNT, AUTOMATED 525 10^3/uL (150-450); RED BLOOD COUNT 3.13 10^6/uL (4.00-5.40); WHITE BLOOD COUNT 10.7 10^3/uL (4.0-10.0)
[2019-03-07 17:22] LABS: CALCIUM LEVEL 8.9 MG/DL (8.8-10.2); CREATININE FOR GFR 1.66 MG/DL (0.55-1.30); GLOMERULAR FILTRATION RATE 31.2 (>32); POTASSIUM SERUM 5.5 MEQ/L (3.5-5.1)
== END ==
PROVIDERS: ATTEND Internal Medicine
DX: N39.0 Urinary tract infection, site not specified (principal)